=== PATIENT | female | born 1970 | race Caucasian/White ===

== ENCOUNTER → 2018-03-30 08:31 | Outpatient (CLI) | payer BC, SELFPAY ==
[2018-03-30 09:02] LABS: Alanine Aminotransferase 25 IU/L (9-52); Albumin 4.2 g/dL (3.5-5.0); Albumin Globulin Ratio 1.4 (1.0-2.8); Alkaline Phosphatase 61 U/L (38-126); Aspartate Aminotransferase 19 IU/L (14-36); BUN Creatinine Ratio 26.3 (6-22); Bilirubin Total 0.7 mg/dL (0.2-1.3); Blood Urea Nitrogen 21 mg/dL (7-17); Calcium 9.4 mg/dL (8.4-10.2); Carbon Dioxide 35 mmol/L (22-32); Chloride 101 mmol/L (98-107); Cholesterol 202 mg/dL (140-199); Estimated Glomerular Filt Rate > 60.0 mL/min (>60); Globulin 3.1 g/dL (1.7-4.1); Glucose 102 mg/dL (70-100); HDL Cholesterol 64 mg/dL (40-60); HEMOLYSIS < 15 (0-50); LDL Cholesterol Calculated 122 mg/dL (<100); Potassium 4.1 mmol/L (3.4-5.1); Sodium 143 mmol/L (137-145); Total Protein 7.3 g/dL (6.3-8.2); Triglycerides 79 mg/dL (35-150)
== END ==
PROVIDERS: Family Provider Naturopath; PCP Internal Medicine; Visit Provider Internal Medicine
DX: Z00.00 Encounter for general adult medical examination without abnormal findings (principal); E55.9 Vitamin D deficiency, unspecified
CPT/HCPCS: 36415; 80053; 80061; 82306

== ENCOUNTER 2018-09-07 19:25 | Emergency (ER) | payer BC, SELFPAY ==
[2018-09-07 19:30] VITALS: BP 145/101; PULSE 92; RESP 20; TEMP 36.6; O2SAT 100; BMI 28.3
--- NOTE | 2018-09-07 19:31 | ED.GENADULT ---
HPI - General Adult General Chief complaint: Arrhythmia/Palpitations Stated complaint: palpitations and sob, sent by walk in Time Seen by Provider: 09/07/18 19:30 Source: patient Mode of arrival: ambulatory Limitations: no limitations History of Present Illness HPI narrative: Patient is an otherwise healthy 48-year-old female here for evaluation of palpitations. She was sent over from the walk-in clinic. She states that over the weekend she started to notice palpitations. They are difficult for her to describe. She is unsure as to how long they last but it seems to be a fairly short period of time. She states she does get short of breath when it happens. No chest pain. Does not get dizzy or pass out. She has noticed that for the past couple days they have become more pronounced. Has not tried anything for them prior to arrival. Related Data Home Medications Medication Instructions Recorded Confirmed acyclovir [Zovirax] #0 10/19/17 07/13/18 Allergies Allergy/AdvReac Type Severity Reaction Status Date / Time cefaclor Allergy Unknown RASH Verified 04/12/18 12:21 Review of Systems Constitutional Denies fever(s) and Denies headache(s) ENT Ears, Nose, Mouth, and Throat: Denies headache(s) Cardiovascular Denies chest pain, Reports palpitations and Reports dyspnea Respiratory Reports dyspnea Gastrointestinal Gastrointestinal: Denies abdominal pain, Denies nausea and Denies vomiting Musculoskeletal Denies myalgias and Denies arthralgias Integumentary/Breasts Denies rash Neurologic Denies behavioral changes and Denies headache(s) Psychiatric Denies behavioral changes Endocrine Reports palpitations Hematologic/Lymphatic Comments: Not on anticoagulation PFSH Medical History Healthy adult (Acute) Surgical History History of sinus surgery (Resolved 1989) Social History Smoking Status: Never smoker Social History Smoking Status: Never smoker Exam Initial Vital Signs Initial Vital Signs: Vital Signs Temperature 97.9 F 09/07/18 19:30 Pulse Rate 92 H 09/07/18 19:30 Respiratory Rate 20 09/07/18 19:30 Blood Pressure 145/101 H 09/07/18 19:30 Pulse Oximetry 100 09/07/18 19:30 Const General: cooperative, healthy appearing, comfortable, well developed, well groomed and No acute distress Orientation: alert, awake and oriented x3 HENMT Head: normal to inspection and normocephalic Chest Chest: normal inspection of the chest Resp Effort & Inspection: normal respiratory effort Auscultation: clear to auscultation bilaterally Cardio Rate: regular rate Rhythm: regular rhythm Pulses: radial pulses present GI Inspection: non-distended Palpation: soft Skin Lesions: no lesions Rashes: no rashes Neuro General: alert, awake and oriented x3 Cognition: normal cognition Speech: speech normal Extrem General: normal to inspection and capillary refill normal Psych Appearance: grossly normal and well kempt Course Orders Ordered: ED Orders 09/07/18 19:36 EKG-12 Lead Stat 09/07/18 20:07 Basic Metabolic Panel Stat Complete Blood Count AUTO DIFF Stat Vital Signs - 8 hr 09/07/18 19:30 09/07/18 20:00 Temperature 97.9 F Pulse Rate 92 H 85 Respiratory Rate 20 16 Blood Pressure 145/101 H Blood Pressure [Left Arm] 132/94 H Pulse Oximetry 100 100 Medical Decision Making Lab Data Lab results reviewed: Yes I reviewed the patient's lab results. Result diagrams: 09/07/18 20:07 09/07/18 20:07 Lab Results 09/07/18 09/07/18 Range/Units 20:07 20:07 WBC 7.1 (4.5-11.0) X10^3/uL RBC 4.88 (4.0-5.2) X10^6/uL Hgb 13.8 (12.0-16.0) g/dL Hct 41.3 (36-46) % MCV 84.6 (80-100) fL MCH 28.4 (26-34) PG MCHC 33.5 (30-36) % RDW 13.7 (11.6-14.8) % Plt Count 264 (150-400) X10^3/uL Neut % (Auto) 64.3 (50-75) % Lymph % (Auto) 27.5 (25-40) % [place]acier % (Auto) 6.2 (3-14) % Eos % (Auto) 1.5 L (2-4) % Baso % (Auto) 0.5 (0-2) % Neut # (Auto) 4600 (9746-8818) /uL Lymph # (Auto) 2000 (1677-9005) /uL Glac[place] # (Auto) 400 (0-900) /uL Eos # (Auto) 100 (0-450) /uL Baso # (Auto) 0 (0-100) /uL Sodium 139 (137-145) mmol/L Potassium 3.4 (3.4-5.1) mmol/L Chloride 101 (98-107) mmol/L Carbon Dioxide 29 (22-32) mmol/L BUN 21 H (7-17) mg/dL Creatinine 0.70 (0.52-1.04) mg/dL Estimated GFR > 60.0 (>60) mL/min BUN/Creatinine Ratio 30.0 H (6-22) Glucose 141 H (70-100) mg/dL Calcium 9.2 (8.4-10.2) mg/dL ECG Data Attestation: I personally reviewed and interpreted this ECG as follows: Prior ECG tracings: not available for review Interpretation: sinus rhythm LVH Normal QRS normal QTC Nonspecific ST T wave changes ventricular rate 82 MDM Narrative Medical decision making narrative: patient's labs are unremarkable. EKG is unremarkable. Were unable to catch any abnormal rhythms while she was being monitored here in the ER. We did discuss return precautions. We did discuss that she needed to follow up with her primary doctor to discuss the indications for a Holter monitor. Will hold on further workup for now. Patient expressed understanding and agreement with plan. Discharge Plan Departure Patient Disposition: Home Clinical Impression: Palpitations Instructions: DI for Palpitations Activity Restrictions/Additional Instructions: recommend that you contact your primary care doctor tomorrow to schedule a follow-up appointment to discuss the indications for a Holter monitor. Return to the emergency department for any new or worsening symptoms Prescriptions: No Action acyclovir [Zovirax] 200 mg Capsule Qty: 0 RF: 0 Referrals: Roseanna Joshi MD [Primary Care Provider] -
[2018-09-07 20:00] VITALS: BP 132/94; PULSE 85; RESP 16; O2SAT 100
[2018-09-07 20:15] LABS: Add Manual Diff / Slide Review NO; Basophils Absolute Auto 0 /uL (0-100); Basophils Percent Auto 0.5 % (0-2); Eosinophils Absolute Auto 100 /uL (0-450); Eosinophils Percent Auto 1.5 % (2-4); Hematocrit 41.3 % (36-46); Hemoglobin 13.8 g/dL (12.0-16.0); Lymphocytes Absolute Auto 2000 /uL (1100-4500); Lymphocytes Percent Auto 27.5 % (25-40); Mean Corpuscular HGB Conc 33.5 % (30-36); Mean Corpuscular Hemoglobin 28.4 PG (26-34); Mean Corpuscular Volume 84.6 fL (80-100); Monocytes Absolute Auto 400 /uL (0-900); Monocytes Percent Auto 6.2 % (3-14); Neutrophils Absolute Auto 4600 /uL (1500-7000); Neutrophils Percent Auto 64.3 % (50-75); Platelet Count 264 X10^3/uL (150-400); Red Blood Cell Count 4.88 X10^6/uL (4.0-5.2); Red Cell Distribution Width 13.7 % (11.6-14.8); White Blood Cell Count 7.1 X10^3/uL (4.5-11.0)
[2018-09-07 20:28] LABS: Blood Urea Nitrogen 21 mg/dL (7-17); Calcium 9.2 mg/dL (8.4-10.2); Carbon Dioxide 29 mmol/L (22-32); Chloride 101 mmol/L (98-107); Estimated Glomerular Filt Rate > 60.0 mL/min (>60); Glucose 141 mg/dL (70-100); HEMOLYSIS < 15 (0-50); Potassium 3.4 mmol/L (3.4-5.1); Sodium 139 mmol/L (137-145)
[2018-09-07 21:00] VITALS: BP 137/82; PULSE 80; RESP 14; O2SAT 97
== END 2018-09-07 21:11 | disposition home or self-care (01) ==
PROVIDERS: Emergency Provider Emergency Medicine; Family Provider Naturopath; PCP Internal Medicine
DX: R00.2 Palpitations (principal)
CPT/HCPCS: 36415; 80048; 85025; 93005; 93010; 99282; 99284

== ENCOUNTER → 2018-09-09 13:23 | Outpatient (CLI) | payer BC, SELFPAY ==
[2018-09-09 14:00] LABS: B Type Natriuretic Peptide < 100 (<100)
[2018-09-09 14:28] LABS: Erythrocyte Sedimentation Rate 7 MM/HR (0-20)
[2018-09-09 15:56] LABS: C-Reactive Protein Quant 0.7 mg/dL (<1.0)
[2018-09-09 16:10] LABS: Free T4, Direct Thyroxine 0.97 ng/dL (0.78-2.19)
[2018-09-09 16:24] LABS: Thyroid Stimulating Hormone 1.34 uIU/mL (0.47-4.68)
== END ==
PROVIDERS: PCP Internal Medicine; Visit Provider Internal Medicine
DX: R00.2 Palpitations (principal); R06.00 Dyspnea, unspecified
CPT/HCPCS: 36415; 83880; 84439; 84443; 85651; 86140

== ENCOUNTER → 2018-09-20 11:07 | Outpatient (CLI) | payer BC, SELFPAY ==
[2018-09-20 12:19] LABS: C-Reactive Protein Quant 0.9 mg/dL (<1.0)
[2018-09-20 12:31] LABS: B Type Natriuretic Peptide < 100 (<100)
[2018-09-20 13:02] LABS: Free T4, Direct Thyroxine 0.99 ng/dL (0.78-2.19)
[2018-09-20 13:16] LABS: Thyroid Stimulating Hormone 1.23 uIU/mL (0.47-4.68)
[2018-09-20 13:24] LABS: Erythrocyte Sedimentation Rate 7 MM/HR (0-20)
== END ==
PROVIDERS: PCP Internal Medicine; Visit Provider Internal Medicine
DX: R00.2 Palpitations (principal); R06.00 Dyspnea, unspecified
CPT/HCPCS: 36415; 83880; 84439; 84443; 85651; 86140

== ENCOUNTER → 2018-09-26 09:35 | Outpatient (CLI) | payer BC, SELFPAY ==
[2018-09-26 11:00] LABS: Add Manual Diff / Slide Review NO; Basophils Absolute Auto 0 /uL (0-100); Basophils Percent Auto 0.2 % (0-2); Eosinophils Absolute Auto 100 /uL (0-450); Eosinophils Percent Auto 2.3 % (2-4); Hematocrit 41.4 % (36-46); Hemoglobin 13.6 g/dL (12.0-16.0); Lymphocytes Absolute Auto 1700 /uL (1100-4500); Lymphocytes Percent Auto 31.9 % (25-40); Mean Corpuscular HGB Conc 32.9 % (30-36); Mean Corpuscular Volume 85.3 fL (80-100); Monocytes Absolute Auto 400 /uL (0-900); Monocytes Percent Auto 6.8 % (3-14); Neutrophils Absolute Auto 3100 /uL (1500-7000); Neutrophils Percent Auto 58.8 % (50-75); Platelet Count 260 X10^3/uL (150-400); Red Blood Cell Count 4.85 X10^6/uL (4.0-5.2); Red Cell Distribution Width 13.8 % (11.6-14.8); White Blood Cell Count 5.3 X10^3/uL (4.5-11.0)
[2018-09-26 11:04] LABS: Hemoglobin A1C% w Est Avg Glu 5.6 % (4.0-6.0)
[2018-09-26 11:22] LABS: Alanine Aminotransferase 21 IU/L (9-52); Albumin 4.2 g/dL (3.5-5.0); Albumin Globulin Ratio 1.5 (1.0-2.8); Alkaline Phosphatase 67 U/L (38-126); Aspartate Aminotransferase 17 IU/L (14-36); BUN Creatinine Ratio 32.9 (6-22); Bilirubin Total 0.4 mg/dL (0.2-1.3); Blood Urea Nitrogen 23 mg/dL (7-17); Calcium 9.1 mg/dL (8.4-10.2); Carbon Dioxide 27 mmol/L (22-32); Chloride 103 mmol/L (98-107); Estimated Glomerular Filt Rate > 60.0 mL/min (>60); Globulin 2.8 g/dL (1.7-4.1); Glucose 94 mg/dL (70-100); HEMOLYSIS < 15 (0-50); Potassium 4.1 mmol/L (3.4-5.1); Sodium 139 mmol/L (137-145)
== END ==
PROVIDERS: PCP Internal Medicine; Visit Provider Internal Medicine
DX: R73.9 Hyperglycemia, unspecified (principal); R00.2 Palpitations
CPT/HCPCS: 36415; 80053; 83036; 85025

== ENCOUNTER → 2018-09-29 14:56 | Outpatient (CLI) | payer BC, SELFPAY ==
--- NOTE | 2018-09-29 | DI.ECHO.S_ITS ---
[place] +---------+ Hospital +---------+ : : [address] : : : : [id number] : : : : Phone: [phone]+ Echocardiogram Report + + :Name: CATHY NIX Study Date: 09/29/2018 Height: 66 in : :[facility] Weight: 160 lb : : Gender: Female BSA: 1.8 m2 : :: 1970 Age: 48 yrs BP: 138/86 mmHg: :Reason For Study: Dyspnea, Palpitations : :Ordering Physician: Isaac : :Adi Performed By: Coco Ledesma : :Referring: ISAAC GATES : + + Interpretation Summary Normal sinus rhythm. Normal LV size, wall thickness, wall motion and LV systolic function. EF is 60-65%. No diastolic dysfunction. Normal chamber sizes. No valvular abnormalities. A very small pericardial effusion. No prior study available for comparison. Procedure: A two-dimensional transthoracic echocardiogram with color flow and Doppler was performed. The study quality was technically adequate. There is no prior echocardiogram noted for this patient. The patient was in normal sinus rhythm during the exam. Left Ventricle: The left ventricle is normal in size, wall thickness, and systolic function without any focal wall motion abnormalities. There is no ventricular septal defect visualized. The ejection fraction is estimated to be 65-70%. Diastolic parameters suggest probable normal left ventricular diastolic function and normal filling pressures. Right Ventricle: The right ventricle is normal in size and function. Atria: Both atria are normal in size. There is no Doppler evidence for an interatrial shunt. Mitral Valve: The mitral valve is normal in structure and function. There is no mitral regurgitation noted. Aortic Valve: The aortic valve is normal in structure and function. No aortic regurgitation is present. Tricuspid Valve: The tricuspid valve is normal in structure and function. There is a trace or physiologic amount of tricuspid regurgitation. Pulmonary artery pressures cannot be estimated because of the lack of a measurable TR jet velocity. Pulmonic Valve: The pulmonic valve is not well seen, but is grossly normal. There is a trace or physiologic amount of pulmonic regurgitation. Great Vessels: The aortic root is normal size. The ascending aorta is normal in size. The aortic arch is normal in size. The IVC is of normal diameter and collapses greater than 50% with a sniff. This suggests a low right atrial pressure of 3 mm Hg. Pericardium/ Pleura There are no echocardiographic or Doppler indications for cardiac tamponade. A very small pericardial effusion, located in the mid- posterior section behind the RV. MMode/2D Measurements & Calculations LVIDd: 4.4 cm LVOT diam: 1.9 cm LVIDs: 2.3 cm Ao root diam: 2.7 cm FS: 47.5 % Aortic Jxn: 2.2 cm EPSS: 0.20 cm asc Aorta Diam: 2.8 cm IVSd: 0.52 cm Ao Arch Diam (Prox Trans): 2.5 cm LVPWd: 0.94 cm LV mary. diameter/BSA (cm/m^2): 2.4 LV sys. diameter/BSA (cm/m^2): 1.3 LA A2 area: 15.8 cm2 RA long axis: 4.4 cm LA A4 area: 16.4 cm2 RA area: 11.9 cm2 LA length (vol): 4.3 cm RA vol: 27.8 ml LA vol: 51.5 ml RA : 15.3 ml/m2 LA vol index: 28.3 ml/m2 IVC diam: 1.3 cm TAPSE: 2.7 cm Doppler Measurements & Calculations Ao V2 max: 135.8 cm/sec LVOT Max Gustavo: 109.3 cm/sec Ao V2 mean: 87.5 cm/sec LV V1 max P.8 mmHg Ao max P.4 mmHg LV V1 VTI: 21.4 cm Ao mean P.5 mmHg DORIAN(I,D): 2.3 cm2 Ao V2 VTI: 26.7 cm DORIAN(V,D): 2.3 cm2 sev ratio: 0.80 DORIAN indexed to BSA (cm^2/m^2): 1.3 MV E max gustavo: 66.6 cm/sec PA V2 max: 75.7 cm/sec MV A max gustavo: 55.0 cm/sec PA V2 mean: 57.0 cm/sec MV E/A: 1.2 PA mean P.4 mmHg Med Peak E' Gustavo: 8.4 cm/sec PA pr(Accel): 29.1 mmHg E/E' med: 7.9 Lat Peak E' Gustavo: 10.9 cm/sec E/E' lat: 6.1 E/e' average: 7.0 MV dec time: 0.18 sec MV P1/2t: 52.3 msec MV P1/2t max gustavo: 66.8 cm/sec SV(LVOT): 62.4 ml MALORIE(P1/2t): 4.2 cm2 Electronically signed by: Meera Cuba M.D. on Reading Physician:09/30/2018 02:57 AM
== END ==
PROVIDERS: Family Provider Internal Medicine; PCP Internal Medicine; Visit Provider Internal Medicine
DX: R06.00 Dyspnea, unspecified (principal); R00.2 Palpitations; I31.3 Pericardial effusion (noninflammatory)
CPT/HCPCS: 93306

== ENCOUNTER → 2018-09-30 08:06 | Outpatient (CLI) | payer BC, SELFPAY ==
--- NOTE | 2018-09-30 | DI.RAD.S_ITS ---
PROCEDURE: XR CHEST 2V INDICATIONS: CHEST PAIN TECHNIQUE: 2 views of the chest were acquired. COMPARISON: [facility], , CHEST 2 VIEW, 06/17/2016, 14:27. FINDINGS: Surgical changes and devices: None. Lungs and pleura: Lungs are clear. No pleural effusions or pneumothorax. Mediastinum: Mediastinal contours are normal. Heart size is normal. Bones and chest wall: No suspicious bony abnormalities. Soft tissues appear unremarkable. IMPRESSION: Normal for age, a source of current chest pain symptoms is not found. Dictated by: Grady Villa M.D. on 09/30/2018 at 10:05 Approved by: Grady Villa M.D. on 09/30/2018 at 10:05
--- NOTE | 2018-09-30 09:38 | PM.TREADMILL ---
Cardiac Stress Test Report Referral & Results Date Patient Seen: 09/30/18 Requesting provider: Azra Watts Indication: Chest pain Rest ECG: Unremarkable Procedure Note: Today following both written and verbal informed consent, the patient was exercised according to a standard [place] protocol. The patient exercised for a total of 10 minutes 5 seconds achieving a maximum heart rate of 145 approximately (lots of motion artifact obscures ability to see heart rate). Patient's maximum systolic blood pressure was 160 for. This was an estimated 10.[address]-T segment changes were identified upon immediate cessation of activity. There was a tremendous amount of motion artifact while patient was actually exercising that obscured ability to see ST segments. Normal heart rate and blood pressure response Functional aerobic impairment rates-20% on the active scale Impression: No evidence of ischemia. Artifact was present but there is absolutely no change upon immediate cessation of activity thus making it extremely unlikely any significant ischemia or dysrhythmia were present. Excellent exercise capacity Clinical correlation suggested Please note: Actual ECG tracings can be found in the PACS system.
== END ==
PROVIDERS: Family Provider Internal Medicine; PCP Internal Medicine; Visit Provider Internal Medicine
DX: R07.9 Chest pain, unspecified (principal); R06.09 Other forms of dyspnea
CPT/HCPCS: 71046; 93016; 93017; 93018

== ENCOUNTER → 2018-10-06 10:46 | Outpatient (CLI) | payer BC, SELFPAY ==
[2018-10-06 12:05] LABS: Erythrocyte Sedimentation Rate 8 MM/HR (0-20)
[2018-10-06 12:40] LABS: C-Reactive Protein Quant 0.9 mg/dL (<1.0); Creatine Kinase 35 U/L (30-135)
[2018-10-06 12:42] LABS: Rheumatoid Factor 13.2 IU/mL (<12.0)
[2018-10-06 12:45] LABS: Troponin I < 0.012 ng/mL (0.01-0.034)
[2018-10-08 11:31] LABS: CCP Antibody (IgG) < 16 Units (< 20)
[2018-10-08 15:04] LABS: ANA Screen, IFA Negative (Negative)
[2018-10-11 20:43] LABS: Acetylcholine receptor antibod 9
== END ==
PROVIDERS: Family Provider Internal Medicine; PCP Internal Medicine; Visit Provider Internal Medicine
DX: I31.3 Pericardial effusion (noninflammatory) (principal); R06.00 Dyspnea, unspecified; R49.0 Dysphonia; R53.1 Weakness
CPT/HCPCS: 36415; 82550; 83516; 83519; 84484; 85651; 86038; 86140; 86430

== ENCOUNTER → 2018-10-15 09:00 | Outpatient (CLI) | payer BC, SELFPAY ==
[2018-10-17 12:32] LABS: Angiotensin Converting Enzyme 44 U/L (9-67)
== END ==
PROVIDERS: PCP Internal Medicine; Visit Provider Internal Medicine
DX: R06.00 Dyspnea, unspecified (principal); R00.2 Palpitations; R76.8 Other specified abnormal immunological findings in serum
CPT/HCPCS: 36415; 82164

== ENCOUNTER → 2018-10-28 09:49 | Outpatient (CLI) | payer BC, SELFPAY ==
--- NOTE | 2018-10-28 09:52 | DI.CT.S_ITS ---
PROCEDURE: CT CHEST HIGH RESOLUTION INDICATIONS: Pericardial effusion (noninflammatory) TECHNIQUE: Noncontrast 1.0 and 5.0 mm thick contiguous axial sections from the pulmonary apex to the posterior costophrenic angles, with 7 mm thick coronal and sagittal MIP reformats. 1 mm thick dynamic expiratory images acquired through the upper, mid, and lower lungs. 1.0 mm thick axial sections acquired from the delfin to the posterior costophrenic angles in the prone end-inspiration position. For radiation dose reduction, the following was used: automated exposure control, adjustment of mA and/or kV according to patient size. COMPARISON: [facility], CR, XR CHEST 2V, 09/30/2018, 9:25. FINDINGS: Image quality: Excellent. Lungs: The lung parenchyma appears normal, there is no sign of alveolitis or pulmonary fibrosis. Pleura: No pleural effusions or pneumothorax. Mediastinum: Heart size is normal. No pericardial effusion. Thoracic aorta and central pulmonary arteries are normal in size. Esophagus is normal in caliber. Bones and chest wall: No suspicious bony lesions. No vertebral body compression fractures. Abdomen: Visualized upper abdominal solid organs and bowel loops appear normal. IMPRESSION: The clinical history indicates concern for presence of pericardial effusion. No pericardial effusion is found. Through the lung parenchyma there is no sign of pulmonary fibrosis or alveolitis. No bronchiectasis or bronchitis is found. Study appears normal for age. Dictated by: Grady Villa M.D. on 10/28/2018 at 11:36 Approved by: Grady Villa M.D. on 10/28/2018 at 11:38
== END ==
PROVIDERS: PCP Internal Medicine; Visit Provider Internal Medicine
DX: I31.3 Pericardial effusion (noninflammatory) (principal)
CPT/HCPCS: 71250

== ENCOUNTER → 2018-11-11 12:49 | Outpatient (CLI) | payer BC, SELFPAY ==
--- NOTE | 2018-11-22 15:27 | PM.PFT.1 ---
Pulmonary Function Test Referral & Results Date Patient Seen: 11/11/18 Requesting provider: Azra Watts Results: The spirometry demonstrates an FVC of 3.40 L which is 91% of predicted. The FEV1 was measured at 2.80 L which is 94% of predicted. The FEV1/FVC ratio was 82 which is 102% of predicted. Following the administration of bronchodilator there was no appreciable change to above normal numbers. Lung volumes show an SVC of 3.34 L which is 97% of predicted. The diffusing capacity was measured at 20.73 which is 78% of predicted. No hemoglobin value was provided, so no correction for potential anemia could be made, if appropriate. The maximum voluntary ventilation was normal Interpretation: This study demonstrates normal spirometry and minimal reduction in diffusing capacity suggesting perhaps some element of disease the capillary alveolar level, unless patient is anemic
== END ==
PROVIDERS: PCP Internal Medicine; Visit Provider Internal Medicine
DX: R06.00 Dyspnea, unspecified (principal)
CPT/HCPCS: 94060; 94726; 94729

== ENCOUNTER → 2019-01-03 11:43 | Outpatient (CLI) | payer BC, SELFPAY ==
--- NOTE | 2019-01-03 | DI.RAD.S_ITS ---
PROCEDURE: XR PELVIS 1-2V INDICATIONS: Pelvic pain TECHNIQUE: 1 view(s) of the pelvis acquired. COMPARISON: None. FINDINGS: Bones: No fractures or dislocations. No suspicious bony lesions. Mild sacroiliac joint degeneration bilaterally. Soft tissues: Visualized bowel gas pattern is normal. No suspicious soft tissue calcifications. IMPRESSION: Mild sacroiliac joint degeneration bilaterally. Dictated by: Jordan Helms M.D. on 01/03/2019 at 14:11 Approved by: Jordan Helms M.D. on 01/03/2019 at 14:12
== END ==
PROVIDERS: PCP Internal Medicine; Visit Provider Internal Medicine
DX: R10.2 Pelvic and perineal pain (principal); M47.818 Spondylosis without myelopathy or radiculopathy, sacral and sacrococcygeal region
CPT/HCPCS: 72170

== ENCOUNTER → 2019-05-29 15:39 | Outpatient (RCR) | payer BC, SELFPAY ==
--- NOTE | 2017-11-09 13:37 | PT.OTN ---
Current Diagnoses Unspecified temporomandibular joint disorder, unspecified side (11/26/17) Cervicalgia (11/26/17) Abnormal posture (11/26/17) Headache (11/26/17) Weakness (11/26/17) Transition note: On November 09, 2017 our therapy services consisting of Speech, Occupational, and Physical Therapy transitioned from the [employer] electronic documentation system to a new [employer] electronic documentation system.?? All documentation prior to November 09 can be found under [employer] saved data. From November 09 forward all medical record documentation will be in [employer] 6[employer]1.
--- NOTE | 2017-11-26 14:54 | PT.OTN ---
Current Diagnoses Unspecified temporomandibular joint disorder, unspecified side (11/26/17) Cervicalgia (11/26/17) Abnormal posture (11/26/17) Headache (11/26/17) Weakness (11/26/17) Physical Therapy Treatment Note PT-OP-A Visit Information Start: 11/11/17 12:01 Freq: Status: Active Protocol: Document 11/26/17 13:00 [facility] (Rec: 11/26/17 14:54 [facility] [id number]) Out-Patient Physical Therapy Visit Information Visit Information Visit Type Progress Note Visit Start Time 13:00 Visit Stop Time 14:00 Total Visit Minutes 60 Number of ELECTROTHERAPIST Visits 0 PT-OP-C Subjective Start: 11/11/17 12:01 Freq: Status: Active Protocol: Document 11/26/17 13:00 [facility] (Rec: 11/26/17 14:54 [facility] [id number]) OP-PT Subjective Patient Comments Patient Comments Pt reports dog ate new glasses last and Wednesday she had a bad OLIVERA. Reports R sided neck & jaw tension. Neck is making clicking/rubbing noises . Has been doing jaw exercises daily, sometimes 2x/day. Maybe more as she does them intermittenly during day. PT-OP-J Posture/Palpation/Skin Start: 11/11/17 12:01 Freq: Status: Active Protocol: Document 11/26/17 13:00 [facility] (Rec: 11/26/17 14:54 [facility] [id number]) Posture Evaluation Comments Posture Comments sitting and standing posture- mild fwd shoulders & mod fwd head Palpation Assessment Location One Palpation Location jaw Palpation Findings Soft Tissue Tightness Tenderness Trigger Point Palpation Details R>L masseter, temporalis, digastric, pterygoid PT-OP-K Range of Motion Start: 11/11/17 12:01 Freq: Status: Active Protocol: Document 11/26/17 13:00 [facility] (Rec: 11/26/17 14:54 [facility] [id number]) Cervical Spine Range of Motion Cervical Spine Active Degrees Testing Position Sitting Flexion 60 Extension 65 Rotation Left 80 Rotation Right 73 Lateral Flexion Left 45 Lateral Flexion Right 45 Comments dizziness with looking up TMJ Range of Motion Jaw Openning Jaw Openning (mm) 3.1 cm Jaw Deviation Deviation Left (mm) 1 cm Deviation Right (mm) 1 cm PT-OP-M Strength Start: 11/11/17 12:01 Freq: Status: Active Protocol: Document 11/26/17 13:00 [facility] (Rec: 11/26/17 14:54 [facility] [id number]) Shoulder Strength Shoulder Manual Muscle Testing Right Reason Not Measured WFL Comments tested Left Reason Not Measured WFL Comments tested PT-OP-Q Treatments Start: 11/11/17 12:01 Freq: Status: Active Protocol: Document 11/26/17 13:00 [facility] (Rec: 11/26/17 14:54 [facility] [id number]) Manual Therapy Treatment Soft Tissue Mobilization 2 Body Location joint capsule/ptyergoid Mobilization Type Sustained Pressure Intensity/Depth Moderate Body Position Supine 1 Body Location Temporalis, masseter, digastric Mobilization Type Rolling Sustained Pressure Intensity/Depth Moderate Body Position Supine Joint Mobilizations 1 Joint TMJ Direction AP Grade II Body Position Supine PT-OP-R Modalities Start: 11/11/17 12:01 Freq: Status: Active Protocol: Document 11/26/17 13:00 [facility] (Rec: 11/26/17 14:54 [facility] [id number]) Hot Pack/Cold Pack Treatment Hot Pack Location Cervical & jaw Patient Position Hooklying Treatment Duration (minutes) 15 PT-OP-T Assessment and Plan Start: 11/11/17 12:01 Freq: Status: Active Protocol: Document 11/26/17 13:00 [facility] (Rec: 11/26/17 14:54 [facility] [id number]) Physical Therapy Assessment Impairments Impairments Pain Posture ROM Soft Tissue Mobility Strength Goals Five Impairment C-spine ROM Mcc Goal (LTG) WNL cervical ROM wihotu radicular pain into jaw region LTG Duration 12/05/17-achieved Four Impairment anterior posture iwth fwd head & shoulders Short Term Goal (STG) Good posture without cueing STG Duration by 12/27/1749-jjoiluhbjbo-kbfu to require cueing Three Impairment TMJ ROM Mcc Goal (LTG) open to 45 mm to allow pt to eat all food LTG Duration by 01/26/18 Two Impairment Am pain, worse in evening, cannot each cruchy food, pops w/yawn Mcc Goal (LTG) Able to eat all textures without pain LTG Duration by 01/26/18 One Impairment pain Mcc Goal (LTG) dec pain in TMJ to 1/10 at end of day. LTG Duration by 01/26/18 Assessment Summary Assessment Pt had improved cervical ROM with no radicular pain into jaw but did have dizziness with cervical ext. Pt has improved jaw deviation to normal but cont lasting deviation to L with jaw opening with occasional popping. Physical Therapy Plan Frequency and Duration Frequency of Treatment 1x/Week Duration of Treatment 2 months Plan of Care Start Date 11/26/17 Plan of Care End Date 01/26/18 Therapeutic Interventions Therapeutic Interventions Home Exercise Program Joint Mobilizations Manual Therapy Patient/Caregiver Education Self-Care/Home Management Soft Tissue Mobilization Taping Therapeutic Exercises Modalities Cold Pack/Ice Massage Electric Stimulation Hot Packs Traction- Mechanical Next Visit Focus/Plan Next Visit Plan Cont to work on jaw mobility
--- NOTE | 2017-11-26 14:55 | PT.OPPOC ---
Current Diagnoses Unspecified temporomandibular joint disorder, unspecified side (11/26/17) Cervicalgia (11/26/17) Abnormal posture (11/26/17) Headache (11/26/17) Weakness (11/26/17) Provider Visit Care Team Role Provider Type Roseanna Joshi MD Primary Care Provider Physician Specialty: Internal Medicine Address: [address] [place] [address], [id number] Email: Lisandra Madrigal ND Family Provider Non-Staff Specialty: Naturopathy Address: [address] [place] [address], [id number] Email: Eliceo Mcmullen DO Attending Provider Non-Staff Specialty: Neurology Address: [address] [place] [address], [address] Email: Plan Of Care PT-OP-T Assessment and Plan Start: 11/11/17 12:01 Freq: Status: Active Protocol: Document 11/26/17 13:00 [facility] (Rec: 11/26/17 14:54 [facility] [id number]) Physical Therapy Assessment Impairments Impairments Pain Posture ROM Soft Tissue Mobility Strength Goals Five Impairment C-spine ROM Predatory Game Hunter Goal (LTG) WNL cervical ROM wihotu radicular pain into jaw region LTG Duration 12/05/17-achieved Four Impairment anterior posture iwth fwd head & shoulders Short Term Goal (STG) Good posture without cueing STG Duration by 12/27/1776-[id number]-[id number] to require cueing Three Impairment TMJ ROM Senior Care Goal (LTG) open to 45 mm to allow pt to eat all food LTG Duration by 01/26/18 Two Impairment Am pain, worse in evening, cannot each cruchy food, pops w/yawn Senior Care Goal (LTG) Able to eat all textures without pain LTG Duration by 01/26/18 One Impairment pain Senior Care Goal (LTG) dec pain in TMJ to 1/10 at end of day. LTG Duration by 01/26/18 Assessment Summary Assessment Pt had improved cervical ROM with no radicular pain into jaw but did have dizziness with cervical ext. Pt has improved jaw deviation to normal but cont lasting deviation to L with jaw opening with occasional popping. Physical Therapy Plan Frequency and Duration Frequency of Treatment 1x/Week Duration of Treatment 2 months Plan of Care Start Date 11/26/17 Plan of Care End Date 01/26/18 Therapeutic Interventions Therapeutic Interventions Home Exercise Program Joint Mobilizations Manual Therapy Patient/Caregiver Education Self-Care/Home Management Soft Tissue Mobilization Taping Therapeutic Exercises Modalities Cold Pack/Ice Massage Electric Stimulation Hot Packs Traction- Mechanical Next Visit Focus/Plan Next Visit Plan Cont to work on jaw mobility Plan of Care Dates Plan of Care Start Date 11/26/17 Plan of Care End Date 01/26/18 Please Sign and Return: I have reviewed this Plan of Care and certify that the skilled therapy services above are required to meet the patient???s needs. Physician Signature Date Printed Name and Credentials
--- NOTE | 2017-12-03 15:16 | PT.OTN ---
Current Diagnoses Unspecified temporomandibular joint disorder, unspecified side (12/03/17) Cervicalgia (12/03/17) Abnormal posture (12/03/17) Headache (12/03/17) Weakness (12/03/17) Physical Therapy Treatment Note PT-OP-A Visit Information Start: 11/11/17 12:01 Freq: Status: Active Protocol: Document 12/03/17 15:08 [facility] (Rec: 12/03/17 15:16 [facility] [id number]) Out-Patient Physical Therapy Visit Information Visit Information Visit Type Treatment Note Visit Start Time 12:15 Visit Stop Time 13:00 Total Visit Minutes 45 Number of SUMMER ASSOCIATE Visits 0 PT-OP-C Subjective Start: 11/11/17 12:01 Freq: Status: Active Protocol: Document 12/03/17 15:08 [facility] (Rec: 12/03/17 15:16 [facility] [id number]) OP-PT Subjective Patient Comments Patient Comments Pt reports she has had some tension in her neck on R side and feels tight in her R jaw. PT-OP-J Posture/Palpation/Skin Start: 11/11/17 12:01 Freq: Status: Active Protocol: Document 11/26/17 13:00 [facility] (Rec: 11/26/17 14:54 [facility] [id number]) Posture Evaluation Comments Posture Comments sitting and standing posture- mild fwd shoulders & mod fwd head Palpation Assessment Location One Palpation Location jaw Palpation Findings Soft Tissue Tightness Tenderness Trigger Point Palpation Details R>L masseter, temporalis, digastric, pterygoid PT-OP-K Range of Motion Start: 11/11/17 12:01 Freq: Status: Active Protocol: Document 11/26/17 13:00 [facility] (Rec: 11/26/17 14:54 [facility] [id number]) Cervical Spine Range of Motion Cervical Spine Active Degrees Testing Position Sitting Flexion 60 Extension 65 Rotation Left 80 Rotation Right 73 Lateral Flexion Left 45 Lateral Flexion Right 45 Comments dizziness with looking up TMJ Range of Motion Jaw Openning Jaw Openning (mm) 3.1 cm Jaw Deviation Deviation Left (mm) 1 cm Deviation Right (mm) 1 cm PT-OP-M Strength Start: 11/11/17 12:01 Freq: Status: Active Protocol: Document 11/26/17 13:00 [facility] (Rec: 11/26/17 14:54 [facility] [id number]) Shoulder Strength Shoulder Manual Muscle Testing Right Reason Not Measured WFL Comments tested Left Reason Not Measured WFL Comments tested PT-OP-Q Treatments Start: 11/11/17 12:01 Freq: Status: Active Protocol: Document 12/03/17 15:08 [facility] (Rec: 12/03/17 15:16 [facility] [id number]) Therapeutic Exercises Sitting Exercises 2 Sitting Exercise Name jaw deviation 1 Sitting Exercise Name iso jaw opening partially openned Manual Therapy Treatment Soft Tissue Mobilization 3 Body Location Along jaw post & upper cervical region Mobilization Type Rolling Intensity/Depth Moderate Body Position Supine 2 Body Location joint capsule/ptyergoid Mobilization Type Sustained Pressure Intensity/Depth Moderate Body Position Supine 1 Body Location Temporalis, masseter, digastric Mobilization Type Rolling Sustained Pressure Intensity/Depth Moderate Body Position Supine Joint Mobilizations 2 Joint C1 Direction R UPA Grade II PT-OP-R Modalities Start: 11/11/17 12:01 Freq: Status: Active Protocol: Document 11/26/17 13:00 [facility] (Rec: 11/26/17 14:54 [facility] [id number]) Hot Pack/Cold Pack Treatment Hot Pack Location Cervical & jaw Patient Position Hooklying Treatment Duration (minutes) 15 PT-OP-T Assessment and Plan Start: 11/11/17 12:01 Freq: Status: Active Protocol: Document 12/03/17 15:08 [facility] (Rec: 12/03/17 15:16 [facility] [id number]) Physical Therapy Assessment Assessment Summary Assessment Pt had improved tracking of jaw with AP mobs & neuro re- edu, but is still limited with ROM for jaw opening. Tightness present greater on R side. Physical Therapy Plan Frequency and Duration Frequency of Treatment 1x/Week Duration of Treatment 2 months Plan of Care Start Date 11/26/17 Plan of Care End Date 01/26/18 Next Visit Focus/Plan Next Note Type Treatment Note Next Visit Plan Cont to work on jaw mobility Please Sign and Return: I have reviewed this Plan of Care and certify that the skilled therapy services above are required to meet the patient???s needs. Physician Signature Date Printed Name and Credentials Clinical Instructor Signature Printed Name and Credentials
--- NOTE | 2017-12-22 16:02 | PT.OTN ---
Current Diagnoses Unspecified temporomandibular joint disorder, unspecified side (12/22/17) Cervicalgia (12/22/17) Abnormal posture (12/22/17) Headache (12/22/17) Weakness (12/22/17) Physical Therapy Treatment Note PT-OP-A Visit Information Start: 11/11/17 12:01 Freq: Status: Active Protocol: Document 12/22/17 15:47 [facility] (Rec: 12/22/17 16:02 [facility] [id number]) Out-Patient Physical Therapy Visit Information Visit Information Visit Type Treatment Note Visit Start Time 12:15 Visit Stop Time 13:00 Total Visit Minutes 45 Number of AUTOMOBILE CLUB TRAVEL COUNSELOR Visits 0 PT-OP-C Subjective Start: 11/11/17 12:01 Freq: Status: Active Protocol: Document 12/22/17 15:47 [facility] (Rec: 12/22/17 16:02 [facility] [id number]) OP-PT Subjective Patient Comments Patient Comments Reports pain on/off. Has been working out more. PT-OP-J Posture/Palpation/Skin Start: 11/11/17 12:01 Freq: Status: Active Protocol: Document 11/26/17 13:00 [facility] (Rec: 11/26/17 14:54 [facility] [id number]) Posture Evaluation Comments Posture Comments sitting and standing posture- mild fwd shoulders & mod fwd head Palpation Assessment Location One Palpation Location jaw Palpation Findings Soft Tissue Tightness Tenderness Trigger Point Palpation Details R>L masseter, temporalis, digastric, pterygoid PT-OP-K Range of Motion Start: 11/11/17 12:01 Freq: Status: Active Protocol: Document 11/26/17 13:00 [facility] (Rec: 11/26/17 14:54 [facility] [id number]) Cervical Spine Range of Motion Cervical Spine Active Degrees Testing Position Sitting Flexion 60 Extension 65 Rotation Left 80 Rotation Right 73 Lateral Flexion Left 45 Lateral Flexion Right 45 Comments dizziness with looking up TMJ Range of Motion Jaw Openning Jaw Openning (mm) 3.1 cm Jaw Deviation Deviation Left (mm) 1 cm Deviation Right (mm) 1 cm PT-OP-M Strength Start: 11/11/17 12:01 Freq: Status: Active Protocol: Document 11/26/17 13:00 [facility] (Rec: 11/26/17 14:54 [facility] [id number]) Shoulder Strength Shoulder Manual Muscle Testing Right Reason Not Measured WFL Comments tested Left Reason Not Measured WFL Comments tested PT-OP-Q Treatments Start: 11/11/17 12:01 Freq: Status: Active Protocol: Document 12/22/17 15:47 [facility] (Rec: 12/22/17 16:02 [facility] [email or web address]) Therapeutic Exercises Supine Exercises 1 Supine Exercise Name stretch jaw opening Manual Therapy Treatment Soft Tissue Mobilization 3 Body Location Along jaw post & upper cervical region Mobilization Type Rolling Intensity/Depth Moderate Body Position Supine 2 Body Location joint capsule/ptyergoid Mobilization Type Sustained Pressure Intensity/Depth Moderate Body Position Supine 1 Body Location Temporalis, masseter, digastric Mobilization Type Rolling Sustained Pressure Intensity/Depth Moderate Body Position Supine Joint Mobilizations 2 Joint C1 Direction R UPA Grade II 1 Joint TMJ Direction AP & distraction Grade II Body Position Supine PT-OP-R Modalities Start: 11/11/17 12:01 Freq: Status: Active Protocol: Document 12/22/17 15:47 [facility] (Rec: 12/22/17 16:02 [facility] [id number]) Hot Pack/Cold Pack Treatment Hot Pack Location Cervical & jaw Patient Position Hooklying Treatment Duration (minutes) 15 PT-OP-T Assessment and Plan Start: 11/11/17 12:01 Freq: Status: Active Protocol: Document 12/22/17 15:47 [facility] (Rec: 12/22/17 16:02 [facility] [id number]) Physical Therapy Assessment Goals Five Impairment C-spine ROM Road Roller Engineer Goal (LTG) WNL cervical ROM wihotu radicular pain into jaw region LTG Duration 12/05/17-achieved Four Impairment anterior posture iwth fwd head & shoulders Short Term Goal (STG) Good posture without cueing STG Duration by 12/27/1784-[id number] to require cueing Three Impairment TMJ ROM Halfway Goal (LTG) open to 45 mm to allow pt to eat all food LTG Duration by 01/26/18 Two Impairment Am pain, worse in evening, cannot each cruchy food, pops w/yawn Road Roller Engineer Goal (LTG) Able to eat all textures without pain LTG Duration by 01/26/18 One Impairment pain Halfway Goal (LTG) dec pain in TMJ to 1/10 at end of day. LTG Duration by 01/26/18 Assessment Summary Assessment Pt is plateauing with jaw opening/closing and is following up with MD tomorrow. She is doing well with inc activity & dec OLIVERA and neck pain. Physical Therapy Plan Frequency and Duration Frequency of Treatment 1x/Week Duration of Treatment 2 months Plan of Care Start Date 11/26/17 Plan of Care End Date 01/26/18 Next Visit Focus/Plan Next Note Type Treatment Note Next Visit Plan Cont to work on jaw mobility & determine plan based on MD recommendations Please Sign and Return: I have reviewed this Plan of Care and certify that the skilled therapy services above are required to meet the patient?s needs. Physician Signature Date Printed Name and Credentials Clinical Instructor Signature Printed Name and Credentials
--- NOTE | 2018-01-05 14:27 | PT.OTN ---
Current Diagnoses Unspecified temporomandibular joint disorder, unspecified side (01/05/18) Cervicalgia (01/05/18) Abnormal posture (01/05/18) Headache (01/05/18) Weakness (01/05/18) Physical Therapy Treatment Note PT-OP-A Visit Information Start: 11/11/17 12:01 Freq: Status: Active Protocol: Document 01/05/18 12:59 [facility] (Rec: 01/05/18 14:27 [facility] [id number]) Out-Patient Physical Therapy Visit Information Visit Information Visit Type Treatment Note Visit Start Time 12:15 Visit Stop Time 13:10 Total Visit Minutes 55 Number of BEER COIL CLEANER Visits 0 PT-OP-C Subjective Start: 11/11/17 12:01 Freq: Status: Active Protocol: Document 01/05/18 12:59 [facility] (Rec: 01/05/18 14:27 [facility] [id number]) OP-PT Subjective Patient Comments Patient Comments No change. PT-OP-J Posture/Palpation/Skin Start: 11/11/17 12:01 Freq: Status: Active Protocol: Document 11/26/17 13:00 [facility] (Rec: 11/26/17 14:54 [facility] [id number]) Posture Evaluation Comments Posture Comments sitting and standing posture- mild fwd shoulders & mod fwd head Palpation Assessment Location One Palpation Location jaw Palpation Findings Soft Tissue Tightness Tenderness Trigger Point Palpation Details R>L masseter, temporalis, digastric, pterygoid PT-OP-K Range of Motion Start: 11/11/17 12:01 Freq: Status: Active Protocol: Document 11/26/17 13:00 [facility] (Rec: 11/26/17 14:54 [facility] [id number]) Cervical Spine Range of Motion Cervical Spine Active Degrees Testing Position Sitting Flexion 60 Extension 65 Rotation Left 80 Rotation Right 73 Lateral Flexion Left 45 Lateral Flexion Right 45 Comments dizziness with looking up TMJ Range of Motion Jaw Openning Jaw Openning (mm) 3.1 cm Jaw Deviation Deviation Left (mm) 1 cm Deviation Right (mm) 1 cm PT-OP-M Strength Start: 11/11/17 12:01 Freq: Status: Active Protocol: Document 11/26/17 13:00 [facility] (Rec: 11/26/17 14:54 [facility] [id number]) Shoulder Strength Shoulder Manual Muscle Testing Right Reason Not Measured WFL Comments tested Left Reason Not Measured WFL Comments tested PT-OP-Q Treatments Start: 11/11/17 12:01 Freq: Status: Active Protocol: Document 01/05/18 12:59 [facility] (Rec: 01/05/18 14:27 [facility] [id number]) Manual Therapy Treatment Soft Tissue Mobilization 3 Body Location Along jaw post & upper cervical region Mobilization Type Rolling Intensity/Depth Moderate Body Position Supine 2 Body Location joint capsule/ptyergoid Mobilization Type Sustained Pressure Intensity/Depth Moderate Body Position Supine 1 Body Location Temporalis, masseter, digastric Mobilization Type Rolling Sustained Pressure Intensity/Depth Moderate Body Position Supine Joint Mobilizations 1 Joint TMJ Direction AP & distraction Grade II Body Position Supine Self-Care/Home Management Treatment Education Other Education Discussed importance of following up with MD re: trigger point injections. Discussed possibility for counseling to help with dec clenching response. Discuss with MD & foxpro developer re: sleeping. PT-OP-R Modalities Start: 11/11/17 12:01 Freq: Status: Active Protocol: Document 01/05/18 12:59 [facility] (Rec: 01/05/18 14:27 [facility] [id number]) Hot Pack/Cold Pack Treatment Hot Pack Location Cervical & jaw Patient Position Hooklying Treatment Duration (minutes) 15 PT-OP-T Assessment and Plan Start: 11/11/17 12:01 Freq: Status: Active Protocol: Document 01/05/18 12:59 [facility] (Rec: 01/05/18 14:27 [facility] [id number]) Physical Therapy Assessment Assessment Summary Assessment Pt had improvement in soft tissue mobility & jaw opening with rx. She cont to require edu re: resting position and how to maintain neutral position of jaw during other activities. Physical Therapy Plan Frequency and Duration Frequency of Treatment 1x/Week Duration of Treatment 2 months Plan of Care Start Date 11/26/17 Plan of Care End Date 01/26/18 Therapeutic Interventions Therapeutic Interventions Home Exercise Program Joint Mobilizations Manual Therapy Patient/Caregiver Education Self-Care/Home Management Soft Tissue Mobilization Taping Therapeutic Exercises Modalities Cold Pack/Ice Massage Electric Stimulation Hot Packs Traction- Mechanical Next Visit Focus/Plan Next Note Type Treatment Note Next Visit Plan Cont to work on jaw mobility
--- NOTE | 2018-01-21 13:14 | PT.OTN ---
Current Diagnoses Unspecified temporomandibular joint disorder, unspecified side (01/21/18) Cervicalgia (01/21/18) Abnormal posture (01/21/18) Headache (01/21/18) Weakness (01/21/18) Physical Therapy Treatment Note PT-OP-A Visit Information Start: 11/11/17 12:01 Freq: Status: Active Protocol: Document 01/21/18 12:16 [facility] (Rec: 01/21/18 13:13 [facility] [id number]) Out-Patient Physical Therapy Visit Information Visit Information Visit Type Treatment Note Visit Start Time 12:25 Visit Stop Time 13:15 Total Visit Minutes 50 Number of LIVESTOCK FARMWORKER Visits 0 PT-OP-C Subjective Start: 11/11/17 12:01 Freq: Status: Active Protocol: Document 01/21/18 12:16 [facility] (Rec: 01/21/18 13:13 [facility] [id number]) OP-PT Subjective Patient Comments Patient Comments Sees Dr Mcmullen on Wed and Dr Bai Feb 18. Unsure about injection d/t unable to get ahold of office PT-OP-J Posture/Palpation/Skin Start: 11/11/17 12:01 Freq: Status: Active Protocol: Document 11/26/17 13:00 [facility] (Rec: 11/26/17 14:54 [facility] [id number]) Posture Evaluation Comments Posture Comments sitting and standing posture- mild fwd shoulders & mod fwd head Palpation Assessment Location One Palpation Location jaw Palpation Findings Soft Tissue Tightness Tenderness Trigger Point Palpation Details R>L masseter, temporalis, digastric, pterygoid PT-OP-K Range of Motion Start: 11/11/17 12:01 Freq: Status: Active Protocol: Document 01/21/18 12:16 [facility] (Rec: 01/21/18 13:13 [facility] [id number]) TMJ Range of Motion Jaw Openning Jaw Openning (mm) 2.5 cm Jaw Deviation Deviation Left (mm) 1 cm Deviation Right (mm) 1 cm PT-OP-M Strength Start: 11/11/17 12:01 Freq: Status: Active Protocol: Document 11/26/17 13:00 [facility] (Rec: 11/26/17 14:54 [facility] [id number]) Shoulder Strength Shoulder Manual Muscle Testing Right Reason Not Measured WFL Comments tested Left Reason Not Measured WFL Comments tested PT-OP-Q Treatments Start: 11/11/17 12:01 Freq: Status: Active Protocol: Document 01/21/18 12:16 [facility] (Rec: 01/21/18 13:13 [facility] [id number]) Manual Therapy Treatment Soft Tissue Mobilization 4 Body Location cranial fascae Mobilization Type Myofascial Release Comments FM w/jaw open/close 3 Body Location Along jaw post & upper cervical region Mobilization Type Rolling Intensity/Depth Moderate Body Position Supine 2 Body Location joint capsule/ptyergoid Mobilization Type Sustained Pressure Intensity/Depth Moderate Body Position Supine 1 Body Location Temporalis, masseter, digastric Mobilization Type Rolling Sustained Pressure Intensity/Depth Moderate Body Position Supine Joint Mobilizations 1 Joint TMJ Direction AP & distraction Grade II Body Position Supine PT-OP-R Modalities Start: 11/11/17 12:01 Freq: Status: Active Protocol: Document 01/21/18 12:16 [facility] (Rec: 01/21/18 13:13 [facility] [id number]) Hot Pack/Cold Pack Treatment Hot Pack Location Cervical & jaw Patient Position Hooklying Treatment Duration (minutes) 15 PT-OP-T Assessment and Plan Start: 11/11/17 12:01 Freq: Status: Active Protocol: Document 01/21/18 12:16 [facility] (Rec: 01/21/18 13:13 [facility] [id number]) Physical Therapy Assessment Impairments Impairments Pain Posture ROM Soft Tissue Mobility Strength Goals Four Impairment anterior posture iwth fwd head & shoulders Short Term Goal (STG) Good posture without cueing STG Duration by 02/20/18 Three Impairment TMJ ROM Senior Living Goal (LTG) open to 45 mm to allow pt to eat all food LTG Duration 03/23/18 Two Impairment Am pain, worse in evening, cannot each cruchy food, pops w/yawn Livestock Farmworker Goal (LTG) Able to eat all textures without pain LTG Duration 03/23/18 One Impairment pain Livestock Farmworker Goal (LTG) dec pain in TMJ to 1/10 at end of day. LTG Duration 03/23/18 Assessment Summary Assessment Improvement of jaw opening to 32 mm after manual rx. Pt encouraged to cont HEP. She cont to have R massetter significant tightness. She would likely benefit from trigger point injection recommended by d/t difficulty with releasing this mm with STM. Physical Therapy Plan Frequency and Duration Frequency of Treatment 1x/Week Duration of Treatment 2 months Plan of Care Start Date 01/21/18 Plan of Care End Date 03/24/18 Therapeutic Interventions Therapeutic Interventions Home Exercise Program Joint Mobilizations Manual Therapy Patient/Caregiver Education Self-Care/Home Management Soft Tissue Mobilization Taping Therapeutic Exercises Modalities Cold Pack/Ice Massage Electric Stimulation Hot Packs Traction- Mechanical Next Visit Focus/Plan Next Note Type Treatment Note Next Visit Plan Cont to work on jaw mobility
--- NOTE | 2018-01-21 13:14 | PT.OPPOC ---
Current Diagnoses Unspecified temporomandibular joint disorder, unspecified side (01/21/18) Cervicalgia (01/21/18) Abnormal posture (01/21/18) Headache (01/21/18) Weakness (01/21/18) Provider Visit Care Team Role Provider Type Roseanna Joshi MD Primary Care Provider Physician Specialty: Internal Medicine Address: [address] [place] [address], [phone] Email: Lisandra Madrigal ND Family Provider Non-Staff Specialty: Naturopathy Address: [address] [place] [address], [phone] Email: Eliceo Mcmullen DO Attending Provider Non-Staff Specialty: Neurology Address: [address] [place] [address], [phone] Email: Plan Of Care PT-OP-T Assessment and Plan Start: 11/11/17 12:01 Freq: Status: Active Protocol: Document 01/21/18 12:16 [facility] (Rec: 01/21/18 13:13 [facility] [id number]) Physical Therapy Assessment Impairments Impairments Pain Posture ROM Soft Tissue Mobility Strength Goals Four Impairment anterior posture iwth fwd head & shoulders Short Term Goal (STG) Good posture without cueing STG Duration by 02/20/18 Three Impairment TMJ ROM Direct Entry Midwife Goal (LTG) open to 45 mm to allow pt to eat all food LTG Duration 03/23/18 Two Impairment Am pain, worse in evening, cannot each cruchy food, pops w/yawn Direct Entry Midwife Goal (LTG) Able to eat all textures without pain LTG Duration 03/23/18 One Impairment pain Direct Entry Midwife Goal (LTG) dec pain in TMJ to 1/10 at end of day. LTG Duration 03/23/18 Assessment Summary Assessment Improvement of jaw opening to 32 mm after manual rx. Pt encouraged to cont HEP. She cont to have R massetter significant tightness. She would likely benefit from trigger point injection recommended by d/t difficulty with releasing this mm with STM. Physical Therapy Plan Frequency and Duration Frequency of Treatment 1x/Week Duration of Treatment 2 months Plan of Care Start Date 01/21/18 Plan of Care End Date 03/24/18 Therapeutic Interventions Therapeutic Interventions Home Exercise Program Joint Mobilizations Manual Therapy Patient/Caregiver Education Self-Care/Home Management Soft Tissue Mobilization Taping Therapeutic Exercises Modalities Cold Pack/Ice Massage Electric Stimulation Hot Packs Traction- Mechanical Next Visit Focus/Plan Next Note Type Treatment Note Next Visit Plan Cont to work on jaw mobility Plan of Care Dates Plan of Care Start Date 01/21/18 Plan of Care End Date 03/24/18 Please Sign and Return: I have reviewed this Plan of Care and certify that the skilled therapy services above are required to meet the patient?s needs. Physician Signature Date Printed Name and Credentials Clinical Instructor Signature Printed Name and Credentials
--- NOTE | 2018-01-28 16:27 | PT.OTN ---
Current Diagnoses Unspecified temporomandibular joint disorder, unspecified side (01/28/18) Cervicalgia (01/28/18) Abnormal posture (01/28/18) Headache (01/28/18) Weakness (01/28/18) Physical Therapy Treatment Note PT-OP-A Visit Information Start: 11/11/17 12:01 Freq: Status: Active Protocol: Document 01/28/18 16:17 [facility] (Rec: 01/28/18 16:27 [facility] [id number]) Out-Patient Physical Therapy Visit Information Visit Information Visit Type Treatment Note Visit Start Time 12:15 Visit Stop Time 13:10 Total Visit Minutes 55 Number of ADJUNCT PROFESSOR OF VOICE Visits 0 PT-OP-C Subjective Start: 11/11/17 12:01 Freq: Status: Active Protocol: Document 01/28/18 16:17 [facility] (Rec: 01/28/18 16:27 [facility] [id number]) OP-PT Subjective Patient Comments Patient Comments Reports Dr Mcmullen recommended she sees an oral surgeon. Reports he was not concerned about cervical region. PT-OP-J Posture/Palpation/Skin Start: 11/11/17 12:01 Freq: Status: Active Protocol: Document 11/26/17 13:00 [facility] (Rec: 11/26/17 14:54 [facility] [id number]) Posture Evaluation Comments Posture Comments sitting and standing posture- mild fwd shoulders & mod fwd head Palpation Assessment Location One Palpation Location jaw Palpation Findings Soft Tissue Tightness Tenderness Trigger Point Palpation Details R>L masseter, temporalis, digastric, pterygoid PT-OP-K Range of Motion Start: 11/11/17 12:01 Freq: Status: Active Protocol: Document 01/21/18 12:16 [facility] (Rec: 01/21/18 13:13 [facility] [id number]) TMJ Range of Motion Jaw Openning Jaw Openning (mm) 2.5 cm Jaw Deviation Deviation Left (mm) 1 cm Deviation Right (mm) 1 cm PT-OP-M Strength Start: 11/11/17 12:01 Freq: Status: Active Protocol: Document 11/26/17 13:00 [facility] (Rec: 11/26/17 14:54 [facility] [id number]) Shoulder Strength Shoulder Manual Muscle Testing Right Reason Not Measured WFL Comments tested Left Reason Not Measured WFL Comments tested PT-OP-Q Treatments Start: 11/11/17 12:01 Freq: Status: Active Protocol: Document 01/28/18 16:17 [facility] (Rec: 01/28/18 16:27 [facility] [id number]) Manual Therapy Treatment Soft Tissue Mobilization 5 Body Location ant cervical fascae & scar tissue Mobilization Type Myofascial Release Intensity/Depth Superficial Comments FM w/jaw open/close 3 Body Location Along jaw post & upper cervical region Mobilization Type Rolling Intensity/Depth Moderate Body Position Supine 2 Body Location joint capsule/ptyergoid Mobilization Type Sustained Pressure Intensity/Depth Moderate Body Position Supine 1 Body Location Temporalis, masseter, digastric Mobilization Type Rolling Sustained Pressure Intensity/Depth Moderate Body Position Supine Joint Mobilizations 1 Joint TMJ Direction AP & distraction Grade II Body Position Supine PT-OP-R Modalities Start: 11/11/17 12:01 Freq: Status: Active Protocol: Document 01/28/18 16:16 [facility] (Rec: 01/28/18 16:27 [facility] [id number]) Hot Pack/Cold Pack Treatment Cold Pack Location cervical into jaw Patient Position Hooklying Treatment Duration (minutes) 10 PT-OP-T Assessment and Plan Start: 11/11/17 12:01 Freq: Status: Active Protocol: Document 01/28/18 16:17 [facility] (Rec: 01/28/18 16:27 [facility] [id number]) Physical Therapy Assessment Goals Four Impairment anterior posture iwth fwd head & shoulders Short Term Goal (STG) Good posture without cueing STG Duration by 02/20/18 Three Impairment TMJ ROM Ent Physician Goal (LTG) open to 45 mm to allow pt to eat all food LTG Duration 03/23/18 Two Impairment Am pain, worse in evening, cannot each cruchy food, pops w/yawn Penitentiary Goal (LTG) Able to eat all textures without pain LTG Duration 03/23/18 One Impairment pain Penitentiary Goal (LTG) dec pain in TMJ to 1/10 at end of day. LTG Duration 03/23/18 Assessment Summary Assessment Improved jaw opening from 2.5 finger to about 3 fingers with treatment. Pt cont to have fascial tension from cervical scar tissue. Physical Therapy Plan Frequency and Duration Frequency of Treatment 1x/Week Duration of Treatment 2 months Plan of Care Start Date 01/21/18 Plan of Care End Date 03/24/18 Next Visit Focus/Plan Next Note Type Treatment Note Next Visit Plan Cont to work on jaw mobility & fascial mobility around jaw
--- NOTE | 2018-02-08 14:27 | PT.OTN ---
Current Diagnoses Unspecified temporomandibular joint disorder, unspecified side (02/08/18) Cervicalgia (02/08/18) Abnormal posture (02/08/18) Headache (02/08/18) Weakness (02/08/18) Physical Therapy Treatment Note PT-OP-A Visit Information Start: 11/11/17 12:01 Freq: Status: Active Protocol: Document 02/08/18 13:01 [facility] (Rec: 02/08/18 14:27 [facility] [id number]) Out-Patient Physical Therapy Visit Information Visit Information Visit Type Discharge Summary Visit Start Time 13:00 Visit Stop Time 13:55 Total Visit Minutes 55 Number of GRAIN UNLOADER Visits 0 PT-OP-C Subjective Start: 11/11/17 12:01 Freq: Status: Active Protocol: Document 02/08/18 13:01 [facility] (Rec: 02/08/18 14:27 [facility] [id number]) OP-PT Subjective Patient Comments Patient Comments Reports she had some relief after last session. Patient Questionnaires Neck Disability Index NDI Score 1/50 PT-OP-J Posture/Palpation/Skin Start: 11/11/17 12:01 Freq: Status: Active Protocol: Document 11/26/17 13:00 [facility] (Rec: 11/26/17 14:54 [facility] [id number]) Posture Evaluation Comments Posture Comments sitting and standing posture- mild fwd shoulders & mod fwd head Palpation Assessment Location One Palpation Location jaw Palpation Findings Soft Tissue Tightness Tenderness Trigger Point Palpation Details R>L masseter, temporalis, digastric, pterygoid PT-OP-K Range of Motion Start: 11/11/17 12:01 Freq: Status: Active Protocol: Document 02/08/18 13:01 [facility] (Rec: 02/08/18 14:27 [facility] [id number]) TMJ Range of Motion Jaw Openning Jaw Openning (mm) 3.3 cm PT-OP-M Strength Start: 11/11/17 12:01 Freq: Status: Active Protocol: Document 11/26/17 13:00 [facility] (Rec: 11/26/17 14:54 [facility] [id number]) Shoulder Strength Shoulder Manual Muscle Testing Right Reason Not Measured WFL Comments tested Left Reason Not Measured WFL Comments tested PT-OP-Q Treatments Start: 11/11/17 12:01 Freq: Status: Active Protocol: Document 02/08/18 13:01 [facility] (Rec: 02/08/18 14:27 [facility] [id number]) Manual Therapy Treatment Soft Tissue Mobilization 5 Body Location ant cervical fascae & scar tissue Mobilization Type Myofascial Release Intensity/Depth Superficial Comments FM w/jaw open/close 4 Body Location cranial fascae Mobilization Type Myofascial Release Comments FM w/jaw open/close 3 Body Location Along jaw post & upper cervical region Mobilization Type Rolling Intensity/Depth Moderate Body Position Supine 2 Body Location joint capsule/ptyergoid Mobilization Type Sustained Pressure Intensity/Depth Moderate Body Position Supine 1 Body Location Temporalis, masseter, digastric Mobilization Type Rolling Sustained Pressure Intensity/Depth Moderate Body Position Supine Joint Mobilizations 1 Joint TMJ Direction AP & distraction Grade II Body Position Supine PT-OP-R Modalities Start: 11/11/17 12:01 Freq: Status: Active Protocol: Document 02/08/18 13:01 [facility] (Rec: 02/08/18 14:27 [facility] [id number]) Hot Pack/Cold Pack Treatment Hot Pack Location Cervical & jaw Patient Position Hooklying Treatment Duration (minutes) 15 PT-OP-T Assessment and Plan Start: 11/11/17 12:01 Freq: Status: Active Protocol: Document 02/08/18 13:01 [facility] (Rec: 02/08/18 14:27 [facility] [id number]) Physical Therapy Assessment Goals Four Impairment anterior posture iwth fwd head & shoulders Short Term Goal (STG) Good posture without cueing STG Duration by 02/20/18-improved Three Impairment TMJ ROM Kiln Tester Goal (LTG) open to 45 mm to allow pt to eat all food LTG Duration 03/23/18-slight improvement Two Impairment Am pain, worse in evening, cannot each cruchy food, pops w/yawn Alf Goal (LTG) Able to eat all textures without pain LTG Duration 03/23/18 One Impairment pain Alf Goal (LTG) dec pain in TMJ to 1/10 at end of day. LTG Duration 03/23/18 Assessment Summary Assessment Improved jaw opening today to 3.3 cm. Pt cont to have significant tightness of jaw mm. Physical Therapy Plan Discharge Physical Therapy Discharge Reasons Plateau in Progress Discharge Comments Pt to cont HEP until trigger point injection.
--- NOTE | 2018-02-08 14:27 | PT.OPDS ---
Current Diagnoses Unspecified temporomandibular joint disorder, unspecified side (02/08/18) Cervicalgia (02/08/18) Abnormal posture (02/08/18) Headache (02/08/18) Weakness (02/08/18) Provider Visit Care Team Role Provider Type Roseanna Joshi MD Primary Care Provider Physician Specialty: Internal Medicine Address: [address] [place] [address], [phone] Email: Lisandra Madrigal ND Family Provider Non-Staff Specialty: Naturopathy Address: [address] [place] [address], [phone] Email: Eliceo Mcmullen DO Attending Provider Non-Staff Specialty: Neurology Address: [address] [place] [address], [phone] Email: Discharge Summary PT-OP-C Subjective Start: 11/11/17 12:01 Freq: Status: Active Protocol: Document 02/08/18 13:01 [facility] (Rec: 02/08/18 14:27 [facility] [id number]) OP-PT Subjective Patient Comments Patient Comments Reports she had some relief after last session. Patient Questionnaires Neck Disability Index NDI Score 1/50 PT-OP-J Posture/Palpation/Skin Start: 11/11/17 12:01 Freq: Status: Active Protocol: Document 11/26/17 13:00 [facility] (Rec: 11/26/17 14:54 [facility] [id number]) Posture Evaluation Comments Posture Comments sitting and standing posture- mild fwd shoulders & mod fwd head Palpation Assessment Location One Palpation Location jaw Palpation Findings Soft Tissue Tightness Tenderness Trigger Point Palpation Details R>L masseter, temporalis, digastric, pterygoid PT-OP-K Range of Motion Start: 11/11/17 12:01 Freq: Status: Active Protocol: Document 02/08/18 13:01 [facility] (Rec: 02/08/18 14:27 [facility] [id number]) TMJ Range of Motion Jaw Openning Jaw Openning (mm) 3.3 cm PT-OP-M Strength Start: 11/11/17 12:01 Freq: Status: Active Protocol: Document 11/26/17 13:00 [facility] (Rec: 11/26/17 14:54 [facility] [id number]) Shoulder Strength Shoulder Manual Muscle Testing Right Reason Not Measured WFL Comments tested Left Reason Not Measured WFL Comments tested PT-OP-T Assessment and Plan Start: 11/11/17 12:01 Freq: Status: Active Protocol: Document 02/08/18 13:01 [facility] (Rec: 02/08/18 14:27 [facility] [id number]) Physical Therapy Assessment Goals Four Impairment anterior posture iwth fwd head & shoulders Short Term Goal (STG) Good posture without cueing STG Duration by 02/20/18-improved Three Impairment TMJ ROM Concrete Mixer Truck Driver Goal (LTG) open to 45 mm to allow pt to eat all food LTG Duration 03/23/18-slight improvement Two Impairment Am pain, worse in evening, cannot each cruchy food, pops w/yawn Usp Goal (LTG) Able to eat all textures without pain LTG Duration 03/23/18 One Impairment pain Concrete Mixer Truck Driver Goal (LTG) dec pain in TMJ to 1/10 at end of day. LTG Duration 03/23/18 Assessment Summary Assessment Improved jaw opening today to 3.3 cm. Pt cont to have significant tightness of jaw mm. Physical Therapy Plan Discharge Physical Therapy Discharge Reasons Plateau in Progress Discharge Comments Pt to cont HEP until trigger point injection.
== END ==
LOC: PHYS 11-26 12:56
PROVIDERS: Family Provider Naturopath; PCP Internal Medicine; Visit Provider Neurological Surgery
DX: M26.609 Unspecified temporomandibular joint disorder, unspecified side (principal); R53.1 Weakness; M54.2 Cervicalgia; R51 Headache; R29.3 Abnormal posture
CPT/HCPCS: 97010; 97110; 97140; 97535

== ENCOUNTER → 2019-05-29 15:39 | Outpatient (RCR) | payer BC, SELFPAY ==
--- NOTE | 2017-12-01 16:20 | PT.OTN ---
Physical Therapy Treatment Note PT-OP-A Visit Information Start: 12/01/17 12:59 Freq: Status: Active Protocol: Document 12/01/17 13:11 AMB (Rec: 12/01/17 13:15 AMB [id number]) Out-Patient Physical Therapy Visit Information Visit Information Visit Type Treatment Note Visit Start Time 13:15 Visit Stop Time 13:45 Total Visit Minutes 30 Visit Number 8 Evaluation Information Evaluation Date 06/16/18 PT-OP-C Subjective Start: 12/01/17 12:59 Freq: Status: Active Protocol: Document 12/01/17 13:15 AMB (Rec: 12/01/17 13:28 AMB [id number]) OP-PT Subjective Patient Comments Patient Comments Pt feels that symptoms are worse around her period. Seeing Dr. Mcarthur sometime in December. PT-OP-Q Treatments Start: 12/01/17 12:59 Freq: Status: Active Protocol: Document 12/01/17 13:00 AMB (Rec: 12/01/17 16:20 AMB [id number]) Neuro Re-Education Treatment Other Activities pelvic floor strengthening Details with sEMG Comments quick flicks and long holds PT-OP-T Assessment and Plan Start: 12/01/17 12:59 Freq: Status: Active Protocol: Document 12/01/17 13:00 AMB (Rec: 12/01/17 16:20 AMB [id number]) Physical Therapy Assessment Assessment Summary Assessment Reframed when and how pt is doing HEP. Better strength today. Stress incontinence sx are improving, but frequency and urgency are worsening. Physical Therapy Plan Next Visit Focus/Plan Next Visit Plan Try standing pelvic floor strengthening. Please Sign and Return: I have reviewed this Plan of Care and certify that the skilled therapy services above are required to meet the patient???s needs. Physician Signature Date Printed Name and Credentials Clinical Instructor Signature Printed Name and Credentials
--- NOTE | 2017-12-27 15:24 | PT.OTN ---
Current Diagnoses Stress incontinence (female) (male) (12/27/17) Physical Therapy Treatment Note PT-OP-A Visit Information Start: 12/01/17 12:59 Freq: Status: Active Protocol: Document 12/27/17 13:00 AMB (Rec: 12/27/17 15:24 AMB [email or web address]) Out-Patient Physical Therapy Visit Information Visit Information Visit Type Discharge Summary Visit Start Time 13:00 Visit Stop Time 13:45 Total Visit Minutes 45 Visit Number 9 Evaluation Information Evaluation Date 06/16/18 PT-OP-C Subjective Start: 12/01/17 12:59 Freq: Status: Active Protocol: Document 12/27/17 13:00 AMB (Rec: 12/27/17 15:24 AMB [email or web address]) OP-PT Subjective Patient Comments Patient Comments Pt saw Dr. Mcarthur who is going to order urodynamics testing. PT-OP-I Pelvic Floor Start: 12/01/17 12:59 Freq: Status: Active Protocol: Document 12/27/17 13:00 AMB (Rec: 12/27/17 15:24 AMB [id number]) Pelvic Floor Assessment Urine Urinary Symptoms Urge Sensation Leakage Size Small Leakage Cause Cough Exercise Lifting Sneeze Urge Voiding Frequency 1-2 hours Urine Pad Type Panty Liner Pelvic Clock Pelvic Clock Other Pt with difficulty engaging pelvic floor when she is tired . Prolapse Prolapse Comments None baseline, but with bearing down anterior wall bulges mildly SEMG (uV) Baseline 3.5 Quick Contraction 8 Contraction Ability Voluntary Contraction Weak PT-OP-Q Treatments Start: 12/01/17 12:59 Freq: Status: Active Protocol: Document 12/27/17 13:00 AMB (Rec: 12/27/17 15:24 AMB [id number]) Neuro Re-Education Treatment Other Activities pelvic floor strengthening Details with sEMG Comments quick flicks and long holds Self-Care/Home Management Treatment Education Other Education Diet, urge reduction techniques PT-OP-T Assessment and Plan Start: 12/01/17 12:59 Freq: Status: Active Protocol: Document 12/27/17 13:00 AMB (Rec: 12/27/17 15:24 AMB [id number]) Physical Therapy Assessment Goals Two Impairment Stress incontinence Short Term Goal (STG) The patient will be able to cough without leaking. PARTIALLY MET-small coughs successful, large coughing fits difficult One Impairment Incontinence Short Term Goal (STG) The patient will feel complete emptying using self care techniques. NOT MET STG Duration 4 weeks Tuber Operator Goal (LTG) The patient will sleep through th enight without having to void urine. NOT MET LTG Duration 8 weeks Assessment Summary Assessment Pt's stress incontinence symptoms have improved, but she continues to have frequency and urgency that really have not improved with PT. Follow up with MD and then she can return if needed. Physical Therapy Plan Discharge Physical Therapy Discharge Reasons Plateau in Progress Discharge Comments Pt is going to follow up with Dr. Mcarthur and urodynamics study to see if she needs further PT at that point.
== END ==
LOC: PHYS 12-01 13:06
PROVIDERS: Family Provider Naturopath; PCP Internal Medicine; Visit Provider Internal Medicine
DX: N39.3 Stress incontinence (female) (male) (principal)
CPT/HCPCS: 97112; 97535

== ENCOUNTER 2019-05-30 15:00 | Outpatient (RCR) | payer BC, SELFPAY ==
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
--- NOTE | 2019-07-25 12:46 | PT-OP ANOTE ---
Per telconversation the pt reports just getting back from a 3 week trip and she feels she is doing well. She understands that if she needs more therapy for her pelvic pain then she will request a referral from her MD. Pt is being discharged from physical therapy.
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
== END 2019-08-03 12:58 ==
LOC: PHYS 15:00
PROVIDERS: PCP Internal Medicine; Visit Provider Internal Medicine
DX: R10.2 Pelvic and perineal pain (principal); M25.552 Pain in left hip
CPT/HCPCS: 97010; 97110; 97140; 97162; 97535

== ENCOUNTER → 2019-09-01 09:09 | Outpatient (CLI) | payer BC, SELFPAY ==
[2019-09-01 11:01] LABS: BUN Creatinine Ratio 34.3 (6-22); Blood Urea Nitrogen 24 mg/dL (7-17); Calcium 9.5 mg/dL (8.4-10.2); Carbon Dioxide 31 mmol/L (22-32); Chloride 105 mmol/L (98-107); Cholesterol 183 mg/dL (140-199); Estimated Glomerular Filt Rate > 60.0 mL/min (>60); Glucose 97 mg/dL (70-100); HDL Cholesterol 51 mg/dL (40-60); HEMOLYSIS < 15 (0-50); LDL Cholesterol Calculated 113 mg/dL (<100); Potassium 4.4 mmol/L (3.4-5.1); Sodium 141 mmol/L (137-145); Triglycerides 95 mg/dL (35-150)
== END ==
PROVIDERS: PCP Internal Medicine; Referring Provider Internal Medicine; Visit Provider Internal Medicine
DX: Z00.00 Encounter for general adult medical examination without abnormal findings (principal)
CPT/HCPCS: 36415; 80048; 80061

== ENCOUNTER → 2019-11-03 12:09 | Outpatient (CLI) | payer BC, SELFPAY ==
[2019-11-03 15:49] LABS: Influenza A - CEPHEID Flu A NEGATIVE (NEGATIVE); Influenza B - CEPHEID Flu B NEGATIVE (NEGATIVE)
[2019-11-06 13:10] LABS: COVID19 Sendout Not Detected (Not Detected)
== END ==
PROVIDERS: PCP Internal Medicine; Visit Provider Family Medicine
DX: R05 Cough (principal); R06.02 Shortness of breath; R50.9 Fever, unspecified
CPT/HCPCS: 87502; 87635

== ENCOUNTER → 2019-11-07 14:25 | Outpatient (CLI) | payer BC, SELFPAY ==
--- NOTE | 2019-11-07 | DI.RAD.S_ITS ---
PROCEDURE: XR CHEST 2V INDICATIONS: COUGH TECHNIQUE: 2 views of the chest were acquired. COMPARISON: [facility], CR, XR CHEST 2V, 09/30/2018, 9:25. FINDINGS: Surgical changes and devices: Cervical fixation plates are noted. Lungs and pleura: Lungs are clear. No pleural effusions or pneumothorax. Mediastinum: Mediastinal contours are normal. Heart size is normal. Bones and chest wall: No suspicious bony abnormalities. Soft tissues appear unremarkable. IMPRESSION: No acute pulmonary process. Dictated by: Latasha Leonard M.D. on 11/07/2019 at 15:02 Approved by: Latasha Leonard M.D. on 11/07/2019 at 15:02
== END ==
PROVIDERS: PCP Internal Medicine; Referring Provider Internal Medicine; Visit Provider Internal Medicine
DX: R05 Cough (principal)
CPT/HCPCS: 71046

== ENCOUNTER → 2019-12-13 14:43 | Outpatient (CLI) | payer BC, SELFPAY ==
[2019-12-14 16:14] LABS: SARS CoV19 IgG Negative (Negative)
== END ==
PROVIDERS: PCP Internal Medicine; Referring Provider Internal Medicine; Visit Provider Internal Medicine
DX: R05 Cough (principal)
CPT/HCPCS: 36415; 86769

== ENCOUNTER → 2019-12-25 10:23 | Outpatient (CLI) | payer BC, SELFPAY ==
--- NOTE | 2019-12-25 10:31 | DI.RAD.S_ITS ---
PROCEDURE: XR CERVICAL SPINE 2V OR 3V INDICATIONS: POST SURGERY TECHNIQUE: 3 view(s) of the cervical spine were acquired. COMPARISON: None. FINDINGS: Bones: No fractures or dislocations to the C7 level. The lateral masses of C1 appear intact on the odontoid view. No suspicious bony lesions. Straightening of the normal lordotic curvature. Status post placement of prosthetic discs at C5-C6 and C6-7. There is expected alignment. Multilevel degenerative endplate sclerosis and spurring. Diffuse facet arthropathy. No evidence of abnormal motion with dynamic flexion and extension lateral views. Soft tissues: No prevertebral soft tissue swelling. IMPRESSION: Expected postoperative alignment. No evidence of abnormal motion with dynamic flexion and extension lateral views. Dictated by: Nathan Harris M.D. on 12/25/2019 at 13:28 Approved by: Nathan Harris M.D. on 12/25/2019 at 14:09
[2019-12-25 12:01] LABS: Add Manual Diff / Slide Review NO; Basophils Absolute Auto 0 /uL (0-100); Basophils Percent Auto 0.3 % (0-2); Eosinophils Absolute Auto 200 /uL (0-450); Eosinophils Percent Auto 2.9 % (2-4); Hematocrit 40.1 % (36-46); Hemoglobin 13.7 g/dL (12.0-16.0); Lymphocytes Absolute Auto 1800 /uL (1100-4500); Lymphocytes Percent Auto 30.4 % (25-40); Mean Corpuscular HGB Conc 34.2 % (30-36); Mean Corpuscular Hemoglobin 30.2 PG (26-34); Mean Corpuscular Volume 88.1 fL (80-100); Monocytes Absolute Auto 500 /uL (0-900); Monocytes Percent Auto 7.6 % (3-14); Neutrophils Absolute Auto 3500 /uL (1500-7000); Neutrophils Percent Auto 58.8 % (50-75); Platelet Count 305 X10^3/uL (150-400); Red Blood Cell Count 4.56 X10^6/uL (4.0-5.2); Red Cell Distribution Width 13.7 % (11.6-14.8)
[2019-12-28 03:08] LABS: Immunoglobulin E 58 IU/mL (6-495)
== END ==
PROVIDERS: PCP Internal Medicine; Referring Provider Neurological Surgery; Visit Provider Allergy & Immunology
DX: J45.50 Severe persistent asthma, uncomplicated (principal); M47.12 Other spondylosis with myelopathy, cervical region
CPT/HCPCS: 36415; 72040; 82785; 85025

== ENCOUNTER → 2020-01-01 11:37 | Outpatient (CLI) | payer BC, SELFPAY ==
--- NOTE | 2020-01-01 | DI.CT.S_ITS ---
PROCEDURE: CT CHEST WO CON INDICATIONS: Cough TECHNIQUE: Noncontrast 5 mm thick sections acquired from the pulmonary apices to the posterior costophrenic angles. 1 mm lung window, 5 mm thick coronal and sagittal and 7 mm axial MIP reformats were then acquired. For radiation dose reduction, the following was used: automated exposure control, adjustment of mA and/or kV according to patient size. COMPARISON: [facility], CT, CT CHEST HIGH RESOLUTION, 10/28/2018, 9:52. FINDINGS: Image quality: Excellent. Lungs and pleura: No acute consolidation. 5 mm nodule seen within the right middle lobe image 171/30, which is grossly unchanged since 10/28/18 No pleural effusions or pneumothorax. Central and peripheral airways are patent and normal in caliber. Mediastinum: Heart size is normal. No pericardial effusion. No mediastinal adenopathy by size criteria. Thoracic aorta and central pulmonary arteries are normal in size. Esophagus is normal in caliber. No hiatal hernia. Bones and chest wall: No suspicious bony lesions. No vertebral body compression fractures. No axillary or supraclavicular adenopathy by size criteria. Thyroid gland negative. Abdomen: Visualized upper abdominal solid organs and bowel loops appear normal in the absence of contrast. IMPRESSION: No acute process identified Dictated by: Nathan Harris M.D. on 01/01/2020 at 13:51 Approved by: Nathan Harris M.D. on 01/01/2020 at 13:55
== END ==
PROVIDERS: PCP Internal Medicine; Referring Provider Internal Medicine; Visit Provider Internal Medicine
DX: R05 Cough (principal)
CPT/HCPCS: 71250

== ENCOUNTER → 2020-01-29 15:40 | Outpatient (CLI) | payer BC, SELFPAY ==
--- NOTE | 2020-01-29 16:04 | DI.ECHO.S_ITS ---
Echocardiogram Report + + :Name: CATHY NIX Study Date: 01/29/2020 Height: 66 in : :[facility] Weight: 178 lb : : Gender: Female BSA: 1.9 m2 : :: 1970 Age: 49 yrs BP: 118/68 mmHg: :Reason For Study: SHORNTESS OF BREATH : :Ordering Physician: KODY, : :ISAAC LEBLANC Performed By: Arabella Diaz : :Referring: ISAAC GATES MD : + + Interpretation Summary 1) Normal left ventricular thickness, size, wall motion, and systolic function (EF 65-70%). 2) Normal right ventricular size and function. 3) No significant valvular abnormalities. 4) Compared to the Echo done 09/29/2018, smalll pericardial effusion has resolved on this study. Procedure: A two-dimensional transthoracic echocardiogram with color flow and Doppler was performed. The study quality was technically adequate. Comparison is made with the echocardiogram of 09/29/2018. The patient was in sinus rhythm with heart rates between 85-90 bpm during the exam. Left Ventricle: The left ventricle is normal in size and wall thickness. The ejection fraction is estimated to be 65-70%. Left ventricular systolic function is normal without focal wall motion abnormalities. Diastolic parameters suggest probable normal left ventricular diastolic function and normal filling pressures. Right Ventricle: The right ventricle is normal in size and function. Atria: Both atria are normal in size. There is no Doppler evidence for an interatrial shunt. Mitral Valve: The mitral valve is normal in structure and function. There is no mitral regurgitation noted. Aortic Valve: The aortic valve is trileaflet. The aortic valve opens well. There is no aortic valve stenosis. No aortic regurgitation is present. Tricuspid Valve: The tricuspid valve is normal in structure and function. Pulmonary artery pressures cannot be estimated because of the lack of a measurable TR jet velocity but the IVC suggests a CVP of around 3 mmHg. There is a trace or physiologic amount of tricuspid regurgitation. Pulmonic Valve: The pulmonic valve is not well seen, but is grossly normal. There is no pulmonic valvular regurgitation. Great Vessels: The aortic root is normal size. The ascending aorta is normal in size. The IVC is of normal diameter and collapses greater than 50% with a sniff. This suggests a low right atrial pressure of 3 mm Hg. Pericardium/ Pleura There is no pericardial effusion. There is no pleural effusion. MMode/2D Measurements & Calculations LVIDd: 4.4 cm LVOT diam: 2.0 cm LVIDs: 2.4 cm Ao root diam: 3.1 cm FS: 44.6 % asc Aorta Diam: 2.8 cm EPSS: 0.82 cm Ao Arch Diam (Prox Trans): 2.4 cm IVSd: 0.73 cm LVPWd: 0.87 cm LV mary. diameter/BSA (cm/m^2): 2.3 LV sys. diameter/BSA (cm/m^2): 1.3 LA A2 area: 17.3 cm2 RA long axis: 4.7 cm LA A4 area: 14.2 cm2 RA area: 13.0 cm2 LA length (vol): 4.6 cm RA vol: 30.7 ml LA vol: 45.0 ml RA : 16.1 ml/m2 LA vol index: 23.7 ml/m2 IVC diam: 1.7 cm RVD1 (basal): 2.6 cm TAPSE: 2.3 cm Doppler Measurements & Calculations Ao V2 max: 152.9 cm/sec LVOT Max Gustavo: 111.5 cm/sec Ao V2 mean: 101.0 cm/sec LV V1 max P.0 mmHg Ao max P.3 mmHg LV V1 VTI: 19.0 cm Ao mean P.7 mmHg DORIAN(I,D): 2.1 cm2 Ao V2 VTI: 28.5 cm DORIAN(V,D): 2.3 cm2 sev ratio: 0.67 DORIAN indexed to BSA (cm^2/m^2): 1.1 MV E max gustavo: 75.5 cm/sec PA V2 max: 84.4 cm/sec MV A max gustavo: 62.3 cm/sec PA V2 mean: 58.4 cm/sec MV E/A: 1.2 PA mean P.5 mmHg Med Peak E' Gustavo: 9.6 cm/sec PA pr(Accel): 13.9 mmHg E/E' med: 7.8 Lat Peak E' Gustavo: 9.4 cm/sec E/E' lat: 8.0 E/e' average: 7.9 MV dec time: 0.22 sec SV(LVOT): 61.1 ml Reading Physician:06:11 PM
[2020-01-29 17:57] LABS: Rheumatoid Factor 15.8 IU/mL (<12.0)
== END ==
PROVIDERS: PCP Internal Medicine; Referring Provider Internal Medicine; Visit Provider Internal Medicine
DX: R06.02 Shortness of breath (principal); R49.0 Dysphonia; Z82.49 Family history of ischemic heart disease and other diseases of the circulatory system
CPT/HCPCS: 36415; 86430; 93306

== ENCOUNTER → 2020-02-15 11:29 | Outpatient (CLI) | payer BC, SELFPAY ==
[2020-02-15 13:49] LABS: BUN Creatinine Ratio 29.4 (6-22); Blood Urea Nitrogen 20 mg/dL (7-17); Calcium 9.6 mg/dL (8.4-10.2); Carbon Dioxide 31 mmol/L (22-32); Chloride 102 mmol/L (98-107); Estimated Glomerular Filt Rate > 60.0 mL/min (>60); Glucose 91 mg/dL (70-100); HEMOLYSIS < 15 (0-50); Potassium 4.4 mmol/L (3.4-5.1); Sodium 138 mmol/L (137-145)
== END ==
PROVIDERS: PCP Internal Medicine; Referring Provider Internal Medicine; Visit Provider Internal Medicine
DX: R73.9 Hyperglycemia, unspecified (principal)
CPT/HCPCS: 36415; 80048

== ENCOUNTER → 2020-06-19 12:46 | Outpatient (CLI) | payer BC, SELFPAY ==
--- NOTE | 2020-06-19 12:49 | DI.MRI.S_ITS ---
PROCEDURE: MR HAND RT WO/W CON INDICATIONS: Arthritis protocol TECHNIQUE: Coronal and axial T1 spin echo and T2 fast spin echo with fat saturation. Post-contrast coronal and axial T1 spin echo with fat saturation images through the right hand and wrist. COMPARISON: [facility], CR, XR HAND 3+ VIEWS BILATERAL, 05/23/2020, 14:13. FINDINGS: Image quality: Excellent. Bones and cartilage: 1 mm focus of possible enhancement seen at the base of the little finger middle phalanx on image 12/11 however this is not definitely confirmed on other pulse sequences and is nonspecific. Elsewhere, no specific marrow signal changes to suggest erosions identified. No osteitis. Synovium: No abnormal thickening or enhancing synovitis Soft tissues: No tenosynovitis is seen. IMPRESSION: Overall, no specific marrow signal changes to suggest erosions. No evidence of active synovitis Dictated by: Nathan Harris M.D. on 06/19/2020 at 14:46 Approved by: Nathan Harris M.D. on 06/19/2020 at 14:52
--- NOTE | 2020-06-19 12:49 | DI.MRI.S_ITS ---
PROCEDURE: MR HAND LT WO/W CON INDICATIONS: Arthritis protocol TECHNIQUE: Coronal and axial T1 spin echo and T2 fast spin echo with fat saturation. Post-contrast coronal and axial T1 spin echo with fat saturation images through the left hand and wrist. COMPARISON: [facility], CR, XR HAND 3+ VIEWS BILATERAL, 05/23/2020, 14:13. FINDINGS: Image quality: Excellent. Bones and cartilage: No specific marrow signal changes to suggest erosion identified. No osteitis is seen. Synovium: No definite active or enhancing synovitis is seen. Soft tissues: No tenosynovitis identified. IMPRESSION: No specific marrow signal changes to suggest erosions. No active synovitis identified. Dictated by: Nathan Harris M.D. on 06/19/2020 at 14:28 Approved by: Nathan Harris M.D. on 06/19/2020 at 14:35
== END ==
PROVIDERS: Family Provider Internal Medicine; PCP Internal Medicine; Referring Provider Internal Medicine Rheumatology; Visit Provider Internal Medicine Rheumatology
DX: M19.041 Primary osteoarthritis, right hand (principal); M19.042 Primary osteoarthritis, left hand
CPT/HCPCS: 73220; A9579

== ENCOUNTER 2020-07-09 14:30 | Outpatient (RCR) | payer BC, SELFPAY ==
--- NOTE | 2020-05-31 17:22 | ST.OPIE ---
Visit Care Team Role Provider Type Roseanna Joshi MD Attending Provider Physician Family Provider Primary Care Provider Referring Provider Specialty: Internal Medicine Address: [address] [place] [address], [address] Email: [email or web address] Speech-Language Pathology Initial Evaluation TEMPLATE REPRODUCTION TECHNICIAN Voice Resonance Evaluation Start: 05/29/20 16:48 Freq: Status: Active Protocol: Document 05/29/20 16:48 LNK (Rec: 05/29/20 17:11 LNK [id number]) Voice and Resonance Assessment Session Time Visit Start Time 14:30 Visit Stop Time 15:30 Total Visit Minutes 60 Visit Information Visit Number 1 Plan of Care Dates 05/29/20-09/26/20 Next Note Type Next Note Type Treatment Note Referral Referring Physician Dr. Roseanna Joshi, Dr. 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 Previous therapy was successful in Jamil's voice recovery. This past October 2019 , Jamil was diagnosed with a respiratory infection, which as improved mildy since that point. She continues to c/o hoarseness, vocal fatigue, dyspnea on exercise exersion with a consistent cough after talking for any length of time . Jamil is also being treated for this condition by a correctional officer chief and an corporate counselor . Videostroboscopy at the [facility] on 05/13/2020 indicated no vocal fold paresis/paralysis. There was noted significant vocal fold splinting and muscle tension obseerved when trying to hold a pitch. [facility] TEMPLATE REPRODUCTION TECHNICIAN, Holly Markham, reported that the strain was likely leading to her cough as most of jamil's symptoms occur after talking for extended time. Breath control and relaxed throat breathing therapeutic techniques were recommended along with a vocal therapy program. Occupational Status Occupation Status retired Previous Therapy Previous Speech-Language Therapy Yes: Right vocal fold paresis [id number] Oral Motor Assessment Source: [place] [employer] ([employer]). Oral-Motor Eval Completed No: Informal observation Oral-Motor Assessment WFL - Laryngeal Performance Muscle Tension Assessment Muscle Tension Assessment Jaw,Neck,Shoulders Tongue Base Tension Tongue Base Tension w/ Voicing Yes Breath Support Breath Support At Rest Thoracic,Clavicular,Anchored Breath Support Sustained Phonation Thoracic Breath Support Conversation Thoracic,Clavicular,Anchored Speaks on Room Air Yes Postural Alignment Stance Weight Forward Neck Static Shoulders Both High Voice Pitch Range Norms: Women (100-300 Hz) Men (70-250 Hz) Fundamental Frequency Norms: Women (Mean: 225 Hz; Range: 155-334 Hz) Men ( Mean: 128 Hz; Range: 85-196 Hz) Voice Pitch Excessive Variation,Pitch Breaks,Diplophonia Voice Loudness Moderately Soft/Quiet Voice Phonatory-based Quality Breathy,Harsh,Loss of Voice, Pitch Breaks,Diplophonia Resonance Oral Resonance Normal Other Observations Inadequate Breath Support, Throat Clearing Therapeutic Techniques Therapy Tactics Shifting Tone Focus,Easy Onset ,Breath Support,Postural Adjustment,Laryngeal Manipulation Findings Findings Moderate-Severe Impairment Voice/Resonance Assessment Assessment Jamil Sullivan returns for vocal therapy. She was last seen at this clinic with right vocal fold paresis, which improved significantly to successful pt discharge. According to the stroboscopy/ TEMPLATE REPRODUCTION TECHNICIAN records provided by [facility], Jamil's vocal folds appear bilaterally mobile with laryngeal splinting/fixation of the vocal folds in an abducted position (muscle tension pattern) resulting in breathy vocal quality/dysphonia. Prognosis Rehabilitation Potential Excellent - Recommendations Treatment Recommended Yes Treatment Frequency/Duration 1-2x/week Therapy Recommendations Vocal therapy targeting decreased strain and muscle tension/splinting/fixation with coordinated breath control and phonation and relaxation exercises. Relaxed throat breathing Anatomy and physiology education Relaxation/mindfulness therapeutic techniques Short Term Goals Pt will participate in education of basic anatomy and physiology of vocal fold vibration Pt will express management of vocal hygeine Pt will express comprehension of GERD management Pt will demonstrate relaxed throat breathing Pt will demonstrate forward focus and coordination of phonation and breathing Skilled Nursing Goals Pt will maintain the best vocal quality for functional communication and participation in daily activities. TEMPLATE REPRODUCTION TECHNICIAN Follow Up 1-2x/week Patient/Caregiver Education Patient/Family Education Described results of evaluation,Patient Understanding,Patient Needs More Info
--- NOTE | 2020-05-31 17:24 | ST.OPPOC ---
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 Previous therapy was successful in Ruthy's voice recovery . This past October 2019, Ruthy was diagnosed with a respiratory infection, which as improved mildly since that point. She continues to c/o hoarseness, vocal fatigue, dyspnea on exercise excursion with a consistent cough after talking for any length of time. Ruthy is also being treated for this condition by a merchandising intern and an phosphatic fertilizer supervisor. Videostroboscopy at the [facility] on 05/13/2020 indicated no vocal fold paresis/ paralysis. There was noted significant vocal fold splinting and muscle tension observed when trying to hold a pitch. [facility] EXPLOSIVE ORDNANCE MANAGER, Holly Markham, reported that the strain was likely leading to her cough as most of Ruthy's symptoms occur after talking for extended time. Breath control and relaxed throat breathing therapeutic techniques were recommended along with a vocal therapy program. Plan of Care Dates 05/29/20-09/26/20 Mcc Goals Pt will maintain the best vocal quality for functional communication and participation in daily activities. Electronically Signed by: Cynthia Jett, EZRA 05/31/20 1272 Please Sign and Return: I have reviewed this Plan of Care and certify that the skilled therapy services above are required to meet the patient?s needs. Physician Signature Date Printed Name and Credentials Clinical Instructor Signature Printed Name and Credentials
--- NOTE | 2020-06-13 15:25 | ST.OPTN ---
Visit Care Team Role Provider Type Roseanna Joshi MD Attending Provider Physician Family Provider Primary Care Provider Referring Provider Address: [address] [place] [address], [address] CORRECTIVE THERAPIST Treatment Note CORRECTIVE THERAPIST Treatment Note Start: 05/29/20 16:48 Freq: Status: Active Protocol: Document 06/13/20 14:26 LNK (Rec: 06/13/20 15:25 LNK [email or web address]) Speech Pathology Treatment Note Session Time Visit Start Time 14:30 Visit Stop Time 15:15 Total Visit Minutes 45 Visit Information Visit Number 2 Plan of Care Dates 05/29/20-09/26/20 Setting Treatment Setting Outpatient Care Visit Type Note Type Treatment Note Next Note Type Next Note Type Treatment Note General Information General Information Ruthy is a 50 year old female previously treated by this CORRECTIVE THERAPIST for 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 Previous therapy was successful in Ruthy's voice recovery. This past October 2019 , Ruthy was diagnosed with a respiratory infection, which as improved mildly since that point. She continues to c/o hoarseness, vocal fatigue, dyspnea on exercise exertion with a consistent cough after talking for any length of time . Ruthy is also being treated for this condition by a window installation subcontractor and an sweatband shaper . Videostroboscopy at the [facility] on 05/13/2020 indicated no vocal fold paresis/paralysis. There was noted significant vocal fold splinting and muscle tension observed when trying to hold a pitch. [facility] CORRECTIVE THERAPIST, Holly Markham, reported that the strain was likely leading to her cough as most of Ruthy's symptoms occur after talking for extended time. Breath control and relaxed throat breathing therapeutic techniques were recommended along with a vocal therapy program. [ E Subjective Identification Type Name,Picture Identification Reconciled With Intake Sheet Chief Complaint(s) Voice Additional Areas of Concern frequent dry cough Rehab Expectation/Goals: Patient Goals Ruthy will be able to maintain vocal quality WF Patient Knowledge/Awareness of CORRECTIVE THERAPIST Role Excellent in Treatment Objective Short Term Goals Pt will participate in education of basic anatomy and physiology of vocal fold vibration Pt will express management of vocal hygiene Pt will express comprehension of GERD management Pt will demonstrate relaxed throat breathing Pt will demonstrate forward focus and coordination of phonation and breathing Crisis Worker Goals Pt will maintain the best vocal quality for functional communication and participation in daily activities. Treatment Activities Reviewed anatomy/physiology of voicing with pictures of vocal system, neck muscles and larynx. Targeted open throat breathing/abdominal breathing with visualization of the air moving back and forth. Recommended that pt practice this as often as possible. Also targeted cough suppression, substituting a swallow or light throat clear when she has the urge to cough . Assessment Patient Response to Treatment Excellent Rehab Potential Good Impairments Identified Vocal Quality Reviewed with Patient Goals,Home Exercise Program Plan Amount of Therapy Recommended 2-3 Months Length of Session 45 Minutes Therapeutic Contents Voice Training Provided Patient/Caregiver Instruction Home Exercise Program, Questions/Concerns Therapy Recommendations Continue with Current Program
--- NOTE | 2020-06-20 16:32 | ST.OPTN ---
Visit Care Team Role Provider Type Roseanna Joshi MD Attending Provider Physician Family Provider Primary Care Provider Referring Provider Address: [address] [place] [address], [address] SPECIAL CRIMES INVESTIGATOR Treatment Note SPECIAL CRIMES INVESTIGATOR Treatment Note Start: 05/29/20 16:48 Freq: Status: Active Protocol: Document 06/20/20 16:14 LNK (Rec: 06/20/20 16:32 LNK [id number]) Speech Pathology Treatment Note Session Time Visit Start Time 14:30 Visit Stop Time 15:15 Total Visit Minutes 45 Visit Information Visit Number 3 Plan of Care Dates 05/29/20-09/26/20 Setting Treatment Setting Outpatient Care Visit Type Note Type Treatment Note Next Note Type Next Note Type Treatment Note General Information General Information Ruthy is a 50 year old female previously treated by this SPECIAL CRIMES INVESTIGATOR for 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 Previous therapy was successful in Ruthy's voice recovery. This past October 2019 , Ruthy was diagnosed with a respiratory infection, which as improved mildy since that point. She continues to c/o hoarseness, vocal fatigue, dyspnea on exercise exertion with a consistent cough after talking for any length of time . Ruthy is also being treated for this condition by a disabilities caregiver and an traveling engineer . Videostroboscopy at the [facility] on 05/13/2020 indicated no vocal fold paresis/paralysis. There was noted significant vocal fold splinting and muscle tension observed when trying to hold a pitch. [facility] SPECIAL CRIMES INVESTIGATOR, Holly Markham, reported that the strain was likely leading to her cough as most of Ruthy's symptoms occur after talking for extended time. Breath control and relaxed throat breathing therapeutic techniques were recommended along with a vocal therapy program. [ E Subjective Identification Type Name,Picture Identification Reconciled With Intake Sheet Chief Complaint(s) Voice Additional Areas of Concern frequent dry cough Rehab Expectation/Goals: Patient Goals Ruthy will be able to maintain vocal quality WF Patient Knowledge/Awareness of SPECIAL CRIMES INVESTIGATOR Role Excellent in Treatment Objective Short Term Goals Pt will participate in education of basic anatomy and physiology of vocal fold vibration Pt will express management of vocal hygiene Pt will express comprehension of GERD management Pt will demonstrate relaxed throat breathing Pt will demonstrate forward focus and coordination of phonation and breathing Premium Cancellation Clerk Goals Pt will maintain the best vocal quality for functional communication and participation in daily activities. Treatment Activities Reviewed open throat breathing /abdominal breathing with visualization of the air moving back and forth. Added forward focus/n the mask vibration using humming/or ohm to initiate voicing. Targeted feeling vibration in her face/nasal area to increase resonance and discourage excessive tension in the vocal folds. Recommended that pt practice this as often as possible. Also targeted cough suppression, substituting a swallow or light throat clear when she has the urge to cough . Assessment Patient Response to Treatment Excellent Rehab Potential Good Impairments Identified Vocal Quality Assessment of Improvement Ruthy reported that she is coughing as much as she was before trying to swallow instead of cough. She feels that this is not effective. Ruthy also reported that she had an MRI yesterday of her hands. her rheumatlogist is suspecting Rheumatoid Arthritis. Results will be available soon. Reviewed with Patient Goals,Home Exercise Program Plan Amount of Therapy Recommended 2-3 Months Length of Session 45 Minutes Therapeutic Contents Voice Training Provided Patient/Caregiver Instruction Home Exercise Program, Questions/Concerns Therapy Recommendations Continue with Current Program
--- NOTE | 2020-06-28 11:36 | ST.OPTN ---
Visit Care Team Role Provider Type Roseanna Joshi MD Attending Provider Physician Family Provider Primary Care Provider Referring Provider Address: [address] [place] [address], [address] CISCO CERTIFIED INTERNETWORK EXPERT Treatment Note CISCO CERTIFIED INTERNETWORK EXPERT Treatment Note Start: 05/29/20 16:48 Freq: Status: Active Protocol: Document 06/27/20 11:28 LNK (Rec: 06/28/20 11:36 LNK [email or web address]) Speech Pathology Treatment Note Session Time Visit Start Time 14:30 Visit Stop Time 15:30 Total Visit Minutes 60 Visit Information Visit Number 4 Plan of Care Dates 05/29/20-09/26/20 Setting Treatment Setting Outpatient Care Visit Type Note Type Treatment Note Next Note Type Next Note Type Treatment Note General Information General Information Ruthy is a 50 year old female previously treated by this CISCO CERTIFIED INTERNETWORK EXPERT for 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 Previous therapy was successful in Ruthy's voice recovery. This past October 2019 , Ruthy was diagnosed with a respiratory infection, which as improved mildly since that point. She continues to c/o hoarseness, vocal fatigue, dyspnea on exercise exersion with a consistent cough after talking for any length of time . Ruthy is also being treated for this condition by a brownfield redevelopment site manager and an magento web developer . Videostroboscopy at the [facility] on 05/13/2020 indicated no vocal fold paresis/paralysis. There was noted significant vocal fold splinting and muscle tension observed when trying to hold a pitch. [facility] CISCO CERTIFIED INTERNETWORK EXPERT, Holly Markham, reported that the strain was likely leading to her cough as most of Ruthy's symptoms occur after talking for extended time. Breath control and relaxed throat breathing therapeutic techniques were recommended along with a vocal therapy program. [ E Subjective Identification Type Name,Picture Identification Reconciled With Intake Sheet Chief Complaint(s) Voice Additional Areas of Concern frequent dry cough Rehab Expectation/Goals: Patient Goals Ruthy will be able to maintain vocal quality WF Patient Knowledge/Awareness of CISCO CERTIFIED INTERNETWORK EXPERT Role Excellent in Treatment Objective Short Term Goals *Pt will participate in education of basic anatomy and physiology of vocal fold vibration *Pt will express management of vocal hygeine *Pt will express comprehension of GERD management *Pt will demonstrate relaxed throat breathing *Pt will demonstrate forward focus and coordination of phonation and breathing Mcfp Goals Pt will maintain the best vocal quality for functional communication and participation in daily activities. Treatment Activities Reviewed open throat breathing /abdominal breathing with visualization activities. Targeted feeling vibration in her face/nasal area to increase resonance and discourage excessive tension in the vocal folds. pt was concerned as her rhumatologist had suggested she get tested for ALS. Discussed questions she needs to discuss with her MD. OME was negative for lingual muscle fasciculation. speech was negative for s/sx dysarthria Assessment Patient Response to Treatment Excellent Rehab Potential Good Impairments Identified Vocal Quality Assessment of Improvement Ruthy reported that she is coughing as much as she was before trying to swallow instead of cough. Reviewed with Patient Goals,Home Exercise Program Plan Amount of Therapy Recommended 2-3 Months Length of Session 45 Minutes Therapeutic Contents Voice Training Provided Patient/Caregiver Instruction Home Exercise Program, Questions/Concerns Therapy Recommendations Continue with Current Program
--- NOTE | 2020-07-09 15:28 | ST.OPTN ---
Visit Care Team Role Provider Type Roseanna Joshi MD Attending Provider Physician Family Provider Primary Care Provider Referring Provider Address: [address] [place] [address], [id number] SECURITY OPERATIONS MANAGER Treatment Note SECURITY OPERATIONS MANAGER Treatment Note Start: 05/29/20 16:48 Freq: Status: Active Protocol: Document 07/09/20 15:16 LNK (Rec: 07/09/20 15:28 LNK [id number]) Speech Pathology Treatment Note Session Time Visit Start Time 14:30 Visit Stop Time 15:30 Total Visit Minutes 60 Visit Information Visit Number 5 Plan of Care Dates 05/29/20-09/26/20 Setting Treatment Setting Outpatient Care Visit Type Note Type Treatment Note Next Note Type Next Note Type Treatment Note General Information General Information Ruthy is a 50 year old female previously treated by this SECURITY OPERATIONS MANAGER for 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 Previous therapy was successful in Ruthy's voice recovery. This past October 2019 , Ruthy was diagnosed with a respiratory infection, which as improved mildy since that point. She continues to c/o hoarseness, vocal fatigue, dyspnea on exercise exersion with a consistent cough after talking for any length of time . Ruthy is also being treated for this condition by a correctional facility nurse and an scientific manager . Videostroboscopy at the [facility] on 05/13/2020 indicated no vocal fold paresis/paralysis. There was noted significant vocal fold splinting and muscle tension obseerved when trying to hold a pitch. [facility] SECURITY OPERATIONS MANAGER, Holly Markham, reported that the strain was likely leading to her cough as most of ruthy's symptoms occur after talking for extended time. Breath control and relaxed throat breathing therapeutic techniques were recommended along with a vocal therapy program. [ E Subjective Identification Type Name,Picture Identification Reconciled With Intake Sheet Chief Complaint(s) Voice Additional Areas of Concern frequent dry cough Rehab Expectation/Goals: Patient Goals Ruthy will be able to maintain vocal quality WF Patient Knowledge/Awareness of SECURITY OPERATIONS MANAGER Role Excellent in Treatment Objective Short Term Goals *Pt will participate in education of basic anatomy and physiology of vocal fold vibration *Pt will express management of vocal hygeine *Pt will express comprehension of GERD management *Pt will demonstrate relaxed throat breathing *Pt will demonstrate forward focus and coordination of phonation and breathing Penitentiary Goals Pt will maintain the best vocal quality for functional communication and participation in daily activities. Treatment Activities Reviewed strategies for abdominal breathing,cough supression strategies, tone focus for resonance and reduction of external laryngeal muscle tension(supra - and infrahyoid muscles). Additionally, discussed her progress to date over the past 6 weeks. Ruthy feels that she hasn't made the progress she had hoped for and would like to consider vocal fold augmentation. We discussed the pros/cons of augmentation relative to vocal quality as well as potentially reducing the frequency of her coughing and choking. Ruthy expressed a desire to speak with Dr. Cast[facility] in [facility] regarding vocal fold augmentation. We decided to discharge from vocal therapy at this time. Assessment Patient Response to Treatment Excellent Rehab Potential Good Impairments Identified Vocal Quality Assessment of Improvement Ruthy reported that she is coughing as much as she was using cough suppression strategies. Additionally, she repors that she is ot making the progress in her vocal quality she had hoped for. She requested that she be referred to Dr. Suero in [place] to discuss vocal fold augmentation. Will discharge at this time per Ruthy's request. Reviewed with Patient Goals,Progress Being Made,Home Exercise Program Plan Amount of Therapy Recommended No Further Therapy Frequency of Treatment No Further Therapy Therapeutic Contents Voice Training Provided Patient/Caregiver Instruction Home Exercise Program, Questions/Concerns,Other Therapy Recommendations Continue with Current Program, Discharge from Speech Therapy Suggested Referral ENT
== END 2020-07-10 12:32 ==
LOC: SP 14:30
PROVIDERS: Family Provider Internal Medicine; PCP Internal Medicine; Referring Provider Internal Medicine; Visit Provider Internal Medicine
DX: J38.01 Paralysis of vocal cords and larynx, unilateral (principal)
CPT/HCPCS: 92507; 92524

== ENCOUNTER → 2020-07-19 19:31 | Outpatient (ROUT) | payer BC, SELFPAY ==
[2020-07-19 19:35] LABS: Bacteria Urine None Seen; WBC Urine None Seen (0-5/HPF)
[2020-07-19 19:55] LABS: Appearance Urine UA CLEAR; Bilirubin Urine UA NEGATIVE (NEGATIVE); Color Urine UA YELLOW; Glucose Urine UA NEGATIVE (Negative); Ketones Urine UA NEGATIVE (NEGATIVE); Leukocyte Esterase Urine UA NEGATIVE (NEGATIVE); Nitrite Urine UA NEGATIVE (Negative); Occult Blood Urine UA 1+ (Negative); Protein Urine UA NEGATIVE (Negative); Specific Gravity Urine UA >=1.030 (1.000-1.035); Urobilinogen Urine UA 0.2 E.U./dL (0.2)
[2020-07-19 19:59] LABS: pH Urine UA 5.5 (4.5-8.0)
[2020-07-19 20:01] LABS: RBC Urine 1-5/HPF (0-5/HPF)
[2020-07-19 20:02] LABS: Squamous Epithelial Cell Urine 5-10 /HPF (0-5/HPF)
== END ==
PROVIDERS: Family Provider Internal Medicine; PCP Internal Medicine; Visit Provider Internal Medicine
DX: N39.0 Urinary tract infection, site not specified (principal); R35.0 Frequency of micturition
CPT/HCPCS: 81001; 87077; 87086; 87186

== ENCOUNTER → 2020-09-16 11:06 | Outpatient (CLI) | payer BC, SELFPAY ==
--- NOTE | 2020-09-16 | DI.RAD.S_ITS ---
PROCEDURE: FL BARIUM SWALLOW W SPEECH INDICATIONS: Other diseases of vocal cords COMPARISON: None. TECHNIQUE: Examination was conducted in conjunction with speech pathology per standard protocol. In the lateral projection, filming was performed of the patient swallowing. AP projection filming may also be performed with patient swallowing. COMPARISON: FINDINGS: Function: The oral preparatory phase appears normal, with proper containment. The subsequent oral propulsive phase, pharyngeal phase, and esophageal phase of swallowing also appear normal with all proffered substances. No laryngotracheal penetration or aspiration. No pathologic vallecular pooling. Morphology: No cricopharyngeal bar is identified. No cervical esophageal webs. No Zenker's diverticulum. No strictures. IMPRESSION: Normal study. Please correlate with speech pathology nodes. Dictated by: Musa Allen M.D. on 09/16/2020 at 12:37 Approved by: Musa Allen M.D. on 09/16/2020 at 12:38
--- NOTE | 2020-09-16 16:19 | ST.SWALLOW ---
Visit Care Team Role Provider Type Roseanna Joshi MD Family Provider Physician Primary Care Provider Specialty: Internal Medicine Address: [address] [place] [address], [id number] Email: [email or web address] Attending Provider Non-Staff Referring Provider Specialty: Allergy & Immunology Address: [address] [place], [address] Email: Modified Barium Swallow Study LEVEL VIAL MARKER Modified Barium Swallow Study Start: 09/16/20 12:13 Freq: Status: Active Protocol: Document 09/16/20 12:20 LNK (Rec: 09/16/20 13:38 LNK [id number]) Modified Barium Swallow Study Total Time Visit Start Time 11:25 Visit Stop Time 11:55 Total Visit Minutes 30 Referral Referring Physician [facility] cc: Roseanna Joshi MD Reason for Referral dysphagia Setting Setting Outpatient Care Patient Information Identification Type Name,Date of Patient History Ruthy Curry presented today for a Modified Barium Swallow Study secondary to 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 She is here to determine if her cough is related to aspiration. Subjective Observations Pt was seated in the fluoroscopy chair. Instructions and procedures were presented to the pt, who indicated she understood and agreed to proceed. Patient Positioning Position View Lateral Imaging Lateral View Textures Administered Trials Presented Thin Liquid via Spoon,Thin Liquid via Cup,Pudding Thick Liquid via Spoon,Mechanical Soft Textures,Regular Textures ,Barium Tablet Oral Phase Source: MBSIMP (TM) (C) Bolus Specific Scoring Grid Lip Closure WFL Tongue Control During Bolus Hold WFL Bolus Prep/Mastication WFL Bolus Transport/Lingual Motion WFL A/P Lingual Propulsion Delay No Oral Residue WFL Residue Clearing WFL Nasal Regurgitation No Pharyngeal Phase Source: MBSIMP (TM) (C) Bolus Specific Scoring Grid Delayed Initiation of Pharyngeal Swallow No Soft Palate Elevation WFL Tongue Base Strength/Range of Motion WFL Residue Along the Tongue Base No Laryngeal Elevation WFL Anterior Hyoid Movement WFL Epiglottic Range of Motion WFL Vallecular Residue No Laryngeal Vestibular Closure WFL Pharyngeal Stripping Wave WFL Posterior Pharyngeal Wall Residue No Upper Esophageal Sphincter Opening WFL Residue in the Pyriform Sinuses No Esophageal Clearance Upright Position WFL Pharyngoesophageal Backflow Observed No A/P View Clinical Impressions Dysphagia Type No obvious s/sx of oral or pharyngeal dysphagia Findings Ruthy Curry presented with oral and pharyngeal structures WFL for swallowing. No pooling, laryngeal penetration or aspiration were observed. Pt's right vocal fold appears to be able to adduct adequately for swallowing. Patient Appropriate for Therapy No Recommendations
== END ==
PROVIDERS: Family Provider Internal Medicine; PCP Internal Medicine; Referring Provider Allergy & Immunology; Visit Provider Allergy & Immunology
DX: J38.3 Other diseases of vocal cords (principal)
CPT/HCPCS: 74230; 92611

== ENCOUNTER → 2020-12-11 09:53 | Outpatient (CLI) | payer BC, SELFPAY ==
[2020-12-11 11:10] LABS: Free T4, Direct Thyroxine 1.01 ng/dL (0.78-2.19)
[2020-12-11 11:23] LABS: Thyroid Stimulating Hormone 1.12 uIU/mL (0.47-4.68)
== END ==
PROVIDERS: Family Provider Internal Medicine; PCP Internal Medicine; Referring Provider Obstetrics & Gynecology; Visit Provider Obstetrics & Gynecology
DX: N95.1 Menopausal and female climacteric states (principal)
CPT/HCPCS: 36415; 83001; 84439; 84443

== ENCOUNTER → 2021-01-27 11:20 | Outpatient (CLI) | payer BC, SELFPAY ==
[2021-01-27 13:24] LABS: COVID19 - ADMIT (NP swab/PCR) Negative (Negative)
== END ==
PROVIDERS: Family Provider Internal Medicine; PCP Internal Medicine; Visit Provider Student in an Organized Health Care Education/Training Program
DX: Z20.822 Contact with and (suspected) exposure to COVID-19 (principal)
CPT/HCPCS: U0003

== ENCOUNTER → 2021-02-21 09:33 | Outpatient (CLI) | payer BC, SELFPAY ==
--- NOTE | 2021-02-21 | DI.CT.S_ITS ---
PROCEDURE: CT SINUS SCREEN WO CON INDICATIONS: Chronic sinusitis, unspecified TECHNIQUE: Noncontrast 3.0 mm axial images acquired from the frontal sinuses to the mid-sella, with coronal and sagittal reformats. For radiation dose reduction, the following was used: automated exposure control, adjustment of mA and/or kV according to patient size. COMPARISON: [facility], CT, SINUS SCREEN WO CONTRAST, 02/08/2015, 10:23. [facility], CT, SINUS SCREEN WO CONTRAST, 08/02/2017, 10:13. FINDINGS: Image quality: Excellent. Maxillary Sinuses: Mild mucosal thickening is seen within the inferior maxillary sinuses. The medial chavira of the maxillary sinuses have been removed. Ethmoid Air Cells: There is been removal of portions of the inferior ethmoid air cell septations, right more prominent than left. Sinuses are clear. Sphenoid Sinuses: No bony remodeling or destruction. Sinuses are clear. Frontal Sinuses: No bony remodeling or destruction. Sinuses are clear. Ostiomeatal Complexes: Removed. Miscellaneous: Visualized intra-orbital contents are normal. A portion of the right middle turbinates has been removed. No nasal septal deviation. IMPRESSION: Postoperative changes are seen, with bilateral antrectomy. Mild mucosal thickening is seen within the inferior maxillary sinuses, which is improved compared to 2018. Dictated by: Dayron Larios M.D. on 02/21/2021 at 10:37 Approved by: Dayron Larios M.D. on 02/21/2021 at 10:40
== END ==
PROVIDERS: Family Provider Internal Medicine; PCP Internal Medicine; Referring Provider Otolaryngology; Visit Provider Otolaryngology
DX: J34.89 Other specified disorders of nose and nasal sinuses; R51.9 Headache, unspecified; J32.4 Chronic pansinusitis
CPT/HCPCS: 70486

== ENCOUNTER 2021-04-01 10:30 | Outpatient (RCR) | payer BC, SELFPAY ==
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
== END 2021-04-02 16:24 | disposition home or self-care (01) ==
LOC: PHYS 10:30
PROVIDERS: Family Provider Internal Medicine; PCP Internal Medicine; Referring Provider Internal Medicine; Visit Provider Internal Medicine
DX: M62.89 Other specified disorders of muscle (principal); N39.46 Mixed incontinence
CPT/HCPCS: 97110; 97112; 97140; 97161; 97535

== ENCOUNTER → 2021-05-19 09:04 | Outpatient (CLI) | payer BC, SELFPAY ==
[2021-05-19 09:47] LABS: COVID19 -Nasal RAPID Negative (Negative)
== END ==
PROVIDERS: Family Provider Internal Medicine; PCP Internal Medicine; Referring Provider Obstetrics & Gynecology; Visit Provider Obstetrics & Gynecology
DX: Z20.822 Contact with and (suspected) exposure to COVID-19 (principal); Z01.812 Encounter for preprocedural laboratory examination
CPT/HCPCS: 87635

== ENCOUNTER 2021-05-22 08:19 | Day surgery (SDC) | payer BC, SELFPAY ==
[2021-05-19 08:21] VITALS: BMI 27.6
[2021-05-22] VITALS (17 sets, daily range): BP systolic 103–137; BP diastolic 59–88; PULSE 83–92; RESP 14–18; TEMP 36.4–37.3; O2SAT 95–100; BMI 27.6
--- NOTE | 2021-05-22 | PATH_ITS ---
[facility] Accession Number: [id number] . 01 Material submitted: . uterus - UTERUS, CERVIX, BILATERAL FALLOPIAN TUBES AND OVARIES . 02 Diagnosis: Uterus with Cervix, Bilateral Fallopian Tubes and Ovaries, Total Hysterectomy and Bilateral Salpingo-oophorectomy: Adenomyosis. Multiple benign leiomyomata, up to 1.5 cm in greatest dimension. Secretory endometrium with no diagnostic abnormality. Cervix with no diagnostic abnormality. Left ovary with benign hemorrhagic corpus luteum cyst. Right ovary with no diagnostic abnormality. Bilateral fimbriated fallopian tubes with no diagnostic abnormality. No evidence of malignancy. [facility] 05/27/2021 1549 Local . 02 Electronically signed: . Al Parrish MD, PhD, Pathologist NPI- [id number] . 01 Gross description: . The specimen is received in formalin, labeled uterus, cervix, bilateral fallopian tubes, and bilateral ovaries, and consists of a 101 g uterus, cervix, bilateral ovaries and fallopian tubes. The specimen measures 10.0 cm from superior fundus to cervix by 5.0 cm from cornu to cornu by 5.0 cm from anterior to posterior. The serosa is buck-pink, focally hemorrhagic and smooth. The buck, wrinkled ectocervix measures 3.0 x 3.0 cm, and there is a 0.4 x 0.2 cm os. The specimen is bivalved to reveal a buck-pink, herringbone, and cystic endocervical mucosa. The endometrial cavity measures 4.0 x 2.5 cm and displays a buck-pink, glistening endometrium measuring 0.2 cm in thickness. The myometrium is buck-pink and trabeculated, measuring 1.9 cm in thickness. There are multiple buck-white, whorled leiomyomata ranging from 0.1 cm to 1.5 cm with no areas of hemorrhage, necrosis, or cystic degeneration. The ovaries average 2.8 x 2.1 x 1.2 cm and display buck-pink to pink-purple, focally hemorrhagic and smooth to cerebriform external surfaces. Sectioning reveals buck to buck-pink cut surfaces. The right fallopian tube measures 6.5 cm in length by 0.9 cm in diameter, and the left fallopian tube measures 6.0 cm in length by 0.9 cm in diameter. The serosa is pink-purple and smooth with focal fibrinous adhesions. Sectioning reveals a buck-pink mucosa and a stellate lumen measuring 0.3 cm in diameter. Plant Quality Manager sections are submitted. . A1: Anterior cervix. A2: Posterior cervix. A3-A4: Anterior uterus. A5-A6: Posterior uterus. A7-A8: Plant Quality Manager leiomyomata. A9: Plant Quality Manager right ovary. A10: Right fallopian tube, sales representative uniforms cross-sections, and bisected fimbriae. A11: Plant Quality Manager left ovary. A12: Left fallopian tube, sales representative uniforms cross-sections, and bisected fimbriae. ([id number]) /[facility] 05/24/2021 [facility]9 Local . 02 Pathologist provided ICD-10: D25.9, N80.0 . 02 CPT . 457691 Performed at: 01 [facility] [address] [id number] MD Romulo Sevilla MD Phone: [phone] Performed at: [facility] [address] [place] [id number] MD Pat Sepulveda MD Phone: [phone]
[2021-05-22] MEDS: LACTATED RINGERS 1,000 ML 100 ML IV ×2 (09:23→15:04)
--- NOTE | 2021-05-22 09:32 | PM.PREOP ---
Pre-operative Note COVID-19 COVID-19 status: Negative Result date/Date tested (Pos, Neg/Pending): 05/19/21 Interval Note History & Physical reviewed/Exam performed by Physician: Yes Changes to H&P: No H&P completed within 30 days and has changed as indicated here:: 05/19/21
[2021-05-22] MEDS: CEFAZOLIN 1 GM VIAL 2 GM IV (10:20)
--- NOTE | 2021-05-22 10:45 | SUR.OPER ---
Lithotomy on padded OR bed. [place] Pad Positioner under torso. Head on pillow, arms padded and tucked at sides. Legs secured in padded yellow fins stirrups.
[2021-05-22] MEDS: BUPIVACAINE 0.5% (PF) VIAL 30 ML INJ (11:06)
--- NOTE | 2021-05-22 12:21 | PM.GYNOP.1 ---
Operative Date/Time/Diagnoses Date of procedure: 05/22/21 Time of procedure: 12:21 Post-op diagnosis: same Procedure & Clinicians Procedure: Procedures Operation Date: 05/22/21 09:45 Actual Procedure Side Surgeon p Laparoscopic Assisted Vag Hysterectomy w/bilateral salpingo - oophorectomies Samira Albert MD s Anterior Repair Samira Albert MD s TVT w. cystoscopy Samira Albert MD Indications: Symptomatic uterine prolapse Symptomatic cystocele Stress urinary incontinence Surgeon: Samira Albert Electromechanical Assembly Technician: Kayla Mullen Anesthesia Type: General and Local Operative Notes Findings: Eight week size multi fibroid uterus Normal ovaries and tubes Epiploic appendice attached to the left infundibulopelvic ligament Second-degree cystocele Uterine prolapse Increased urethrovesical angle with Valsalva Closure Type: primary Specimen(s): left tube & ovary, right tube & ovary and uterus Applied: catheter (To continuous drainage) Estimated blood loss (mL): 75 Blood products transfused: none Procedure in detail: The patient was taken to the operating room where she was placed in the dorsal supine position. After adequate general endotracheal anesthesia was achieved, she was placed in the dorsal lithotomy position, and prepped and draped in the usual sterile fashion. A bivalve speculum was placed into the vagina, and a single-tooth tenaculum was placed on the anterior lip of the cervix. The cervical os was sequentially dilated until the ZUMI uterine manipulator could pass easily into the endometrial cavity. The single-tooth tenaculum was removed from the anterior lip of the cervix, and the bivalve speculum was removed from the vagina. Attention was then turned to the abdomen where 6 mL of half percent Marcaine with epinephrine were injected in the umbilical fold. A 5 mm incision was made. The Verees needle was placed into the peritoneal cavity, and its placement confirmed by aspiration and drop test. The abdominal cavity was insufflated with 4 L of CO2. The Verees needle was removed, and a 5 mm trocar was placed without difficulty. Initial inspection of the pelvis revealed the findings noted above. 2 other incisions were made at the level of the umbilicus 4 cm lateral to the midline. These were 5 mm incisions. Two 5 mm trochars were placed under direct visualization. The right tube and ovary were grasped with an atraumatic grasper. The infundibulopelvic ligament on the right side was cauterized and cut with plasma kinetic. The round ligament and broad ligament were cauterized and cut. This was continued to the level of the uterine arteries. This was repeated on the patient's left side after the epiploic appendice was dissected off of the infundibulopelvic ligament. The instruments were removed from the abdomen. The CO2 was turned off. The trocars were covered with sterile towels. Attention was then turned to the vagina where the ZUMI uterine manipulator was removed from the uterus. The cervix was grasped with a 4 tooth tenaculum. 10 mL of quarter percent Marcaine with epinephrine were injected circumferentially around the cervix. The cervix was circumscribed. The bladder and rectum were dissected off the lower uterine segment and cervix with an open moistened Ray-Santo. The peritoneum was entered sharply with the Metzenbaum scissors anteriorly and a Cesar placed. The peritoneum was entered posteriorly with the Metzenbaum scissors and the long weighted speculum was placed into the posterior cul-de-sac. The uterosacral cardinal ligament complexes were clamped, transected, and suture ligated with 0 Vicryl. These were attached to hemostat. The uterine arteries were clamped, transected, and suture ligated with 0 Vicryl. The uterus was handed off for specimen with the tubes and ovaries. The peritoneum was closed with a pursestring suture with 2-0 Vicryl. The vaginal cuff was closed with 0 Vicryl with a simple interrupted sutures. Hemostasis was achieved. Once the uterus was removed of the cystocele was found to be very minimal. Decision was made to proceed with the TVT with cystoscopy. The patient was placed on the table with her thighs parallel to the floor. A catheter was placed into the bladder. 100 cc injectable saline was placed into the space of Retzius using a # 20 gauge spinal needle. The midline above the pubic symphysis was marked with a marker as well as to finger breasts to either side of the midline. A weighted speculum was placed into the vagina. Allis clamps were placed lateral to the urethra approximately 1.5 cm from the urethral meatus. 5 cc of 0.25% Marcaine with epinephrine were injected submucosally. A 1 cm incision was made 1.5 cm away from the urethral meatus. This was dissected out laterally with the Metzenbaum scissors. With the bladder neck retracted away from the patient's right side 10 cc of 0.25% Marcaine with epinephrine were injected in the proposed space of the TVT. This was repeated on the patient's left side with the bladder neck retracted away from the patient's left side. The proposed spaces for the TVT were dissected the Hegar dilators to the # 6. The TVT was loaded. With the bladder neck retracted away from the patient's right side the TVT was directed towards the patient's right shoulder, perforating the urogenital diaphragm, and then coming up behind the pubic symphysis approximately 2 finger breaths away from the midline. A small incision was made and the TVT was grasped with a Rudy. The TVT introducer was then removed and placed on the other TVT. This was repeated on the patient's left side with the bladder neck retracted away from the patient's left side. The TVT was grasped with a Rudy. The bladder was filled with 240 cc of sterile saline. A cystoscopy was performed there was a bubble at the bladder dome. The TVT was not visible on either side. The TVT was pulled up by the trocars with enough space to fit a pickup in between the urethra and TVT. The patient was made to cough and initially there was a large leak. The TVT was tightened until there was no leak with cough or only a drop. The TVT was cut below the skin level with care not to over tighten. The vaginal mucosa was closed with 3-0 Vicryl in a running interlocking suture. Hemostasis was achieved. A vaginal pack was placed into the vagina. Attention was turned back to the abdomen where the abdominal cavity was re-insufflated with carbon dioxide gas. The pelvis was examined and there was no bleeding noted. The instruments were removed from the abdomen. The CO2 was allowed to escape. The incisions were closed with 4-0 Monocryl in a subcuticular fashion. The suprapubic incisions were closed with Dermabond. The urine was clear. Sponge, lap, and instrument counts were correct x-2. The patient tolerated the procedure well, was taken to PACU in stable condition. Complications: none Post-operative Condition: stable Disposition: PACU Plan for aftercare: To Acute Care after Recovery
[2021-05-22] MEDS: ACETAMINOPHEN 325 MG TABLET 650 MG PO ×3 (12:40→23:26)
[2021-05-22] MEDS: OXYCODONE IR 5 MG TABLET PO ×3 (12:41→21:13)
[2021-05-22] MEDS: fentaNYL 100 MCG/2 ML INJ IV ×2 (12:57→13:07)
[2021-05-22] MEDS: KETOROLAC 30 MG/ML VIAL IV ×2 (14:59→20:09)
--- NOTE | 2021-05-22 15:52 | PC.NURSE ---
Admit note: Received patient from PACU, awake, alert, and pleasantly cooperative. IVF and initiated on arrival. VSS and afebrile. Received on RA. Ice pack to surgical incisions. Sibley Cath to gravity, clear yellow urine. Oriented to room, environment, and plan of care. Spouse (Milad) at bedside providing supportive care. Dr. Albert at bedside post op. Communication order for removal of Sibley Cath/Packing at 0600 11/12 by nursing. Calls appropriately for staff assist.
[2021-05-22 16:47] LABS: Add Manual Diff / Slide Review NO; Basophils Absolute Auto 0 /uL (0-100); Basophils Percent Auto 0.1 % (0-2); Eosinophils Absolute Auto 0 /uL (0-450); Hematocrit 39.4 % (36-46); Hemoglobin 12.9 g/dL (12.0-16.0); Lymphocytes Absolute Auto 500 /uL (1100-4500); Lymphocytes Percent Auto 4.8 % (25-40); Mean Corpuscular HGB Conc 32.8 % (30-36); Mean Corpuscular Volume 88.4 fL (80-100); Monocytes Absolute Auto 100 /uL (0-900); Monocytes Percent Auto 0.9 % (3-14); Neutrophils Absolute Auto 10400 /uL (1500-7000); Neutrophils Percent Auto 94.2 % (50-75); Platelet Count 255 X10^3/uL (150-400); Red Blood Cell Count 4.46 X10^6/uL (4.0-5.2); Red Cell Distribution Width 13.1 % (11.6-14.8)
[2021-05-22] MEDS: ESTRADIOL 0.05 MG PATCH TOP (16:50)
[2021-05-22] MEDS: ONDANSETRON 4 MG/2 ML INJ IV (20:10)
[2021-05-22] MEDS: DOCUSATE 100 MG CAPSULE 200 MG PO (21:12)
[2021-05-23] MEDS: LACTATED RINGERS 1,000 ML 100 ML IV (00:42)
[2021-05-23 00:44] VITALS: BP 108/62; PULSE 94; RESP 18; TEMP 36.3; O2SAT 96
[2021-05-23] MEDS: OXYCODONE IR 5 MG TABLET PO ×2 (01:22→06:35)
[2021-05-23] MEDS: KETOROLAC 30 MG/ML VIAL IV ×2 (02:13→10:07)
[2021-05-23 05:50] VITALS: BP 124/72; PULSE 78; RESP 18; TEMP 36.4; O2SAT 100
[2021-05-23] MEDS: ACETAMINOPHEN 325 MG TABLET 650 MG PO ×2 (06:33→12:06)
[2021-05-23 08:51] VITALS: PULSE 73; RESP 16; O2SAT 100
[2021-05-23] MEDS: DOCUSATE 100 MG CAPSULE 200 MG PO (10:07)
[2021-05-23 10:15] VITALS: BP 117/80; PULSE 78; RESP 16; TEMP 36.6; O2SAT 97
--- NOTE | 2021-05-23 11:23 | PC.NURSE ---
Assess- Patient is alert and oriented x3, given toradol and ice packs for pain, Patient has 3 incisions to her lower abdomen covered with allevyn foam dressings. Scant amount of bleeding to ulices pad. She will be discharged at 1130.
--- NOTE | 2021-05-23 15:44 | CM.DANOTE ---
DCP Assessment: Patient is a a51 yr old female who had a hysterectomy preformed by Dr Albert. Patient lives with her milad and lives in a single level home. Cm met with patient at the bedside and explained role. patient was alert and oriented x4 and is Independent at baseline with ADLS and drives . I: [place] and self pay Plan: DC home with and sister today. no DC planning needs at this time. Roseanna Medina RNprotection manager. Discharge Planning/Care Management Advanced directive, confirm from FAMILY Start: 05/22/21 14:40 Freq: Q24H Status: Discharge Protocol: Document 05/22/21 14:40 EM (Rec: 05/22/21 14:40 EM [id number]) Advance Directive, confirm on record Time 14:40 Person contacted self Copy received No CM Discharge Assessment Start: 05/23/21 15:26 Freq: Status: Active Protocol: Document 05/23/21 13:00 HS (Rec: 05/23/21 15:34 HS [id number]) Discharge Planning Assessment Assigned Carroting Machine Operator Roseanna Medina RNprotection manager DPOA/Assigned Designee Name Milad Curry () Contact Information [phone] Advance Directives? Yes Advance Directives on File No History Provided By Patient,Medical Record Prior Living Arrangements House Household Members spouse Type of transporation used prior to Drives own vehicle admit Independent with ADL's Yes Is patient alert and oriented? Yes Caregiver for Another No Barriers to Discharge No Discharge Plan Home Transportation Arrangement Patients will transport her home at DC Whiteboard Updated in Patient Room with Yes name and ext. 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 Saenz @ . He is requesting smallest tube with direct visualization for intubation Patient Information Reviewed Via Chart Review,Phone Assessment Comment COVID screen @ 05/21/21 Primary Care Provider Roseanna Joshi Seen Specialist in Last 12 Months Yes Specialist Seen ENT,Supervisor Train Operations Primary Language Azerbaijani Deblocker Required No Height 167.64 cm Weight 77.564 kg Body Mass Index (BMI) 27.6 Barriers to Learning None Anesthesia Review Requested Yes: PAC courtesy re: Vocal cord paralysis Boat Tester No alcohol intake frequency a few times a month Smoking Status Never smoker Substance Use Type does not use History of Falling (Recent or History of No ) Patient is completely paralyzed or No completely immobile Mental Status Oriented to own ability Hx Sleep Apnea No Currently Taking a Beta Bar No Anti-Coagulant Therapy No Has a Machine Shop Specialist No Cardiac Testing No Hx Pacemaker/ICD No Pacemaker Rep Required? No Cardiac Clearance Received Not Applicable Bladder Pattern Incontinent, Stress,Retention Urinary Catheter Present No Hx Urinary Self Catheterization No Diabetes No Patient No Lactating No Marital Status Lives With spouse Patient Discharge Plan Description Return Home Advance Directives? No
[2024-04-06 08:16] VITALS: BMI 26.3
== END 2021-05-23 13:31 | disposition home or self-care (01) ==
LOC: OR 08:21 → AC 08:24
PROVIDERS: Family Provider Internal Medicine; PCP Internal Medicine; Referring Provider Obstetrics & Gynecology; Visit Provider Obstetrics & Gynecology
PROC: 0UT9FZZ Resection of Uterus, Via Natural or Artificial Opening With Percutaneous Endoscopic Assistance (ICD-10-PCS; CPT 58552; principal; 2021-05-22 09:45)
PROC: 0TSD0ZZ Reposition Urethra, Open Approach (ICD-10-PCS; CPT 58552; 2021-05-22 09:45)
DX: N81.2 Incomplete uterovaginal prolapse (principal); N39.3 Stress incontinence (female) (male); F41.9 Anxiety disorder, unspecified; F32.9 Major depressive disorder, single episode, unspecified
CPT/HCPCS: 58552; 57288; 36415; 85025; C1771; J0360; J0690; J1100; J1885; J2405; J2704; J3010

== ENCOUNTER → 2021-06-18 08:39 | Outpatient (CLI) | payer BC, SELFPAY ==
[2021-05-22 14:01] VITALS: BMI 27.6
[2021-06-18 13:05] LABS: COVID19 -Nasal RAPID Negative (Negative)
== END ==
PROVIDERS: Family Provider Internal Medicine; PCP Internal Medicine; Visit Provider Physician Assistant
DX: Z20.822 Contact with and (suspected) exposure to COVID-19 (principal)
CPT/HCPCS: 87635

== ENCOUNTER 2021-06-19 09:59 | Day surgery (SDC) | payer BC, SELFPAY ==
[2021-05-22 14:01] VITALS: BMI 27.6
[2021-06-18 10:36] VITALS: BMI 27.6
[2021-06-19 10:23] VITALS: BP 135/95; PULSE 83; RESP 16; TEMP 36.8; O2SAT 100; BMI 28.2
[2021-06-19] MEDS: ACETAMINOPHEN 325 MG TABLET 975 MG PO (10:43)
[2021-06-19] MEDS: LACTATED RINGERS 1,000 ML 42 ML IV (10:44)
[2021-06-19] MEDS: SCOPOLAMINE 1 PATCH TOP (10:44)
[2021-06-19] MEDS: OXYMETAZOLINE NASAL SPRAY 15 ML 2 SPRAYS NASAL ×2 (10:45→12:57)
--- NOTE | 2021-06-19 11:55 | PM.PREOP ---
Pre-operative Note Interval Note History & Physical reviewed/Exam performed by Physician: Yes Changes to H&P: No
--- NOTE | 2021-06-19 11:56 | P.OP_ITS ---
Operative Date/Time/Diagnoses Date of procedure: 06/19/21 Time of procedure: 13:23 Pre-op diagnosis: Nasal airway obstruction, septal deviation, inferior turbinate hypertrophy, possible internal nasal valve restriction Post-op diagnosis: same Procedure & Clinicians Procedure: 1. Septoplasty 2. Inferior turbinate reduction bilateral, via intramural cautery Same procedure as scheduled: Yes Indications: 51-year-old female with the above diagnoses incompletely managed with medical therapy presents for the above procedures. Following discussion of the material risks benefits complications and alternatives, she elected to proceed. Surgeon: Bran Cohen Click Yes if Unassisted: Yes Anesthesia Type: General and Local Operative Notes Findings: 2+ left anterior septal deviation, right greater than left inferior turbinate hypertrophy. 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 SCD utilized on right leg due to persistent symptoms following radiofrequency ablation of left lower extremity varicose veins 02/2021. Closure Type: primary Estimated Blood Loss (mL): 20 Procedure in detail: Following identification and confirmation of consent as well as preoperative Afrin nasal spray, the patient was brought to the operating room suite and placed in the supine position. General endotracheal anesthesia was administered. I infiltrated the septum widely bilaterally with 1% lidocaine 1 100,000 epinephrine followed by temporary packing with cotton with Afrin and 4% lidocaine. Following sterile prep and drape, the packing was removed and I performed a right scott-transfixion incision despite prior scar from surgery, elevated the right mucoperichondrial flap, with absent cartilage and bone more posteriorly c/w prior surgery, no further posterior dissection was performed. The residual quadrilateral cartilage was further straightened by trimming it inferiorly. A 2 mm strip of cartilage paralleling the residual 2 cm dorsal and 1 cm caudal strut was resected to further straighten the quadrilateral cartilage. The hemitransfixion incision was closed with interrupted 5 0 chromic followed by a running 4 0 plain gut mattress suture to reapproximate the septal flaps. At case completion, 20/1000th of an inch silastic splints were placed b ilaterally, sutured anteriorly with a single 4 0 nylon. The head of each inferior turbinate had been previously infiltrated with additional local anesthetic and a 25 gauge spinal needle was used to impale the length of the turbinate, with cautery on a setting of 15 activated on slow withdrawal, 3 passes on the RIGHT, 2 passes on the LEFT. The turbinates were then outfractured. The procedure completed, sponge and needle counts were correct and the patient was extubated in the operating room and taken to recovery room in stable condition without known complication. Postoperative care: Nasal saline every hour while awake, Vaseline or Polysporin to the nostrils at all times, begin irrigations t.i.d. beginning pod 1. Humidifier at the bedside blowing on the face. Tylenol alternating with Advil for pain control, oxycodone if necessary for breakthrough pain. Complications: none Post-operative Condition: stable Disposition: same day surgery Plan for aftercare: Nasal saline every hour while awake, begin irrigations t.i.d. tomorrow if desired. Polysporin to the nostrils at all times, Tylenol alternating with Advil for pain control, oxycodone for breakthrough pain. Ice to the upper lip. Elevate head of bed, no nose blowing, no straining for 2 weeks. Follow-up in 1 week for nasal splint removal.
[2021-06-19] MEDS: BACITRACIN 28 GM OINT 1 APPLIC TOP (12:23)
[2021-06-19] MEDS: LIDOCAINE 1% W/EPI 20 ML INJ (12:24)
[2021-06-19] MEDS: LIDOCAINE 4% SOLN 50 ML 20 ML TOP (12:24)
--- NOTE | 2021-06-19 12:44 | SUR.OPER ---
Supine on padded OR bed, head on pillow, arms padded and tucked at sides, legs uncrossed, safety belt at thigh, tape over blanket over lower legs .
[2021-06-19 13:30] VITALS: BP 143/96; PULSE 95; RESP 11; TEMP 36.3; O2SAT 99
[2021-06-19 13:34] VITALS: BP 153/81; PULSE 89; RESP 7; O2SAT 100
[2021-06-19 13:39] VITALS: BP 144/89; PULSE 87; RESP 8; O2SAT 100
[2021-06-19 13:54] VITALS: BP 169/103; PULSE 912; RESP 10; TEMP 36.5; O2SAT 99
[2021-06-19 14:17] VITALS: BP 131/90; PULSE 76; RESP 20; TEMP 36.7; O2SAT 98
--- NOTE | 2021-06-19 14:22 | SUR.PHASEII ---
pT ASSISTED TO br, VOIED LOTS PER PT, PT READY to RIDE CALLED, dressing remained c/d/i and pt left unit in stable condition.
== END 2021-06-19 14:30 | disposition home or self-care (01) ==
PROVIDERS: Family Provider Internal Medicine; PCP Internal Medicine; Referring Provider Otolaryngology; Visit Provider Otolaryngology
PROC: (CPT 30520; principal; 2021-06-19 11:00)
DX: J34.2 Deviated nasal septum (principal); J34.89 Other specified disorders of nose and nasal sinuses; J34.3 Hypertrophy of nasal turbinates
CPT/HCPCS: 30520; 30802; J0330; J1100; J2250; J2405; J2704; J3010

== ENCOUNTER → 2021-07-09 12:58 | Outpatient (CLI) | payer BC, SELFPAY ==
[2021-05-22 14:01] VITALS: BMI 27.6
--- NOTE | 2021-07-09 | DI.US.S_ITS ---
PROCEDURE: US PERIPH VENOUS LOW EXTREM LT INDICATIONS: R/O DVT TECHNIQUE: Real-time imaging, as well as color and pulse Doppler interrogation, were performed of the lower extremity deep veins from the inguinal ligament to the popliteal fossa. COMPARISON: None. FINDINGS: The common femoral, femoral and popliteal veins are normally compressible, and free of intraluminal thrombus. Color and pulse Doppler demonstrate normal phasic intraluminal flow. There is normal augmentation response to distal compression maneuver. IMPRESSION: No deep venous thrombosis. Dictated by: Latasha Leonard M.D. on 07/09/2021 at 16:30 Approved by: Latasha Leonard M.D. on 07/09/2021 at 16:32
== END ==
PROVIDERS: Family Provider Internal Medicine; PCP Internal Medicine; Referring Provider Internal Medicine; Visit Provider Internal Medicine
DX: M79.605 Pain in left leg (principal)
CPT/HCPCS: 93971

== ENCOUNTER → 2021-11-20 11:08 | Outpatient (CLI) | payer BC, SELFPAY ==
[2021-05-22 14:01] VITALS: BMI 27.6
[2021-11-20 12:24] LABS: Influenza A - CEPHEID Flu A NEGATIVE (NEGATIVE); Influenza B - CEPHEID Flu B NEGATIVE (NEGATIVE)
[2021-11-20 12:30] LABS: COVID-19 CEPHEID PCR (VTM/NP) Negative (Negative)
== END ==
PROVIDERS: Family Provider Internal Medicine; PCP Internal Medicine; Visit Provider Physician Assistant
DX: R05.9 Cough, unspecified (principal)
CPT/HCPCS: 0240U

== ENCOUNTER → 2021-12-22 11:26 | Outpatient (CLI) | payer BC, SELFPAY ==
[2021-05-22 14:01] VITALS: BMI 27.6
--- NOTE | 2021-12-22 11:28 | DI.RAD.S_ITS ---
PROCEDURE: XR FOOT LT MIN 3V INDICATIONS: Foot Injury TECHNIQUE: Three views of the foot were acquired. COMPARISON: None. FINDINGS: Bones: No acute fractures or dislocations. No suspicious bony lesions. Small posterior and plantar calcaneal enthesophytes. Soft tissues: Soft tissue edema is seen at the lateral hindfoot. IMPRESSION: No acute osseous abnormality. If clinical suspicion and/or symptoms persist, additional imaging with repeat plain films, or advanced imaging (e.g. CT, MRI) may be helpful for further assessment. Dictated by: Cristian Staton M.D. on 12/22/2021 at 12:00 Approved by: Cristian Staton M.D. on 12/22/2021 at 12:02
--- NOTE | 2021-12-22 11:28 | DI.RAD.S_ITS ---
PROCEDURE: XR ANKLE LT MIN 3V INDICATIONS: Ankle injury TECHNIQUE: 3 views of the ankle were acquired. COMPARISON: [facility], CR, XR FOOT 3+ VIEWS BILATERAL, 05/23/2020, 14:13. FINDINGS: Bones: No acute fractures or dislocations. Ankle mortise is normally aligned. No suspicious bony lesions. Small posterior and plantar calcaneal enthesophytes. Soft tissues: No suspicious soft tissue calcification. Prominent soft tissue edema is seen at the lateral aspect of the ankle. IMPRESSION: No acute osseous abnormality. If clinical suspicion and/or symptoms persist, additional imaging with repeat plain films, or advanced imaging (e.g. CT, MRI) may be helpful for further assessment. Dictated by: Cristian Staton M.D. on 12/22/2021 at 11:57 Approved by: Cristian Staton M.D. on 12/22/2021 at 12:00
== END ==
PROVIDERS: Family Provider Internal Medicine; PCP Internal Medicine; Referring Provider Nurse Practitioner Family; Visit Provider Nurse Practitioner Family
DX: S99.922A Unspecified injury of left foot, initial encounter (principal); M25.572 Pain in left ankle and joints of left foot; X58.XXXA Exposure to other specified factors, initial encounter
CPT/HCPCS: 73610; 73630

== ENCOUNTER → 2022-02-06 14:09 | Outpatient (CLI) | payer BC, SELFPAY ==
[2021-05-22 14:01] VITALS: BMI 27.6
[2022-02-06 16:51] LABS: HEMOLYSIS < 15 (0-50); Iron 95 ug/dL (37-170)
[2022-02-06 17:05] LABS: Percent Iron Saturation 33 % (15-50); Total Iron Binding Capacity 292 ug/dL (265-497); Transferrin 247 mg/dL (206-381)
[2022-02-06 17:18] LABS: Progesterone, Total 7.24 ng/mL
[2022-02-06 17:23] LABS: Thyroid Stimulating Hormone < 0.015 uIU/mL (0.47-4.68)
[2022-02-06 17:34] LABS: Estradiol, Total 1553.9 pg/mL
[2022-02-13 10:41] LABS: Percent Free Testosterone 2.09 % (0.50-2.80); Testosterone Free 0.08 ng/dL (0.10-0.85); Testosterone Total 3.8 ng/dL (.)
== END ==
PROVIDERS: Family Provider Internal Medicine; PCP Internal Medicine; Referring Provider Obstetrics & Gynecology; Visit Provider Obstetrics & Gynecology
DX: N95.1 Menopausal and female climacteric states (principal)
CPT/HCPCS: 36415; 82670; 83540; 83550; 84144; 84402; 84403; 84439; 84443

== ENCOUNTER → 2022-02-10 16:16 | Outpatient (CLI) | payer BC, SELFPAY ==
[2021-05-22 14:01] VITALS: BMI 27.6
--- NOTE | 2022-02-10 | DI.MG.S_ITS ---
BILATERAL DIGITAL SCREENING MAMMOGRAM 3D/2D WITH CAD: 02/10/2022 CLINICAL: Routine screening. Comparison is made to exams dated: 11/22/2015 mammogram and 10/16/2014 mammogram - [facility]. The tissue of both breasts is heterogeneously dense. This may lower the sensitivity of mammography. Current study was also evaluated with a Computer Aided Detection (CAD) system. No significant masses, calcifications, or other findings are seen in either breast. There has been no significant interval change. IMPRESSION: NEGATIVE There is no mammographic evidence of malignancy. A 1 year screening mammogram is recommended. Based on the Tyrer Cuzick model (a risk assessment model) the patient's lifetime risk is 12.3% and her 10 year risk is 3.2%. According to the ACR, ACS, and NCCN guidelines, an annual breast MRI exam along with mammogram is recommended if the patient's lifetime risk is 20% or greater. This exam was interpreted at Station ID: [id number]. NOTE: For mammograms, a report in lay terms will be sent to the patient. Approximately 15% of breast malignancies will not be visualized mammographically. In the management of a palpable breast mass, a negative mammogram must not discourage biopsy of a clinically suspicious lesion. Electronically Signed By: Cristian matthew/monica:02/11/2022 08:07:16 letter sent: Normal Exam ACR BI-RADS Category 1: Negative [id number]
== END ==
PROVIDERS: Family Provider Internal Medicine; PCP Internal Medicine; Referring Provider Internal Medicine; Visit Provider Internal Medicine
DX: Z12.31 Encounter for screening mammogram for malignant neoplasm of breast (principal)
CPT/HCPCS: 77063; 77067

== ENCOUNTER 2022-02-12 14:25 | Observation (INO) | payer BC, SELFPAY ==
[2021-05-22 14:01] VITALS: BMI 27.6
[2022-02-12] VITALS (8 sets, daily range): BP systolic 123–176; BP diastolic 83–105; PULSE 70–84; RESP 14–26; TEMP 36.3–36.5; O2SAT 96–100; BMI 26.6; BMI 27.2
--- NOTE | 2022-02-12 14:34 | DI.RAD.S_ITS ---
PROCEDURE: XR CHEST 1V INDICATIONS: Possible stroke TECHNIQUE: One view of the chest was acquired. COMPARISON: [facility], CR, XR CHEST 2V, 11/07/2019, 14:39. FINDINGS: Surgical changes and devices: None. Lungs and pleura: Lungs are clear. No pleural effusions or pneumothorax. Mediastinum: Mediastinal contours appear normal. Heart size is normal. Bones and chest wall: No suspicious bony lesions. Overlying soft tissues appear unremarkable. IMPRESSION: No acute cardiopulmonary pathology. Dictated by: Musa Allen M.D. on 02/12/2022 at 14:19 Approved by: Musa Allen M.D. on 02/12/2022 at 14:19
--- NOTE | 2022-02-12 14:34 | DI.CT.S_ITS ---
PROCEDURE: CT ANGIO HEAD AND NECK INDICATIONS: Possible stroke TECHNIQUE: After the administration of intravenous contrast, 1 mm thick sections acquired from the aortic arch through the [place] of [place]. Post-contrast 4.5 mm thick sections then re-acquired from the foramen magnum to the vertex. 3-dimensional vsnqceg-wbefcoubk-wdxrpcutll (MIP) and/or volume rendering reformats were acquired of the central intracranial vasculature and neck separately. For radiation dose reduction, the following was used: automated exposure control, adjustment of mA and/or kV according to patient size. COMPARISON: [facility], CT, CT STROKE, 02/12/2022, 14:48. FINDINGS: Image quality: Excellent. BRAIN: CSF spaces: Ventricles are normal in size and shape. Basal cisterns are patent. No extra-axial fluid collections. Brain: No midline shift. No intracranial bleeds or masses. Ribera-white matter interface appears intact. Skull and face: Calvarium and facial bones appear intact, without suspicious lesions. Orbits appear normal. Sinuses: Sinuses and mastoids are clear. HEAD CT ANGIOGRAPHY: Anterior circulation: Intracranial internal carotid arteries are normal in size and flow. The flow within the paired anterior cerebral arteries is normal and symmetric. The flow within the middle cerebral arteries is normal and symmetric. The anterior communicating artery is seen. No aneurysms are seen. Posterior circulation: Visualized portions of the vertebral arteries demonstrate normal caliber, and join to form a normal appearing basilar artery. Flow within the posterior cerebral arteries is normal and symmetric. No aneurysms are seen. NECK CT ANGIOGRAPHY: Carotid system: The great vessels demonstrate a conventional anatomy as they arise from the aortic arch. The origins of the common carotid arteries appear patent. The common carotid arteries demonstrate normal caliber and courses. The bifurcation regions are both widely patent. The internal carotid arteries demonstrate normal calibers and courses. Posterior circulation: The origins of the vertebral arteries both appear widely patent. The more superior extracranial portions of both vertebral arteries also demonstrate normal courses and calibers. They join to form a normal appearing basilar artery. Soft tissues: Visualized neck soft tissues demonstrate no suspicious abnormalities. Bones: No suspicious bony lesions. Visualized cervical spine appears normally aligned. IMPRESSION: No hemodynamically significant stenosis or occlusion of the major intracranial or extracranial arterial vasculature. Any quantitative measurements of stenosis were performed using NASCET criteria. Dictated by: Juvenal Diaz M.D. on 02/12/2022 at 15:14 Approved by: Juvenal Diaz M.D. on 02/12/2022 at 15:17
--- NOTE | 2022-02-12 14:34 | DI.CT.S_ITS ---
PROCEDURE: CT STROKE INDICATIONS: Positive BE-FAST, Stroke symptoms TECHNIQUE: Noncontrast 4.5 mm thick angled axial sections acquired from the foramen magnum to the vertex, with coronal reformats. For radiation dose reduction, the following was used: automated exposure control, adjustment of mA and/or kV according to patient size. COMPARISON: None. FINDINGS: Image quality: Excellent. CSF spaces: Basal cisterns are patent. No extra-axial fluid collections. Ventricles are normal in size and shape. Brain: No midline shift. No intracranial masses or hemorrhage. Ribera-white matter interface is normal. Skull and face: Calvarium and visualized facial bones are intact, without suspicious lesions. Sinuses: Visualized sinuses and mastoids are clear. IMPRESSION: No acute intracranial disease process. Findings telephoned to Dr. Stuart on February 12, 2022 at 3:00 p.m. This study fulfills neurological imaging criteria for inclusion or exclusion of acute stroke therapies based on available published neurological imaging guidelines. Dictated by: Porsha Vaz MD, PhD on 02/12/2022 at 15:00 Approved by: Porsha Vaz MD, PhD on 02/12/2022 at 15:05
[2022-02-12 15:01] LABS: Add Manual Diff / Slide Review NO; Basophils Absolute Auto 0 /uL (0-100); Basophils Percent Auto 0.3 % (0-2); Eosinophils Absolute Auto 100 /uL (0-450); Hematocrit 42.5 % (36-46); Hemoglobin 14.4 g/dL (12.0-16.0); Lymphocytes Absolute Auto 1600 /uL (1100-4500); Lymphocytes Percent Auto 22.8 % (25-40); Mean Corpuscular Hemoglobin 29.6 PG (26-34); Monocytes Absolute Auto 400 /uL (0-900); Monocytes Percent Auto 6.2 % (3-14); Neutrophils Absolute Auto 4900 /uL (1500-7000); Neutrophils Percent Auto 68.7 % (50-75); Platelet Count 302 X10^3/uL (150-400); Red Blood Cell Count 4.88 X10^6/uL (4.0-5.2); Red Cell Distribution Width 14.2 % (11.6-14.8); White Blood Cell Count 7.1 X10^3/uL (4.5-11.0)
[2022-02-12 15:12] LABS: Prothrombin Time 11.2 SECONDS (10.1-12.7)
[2022-02-12 15:15] LABS: PTT Partial Thromboplastin Tim 35 SECONDS (26.4-36.2)
[2022-02-12 15:17] LABS: Alanine Aminotransferase 18 IU/L (<35); Albumin 4.5 g/dL (3.5-5.0); Albumin Globulin Ratio 1.3 (1.0-2.8); Alkaline Phosphatase 83 U/L (38-126); Aspartate Aminotransferase 21 IU/L (14-36); Bilirubin Total 0.7 mg/dL (0.2-1.3); Blood Urea Nitrogen 20 mg/dL (7-17); Carbon Dioxide 34 mmol/L (22-32); Chloride 100 mmol/L (98-107); Creatine Kinase 40 U/L (30-135); Estimated Glomerular Filt Rate > 60 mL/min (>60); Globulin 3.4 g/dL (1.7-4.1); Glucose 98 mg/dL (70-100); HEMOLYSIS < 15 (0-50); Magnesium 2.2 mg/dL (1.6-2.3); Potassium 3.9 mmol/L (3.4-5.1); Sodium 137 mmol/L (137-145); Total Protein 7.9 g/dL (6.3-8.2)
--- NOTE | 2022-02-12 15:23 | PC.NURSE ---
Notified provider of patient's NIH, current symptoms and recent medical hx.
[2022-02-12 15:28] LABS: Troponin I < 0.012 ng/mL (0.01-0.034)
[2022-02-12 15:41] LABS: COVID19 -Nasal RAPID Negative (Negative)
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
[2022-02-12] MEDS: ASPIRIN 81 MG CHEW TAB 324 MG PO (16:43)
[2022-02-12 16:53] LABS: UR Morphine/Opiate cutoff 300 Negative (Negative); Ur Creatinine Normal (Normal); Ur Specific Gravity Normal (Normal); Urine Amphetamines Negative (Negative); Urine Barbiturates Negative (Negative); Urine Benzodiazepines Negative (Negative); Urine Cocaine Negative (Negative); Urine MDMA Negative (Negative); Urine Methadone Negative (Negative); Urine Methamphetamines Negative (Negative); Urine Oxycodone Negative (Negative); Urine Phencyclidine Negative (Negative); Urine Tetrahydrocannabinol Negative (Negative); Urine Tricyclic Antidepressant Negative (Negative); Urine pH Normal (Normal)
--- NOTE | 2022-02-12 17:28 | DI.MRI.S_ITS ---
PROCEDURE: MR HEAD/BRAIN WO CON INDICATIONS: stroke, expressive aphasia, left ataxia, sensation TECHNIQUE: Non-contrast axial T1 spin echo, axial T2 fast spin echo, sagittal and axial FLAIR, coronal T2 fast spin echo, axial gradient echo, axial diffusion and ADC through the brain. COMPARISON: [facility], CT, CT ANGIO HEAD AND NECK, 02/12/2022, 14:48. [facility], CT, CT STROKE, 02/12/2022, 14:48. [facility], MR, BRAIN WITHOUT CONTRAST, 08/24/2017, 16:44. FINDINGS: Image quality: This examination is limited by involuntary motion artifact. CSF spaces: Ventricles appear symmetric in size and shape. Basal cisterns are patent. No extra-axial fluid collections. Brain: No intracranial bleeds or mass effects. There is cerebral volume loss for age. There are periventricular and deep white matter chronic small vessel ischemic changes. Brainstem appears normal. Diffusion-weighted images show no acute ischemic insults. No chronic ischemic insults. Normal intravascular flow voids are present. Skull and face: Calvarial bone marrow is normal in signal. Orbits are normal. Sinuses: Sinuses and mastoids are clear. Prior antrectomy change is incidentally noted. IMPRESSION: No findings of acute or subacute infarction can be seen. Dictated by: Dayron Larios M.D. on 02/12/2022 at 18:01 Approved by: Dayron Larios M.D. on 02/12/2022 at 18:02
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
[2022-02-12] MEDS: ACETAMINOPHEN 325 MG TABLET 650 MG PO (21:22)
[2022-02-12] MEDS: diphenhydrAMINE 25 MG TABLET PO (21:23)
[2022-02-12] MEDS: SODIUM CHLORIDE 0.9% FLUSH 10 ML IV (21:43)
[2022-02-13 00:44] VITALS: BP 120/78; PULSE 70; RESP 18; TEMP 36.4; O2SAT 97
--- NOTE | 2022-02-13 01:15 | PC.NURSE ---
Pt. requested Tylenol & Benadryl to help her sleep, administered @ 2122. She's sound asleep now NIH scale not assess for now. Will monitor & will assess NIH stroke scale when she wakes up.
[2022-02-13 04:00] VITALS: BP 102/72; PULSE 74; RESP 18; TEMP 36.4; O2SAT 97
[2022-02-13] MEDS: ACETAMINOPHEN 325 MG TABLET 650 MG PO ×2 (04:40→10:15)
[2022-02-13 05:27] LABS: Add Manual Diff / Slide Review NO; Basophils Absolute Auto 0 /uL (0-100); Basophils Percent Auto 0.4 % (0-2); Eosinophils Absolute Auto 200 /uL (0-450); Eosinophils Percent Auto 3.2 % (2-4); Hematocrit 39.9 % (36-46); Hemoglobin 13.2 g/dL (12.0-16.0); Lymphocytes Absolute Auto 2200 /uL (1100-4500); Lymphocytes Percent Auto 38.8 % (25-40); Mean Corpuscular HGB Conc 33.1 % (30-36); Mean Corpuscular Volume 87.7 fL (80-100); Monocytes Absolute Auto 400 /uL (0-900); Monocytes Percent Auto 7.1 % (3-14); Neutrophils Absolute Auto 2900 /uL (1500-7000); Neutrophils Percent Auto 50.5 % (50-75); Platelet Count 266 X10^3/uL (150-400); Red Blood Cell Count 4.55 X10^6/uL (4.0-5.2); Red Cell Distribution Width 14.4 % (11.6-14.8); White Blood Cell Count 5.8 X10^3/uL (4.5-11.0)
[2022-02-13 05:45] LABS: BUN Creatinine Ratio 23.5 (6-22); Blood Urea Nitrogen 20 mg/dL (7-17); Calcium 8.4 mg/dL (8.4-10.2); Carbon Dioxide 32 mmol/L (22-32); Chloride 104 mmol/L (98-107); Estimated Glomerular Filt Rate > 60 mL/min (>60); Glucose 101 mg/dL (70-100); HEMOLYSIS < 15 (0-50); Potassium 4.1 mmol/L (3.4-5.1); Sodium 138 mmol/L (137-145)
[2022-02-13 06:10] LABS: Free T4, Direct Thyroxine 1.04 ng/dL (0.78-2.19)
[2022-02-13 06:23] LABS: Thyroid Stimulating Hormone 1.12 uIU/mL (0.47-4.68)
[2022-02-13 07:40] VITALS: BP 136/85; PULSE 73; RESP 16; TEMP 35.8; O2SAT 99
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
[2022-02-13] MEDS: FLUTICASONE 120 SPRAY/16 GM SPRAY.SUSP NASAL (10:15)
[2022-02-13] MEDS: SODIUM CHLORIDE 0.9% FLUSH 10 ML IV (10:18)
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
--- NOTE | 2022-02-13 12:48 | DI.ECHO.S_ITS ---
+ + :Name: CATHY NIX Study Date: 02/13/2022 Height: 66 in : :[facility] ReadingLocation: Weight: 165 lb : : Gender: Female BSA: 1.8 m2 : :: 1970 Age: 51 yrs BP: 102/72 mmHg: :Reason For Study: CVA : :Ordering Physician: ALETHEA, : :LYNNE Performed By: Willie Winkler : :Referring: LYNNE CLAIRE : + + Interpretation Summary The patient was in normal sinus rhythm during the exam. The left ventricle is normal in size and wall thickness. Left ventricular systolic function is normal. The ejection fraction is estimated to be 60-65%. Diastolic function could not be accurately assessed due to unobtainable data. Injection of contrast documented no interatrial shunt. Similar to 01/29/2020 Procedure: A two-dimensional transthoracic echocardiogram with color flow and Doppler was performed. The study quality was technically adequate. There is no prior echocardiogram noted for this patient. The patient was in normal sinus rhythm during the exam. Left Ventricle: The left ventricle is normal in size and wall thickness. Left ventricular systolic function is normal. The ejection fraction is estimated to be 60-65%. There are no focal wall motion abnormalities. Diastolic function could not be accurately assessed due to unobtainable data. Right Ventricle: The right ventricle is normal in size and function. Atria: Both atria are normal in size. The interatrial septum grossly appears intact with no obvious evidence for an atrial septal defect. Injection of contrast documented no interatrial shunt. Mitral Valve: The mitral valve is normal in structure and function. There is no mitral regurgitation noted. Aortic Valve: The aortic valve is normal in structure and function. No aortic regurgitation is present. Tricuspid Valve: The tricuspid valve is normal in structure and function. There is a trace or physiologic amount of tricuspid regurgitation. Pulmonary artery pressures cannot be estimated because of the lack of a measurable TR jet velocity. Pulmonic Valve: The pulmonic valve is normal in structure and function. There is no pulmonic valvular regurgitation. Great Vessels: The aortic root is normal size. The dimensions of the ascending aorta are normal. The IVC is of normal diameter and collapses greater than 50% with a sniff. This suggests a low right atrial pressure of 3 mm Hg. Pericardium/ Pleura There is no pericardial effusion. There is no pleural effusion. MMode/2D Measurements & Calculations LVIDd: 4.5 cm LVOT diam: 1.9 cm LVIDs: 2.8 cm Ao root diam: 2.6 cm FS: 37.8 % asc Aorta Diam: 2.9 cm IVSd: 0.78 cm LVPWd: 0.84 cm LV mary. diameter/BSA (cm/m^2): 2.5 LV sys. diameter/BSA (cm/m^2): 1.5 LA A2 area: 16.4 cm2 RA long axis: 4.8 cm LA A4 area: 14.3 cm2 RA area: 11.8 cm2 LA length (vol): 4.5 cm RA vol: 24.6 ml LA vol: 44.5 ml RA : 13.3 ml/m2 LA vol index: 24.2 ml/m2 TAPSE: 2.2 cm Doppler Measurements & Calculations Ao V2 max: 99.9 cm/sec LVOT Max Gustavo: 97.4 cm/sec Ao V2 mean: 70.9 cm/sec LV V1 max P.8 mmHg Ao max P.0 mmHg LV V1 VTI: 19.6 cm Ao mean P.2 mmHg DORIAN(I,D): 2.7 cm2 Ao V2 VTI: 20.9 cm DORIAN(V,D): 2.8 cm2 sev ratio: 0.94 DORIAN indexed to BSA (cm^2/m^2): 1.5 MV E max gustavo: 57.8 cm/sec SV(LVOT): 57.0 ml MV A max gustavo: 54.3 cm/sec MV E/A: 1.1 Med Peak E' Gustavo: 7.6 cm/sec E/E' med: 7.6 Lat Peak E' Gustavo: 8.2 cm/sec E/E' lat: 7.1 E/e' average: 7.3 MV dec time: 0.22 sec Reading Physician:MATTI
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
--- NOTE | 2022-02-13 14:08 | DI.US.S_ITS ---
PROCEDURE: US PERIP VENOUS LOW EXTREM BI INDICATIONS: LLE swelling and pain, please evaluate for thrombophlebitis TECHNIQUE: Real-time imaging, as well as color and pulse Doppler interrogation, were performed of the deep veins of both legs from the inguinal ligament to the popliteal fossa. COMPARISON: [facility], , [facility] VENOUS LOW EXTREM LT, 07/09/2021, 13:33. FINDINGS: Right: The common femoral, femoral and popliteal veins are normally compressible, and free of intraluminal thrombus. Color and pulse Doppler demonstrate normal phasic intravascular flow. There is normal augmentation response to distal compression maneuver. Left: The common femoral, femoral and popliteal veins are normally compressible, and free of intraluminal thrombus. Color and pulse Doppler demonstrate normal phasic intravascular flow. There is normal augmentation response to distal compression maneuver. IMPRESSION: Negative for deep venous thrombosis. Dictated by: Dayron Larios M.D. on 02/13/2022 at 15:42 Approved by: Dayorn Larios M.D. on 02/13/2022 at 15:43
[2022-02-13] MEDS: SUMAtriptan 25 MG TABLET 50 MG PO (14:45)
[2022-02-13] MEDS: VALPROIC ACID 1,000 MG in DEXTROSE 5 % IN WATER 50 ML 60 MG IV (16:37)
[2022-02-13 16:58] VITALS: BP 142/95; PULSE 74; RESP 16; TEMP 36.3; O2SAT 98
--- NOTE | 2022-02-13 18:43 | PC.NURSE ---
Discharge: Pt given trial of valporic acid IV. Medication was effective in relieving headache. Pt feels ready to d/c to home. D/c instructions reviewed. Questions answered. Spouse present at time of teaching. Pt desires to go home. Pt d/c to home via auto w/spouse.
--- NOTE | 2022-02-17 13:19 | PC.NURSE ---
Late entry: Valproic acid infusion initiated 02/13 at 1637, complete at 1738.
== END 2022-02-13 17:30 | disposition home or self-care (01) ==
LOC: ED 15:35 → AC 17:36
PROVIDERS: Family Medicine; Admitting Provider Student in an Organized Health Care Education/Training Program; Emergency Provider Emergency Medicine; Family Provider Internal Medicine; PCP Internal Medicine; Referring Provider Emergency Medicine; Visit Provider Student in an Organized Health Care Education/Training Program
DX: R29.818 Other symptoms and signs involving the nervous system (principal); R47.01 Aphasia; R47.89 Other speech disturbances; R29.706 NIHSS score 6; J38.01 Paralysis of vocal cords and larynx, unilateral; R53.1 Weakness; R03.0 Elevated blood-pressure reading, without diagnosis of hypertension; G43.409 Hemiplegic migraine, not intractable, without status migrainosus; F32.A Depression, unspecified; R94.6 Abnormal results of thyroid function studies; Z20.822 Contact with and (suspected) exposure to COVID-19
CPT/HCPCS: 36415; 70450; 70496; 70498; 70551; 71045; 80048; 80053; 80305; 81003; 82550; 82962; 83735; 84439; 84443; 84484; 85025; 85610; 85730; 87635; 92523; 93005; 93306; 93970; 96365; 97165; 99285; C9803; G0378; Q9967

== ENCOUNTER → 2022-04-09 14:49 | Outpatient (CLI) | payer BC, SELFPAY ==
[2022-02-12 18:19] VITALS: BMI 27.2
[2022-04-09 17:59] LABS: COVID19 -Nasal RAPID Negative (Negative)
== END ==
PROVIDERS: PCP Internal Medicine; Visit Provider Obstetrics & Gynecology
DX: Z20.822 Contact with and (suspected) exposure to COVID-19 (principal); Z01.812 Encounter for preprocedural laboratory examination
CPT/HCPCS: 87635

== ENCOUNTER 2022-04-10 11:18 | Day surgery (SDC) | payer BC, SELFPAY ==
[2022-02-12 18:19] VITALS: BMI 27.2
[2022-04-03 09:46] VITALS: BMI 26.6
[2022-04-10] MEDS: LACTATED RINGERS 1,000 ML 100 ML IV (11:30)
[2022-04-10 11:53] VITALS: BP 146/97; PULSE 88; RESP 18; TEMP 36.3; O2SAT 95; BMI 26.6
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
--- NOTE | 2022-04-10 13:21 | PM.PREOP ---
Pre-operative Note COVID-19 COVID-19 status: Negative Result date/Date tested (Pos, Neg/Pending): 04/09/22 Criteria for continued procedure: Non-surgical alternatives not available or appropriate per current SOC Interval Note History & Physical reviewed/Exam performed by Physician: Yes Changes to H&P: No H&P completed within 30 days and has changed as indicated here:: 04/10/22
[2022-04-10] MEDS: CEFAZOLIN 2 GM/100 ML PREMIX 100 ML IV (13:40)
[2022-04-10] MEDS: ACETAMINOPHEN IV 1,000 MG/100 ML VIAL 400 MG IV (13:50)
[2022-04-10] MEDS: BUPIVACAINE 0.25% (PF) 30 ML, EPINEPHrine 0.15 MG INJ (13:55)
--- NOTE | 2022-04-10 14:04 | PM.GYNOP.1 ---
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 After adequate LMA general anesthesia was achieved, she was placed in the dorsal lithotomy position, and prepped and draped in the usual sterile fashion. A Patel retractor was placed into the vagina. A red rubber catheter was placed into the bladder and kept in place throughout the procedure. Allis clamps were placed lateral to the midline at the level of the TVT. 6 cc of 0.25% Marcaine with epinephrine were injected submucosally. An elliptical incision was made around the exposed TVT. This was undermined. The TVT piece was excised. Fresh edges to the mucosa were created using Metzenbaum scissors. The mucosa was closed with 4 simple interrupted sutures with 3-0 chromic. Hemostasis was achieved. The urine was clear at the end of the procedure. The Patel retractor was removed from the vagina. The Allis clamps were removed from the mucosa. Sponge, lap, and instrument counts were correct x2. The patient tolerated the procedure well, and was taken to PACU in stable condition. Complications: none Post-operative Condition: stable Disposition: PACU Plan for aftercare: Home after recovery
[2022-04-10 14:08] VITALS: BP 138/80; PULSE 79; RESP 16; TEMP 36.1; O2SAT 99
[2022-04-10 14:13] VITALS: BP 147/98; PULSE 76; RESP 16; O2SAT 100
--- NOTE | 2022-04-10 14:14 | SUR.OPER ---
Lithotomy on padded OR bed, head on pillow, arms secured on padded arm boards at <90 degrees abduction. Legs secured in padded yellow fins stirrups.
[2022-04-10 14:19] VITALS: BP 147/78; PULSE 75; RESP 16; O2SAT 100
[2022-04-10 14:58] VITALS: BP 158/98; PULSE 78; RESP 16; O2SAT 99
== END 2022-04-10 15:07 | disposition home or self-care (01) ==
PROVIDERS: PCP Internal Medicine; Referring Provider Obstetrics & Gynecology; Visit Provider Obstetrics & Gynecology
PROC: 0TSD0ZZ Reposition Urethra, Open Approach (ICD-10-PCS; CPT 57287; principal; 2022-04-10 12:45)
DX: T83.711A Erosion of implanted vaginal mesh to surrounding organ or tissue, initial encounter (principal)
CPT/HCPCS: 57287; 00860; J0131; J0171; J0690; J1100; J1170; J2405; J2704

== ENCOUNTER → 2023-02-15 07:38 | Outpatient (CLI) | payer OTHER, SELFPAY ==
[2022-02-12 18:19] VITALS: BMI 27.2
--- NOTE | 2023-02-15 | DI.MG.S_ITS ---
BILATERAL DIGITAL SCREENING MAMMOGRAM 3D/2D WITH CAD: 02/15/2023 CLINICAL: Routine screening. Comparison is made to exams dated: 02/10/2022 mammogram, 11/22/2015 mammogram, and 10/16/2014 mammogram - [facility]. Both breasts are heterogeneously dense, which may obscure small masses (category c / 51-75% glandular tissue). Current study was also evaluated with a Computer Aided Detection (CAD) system. No significant masses, calcifications, or other findings are seen in either breast. There has been no significant interval change. IMPRESSION: NEGATIVE There is no mammographic evidence of malignancy. A 1 year screening mammogram is recommended. Based on the Tyrer Cuzick model (a risk assessment model) the patient's lifetime risk is 12.4% and her 10 year risk is 3.4%. According to the ACR, ACS, and NCCN guidelines, an annual breast MRI exam along with mammogram is recommended if the patient's lifetime risk is 20% or greater. This exam was interpreted at Station ID: [id number]. NOTE: For mammograms, a report in lay terms will be sent to the patient. Approximately 15% of breast malignancies will not be visualized mammographically. In the management of a palpable breast mass, a negative mammogram must not discourage biopsy of a clinically suspicious lesion. Electronically Signed By: Leigh Ann palacios/monica:02/15/2023 16:06:16 letter sent: Normal Exam ACR BI-RADS Category 1: Negative [id number]
== END ==
PROVIDERS: Family Provider Internal Medicine; PCP Internal Medicine; Referring Provider Internal Medicine; Visit Provider Internal Medicine
DX: Z12.31 Encounter for screening mammogram for malignant neoplasm of breast (principal)
CPT/HCPCS: 77063; 77067

== ENCOUNTER 2023-04-22 08:00 | Outpatient (RCR) | payer OTHER, SELFPAY ==
[2022-02-12 18:19] VITALS: BMI 27.2
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
--- NOTE | 2022-12-29 17:00 | PT.OPPOC ---
Physical, Occupational & Speech Therapy At [facility] Current Diagnoses Other specified disorders of muscle (12/29/22) Stress incontinence (female) (male) (12/29/22) Pelvic muscle wasting (12/29/22) Visit Care Team Role Provider Type Roseanna Joshi MD Family Provider Physician Primary Care Provider Specialty: Internal Medicine Address: [place], [address] Phone: Email: Samira Albert MD Attending Provider Physician Referring Provider Specialty: Gynecology PHARMACY RETAIL SUPPORT SPECIALIST Obstetrics Address: [address] [place] [address], [id number] Email: [email or web address] Plan Of Care PT-OP-T Assessment and Plan Start: 12/29/22 09:44 Freq: Status: Active Protocol: Document 12/29/22 09:45 [facility] (Rec: 12/29/22 14:59 [facility] [id number]) Physical Therapy Assessment Rehab Potential Rehabilitation Potential Excellent Evaluation Complexity Number of Personal Factors/Comorbidities 0 Number of Body Systems Impaired 1-2 Clinical Presentation at Evaluation Stable Goals 3 Impairment pt reports functional limitations of not being able to bike ride, swim or hike due to pelvic discomfort symptoms . Long-Term Goal (LTG) Ruthy is able to return to full activity without c/o pelvic discomfort LTG Duration 12 weeks 2 Impairment poor endurance of the pelvic floor with decreased ability to sustain a pelvic floor contraction more than a second or two Change Agent Goal (LTG) Ruthy is able to sustain a pelvic floor contraction x 10 seconds in supine LTG Duration 8 weeks 1 Impairment pt has difficulty with facilitation of the pelvic floor and today needed adductor and hip ER assist for any palpable pelvic floor contraction Short Term Goal (STG) with NMES and EMG biofeedback Ruthy is able to isolate her pelvic floor muscles STG Duration 3 weeks Long-Term Goal (LTG) Ruthy is able to increase strength of her pelvic floor by 1-2 muscle grades for improved support of the pelvis LTG Duration 12 weeks Assessment Summary Assessment Ruthy is a 52 year old female referred to PT for pelvic floor strengthening. She underwent a TVT revision . She has After the revision Ruthy notes she still had pain with biking and swimming activities. She was given estrogen cream to start using and this has helped with her pain levels. At this point she would like exercises to keep her pelvic floor strong and she would like to transition back to hiking, biking and swimming activities. With examination today Ruthy tests 1/5 MMT for all chavira of her pelvic floor. I used adductor and hip ER assist with her to facilitate a contraction. She was unable to sustain a contraction for any length of time. Ruthy is also weak in her lower abdominal wall. She is a good candidate for PT to work on improved strength and recruitment of the pelvic floor Physical Therapy Plan Frequency and Duration Frequency of Treatment 1x/Week Duration of treatment (weeks) 12 Plan of Care Start Date 12/29/22 Plan of Care End Date 03/23/23 Therapeutic Interventions Therapeutic Interventions Home Exercise Program, Neuromuscular Re-education, Patient/Caregiver Education, Self-Care/Home Management, Therapeutic Exercises Modalities Biofeedback Next Visit Focus/Plan Next Note Type Treatment Note Next Visit Plan EMG biofeedback next visit for pelvic floor strengthening along with a trial of NMES next visit to help with improved sensation of pelvic floor contractions Plan of Care Dates Plan of Care Start Date 12/29/22 Plan of Care End Date 03/23/23 Electronically Signed by: Jeannette Alvarez, PT 12/30/22 1006 If you are in agreement with this Plan of Care, please return a signed and dated copy. I have reviewed this Plan of Care and certify that the skilled therapy services above are required to meet the patient?s needs. Physician Signature Date Printed Name and Credentials Clinical Instructor Signature Printed Name and Credentials
--- NOTE | 2023-02-24 13:33 | PT.OTN ---
Current Diagnoses Other specified disorders of muscle (02/24/23) Stress incontinence (female) (male) (02/24/23) Pelvic muscle wasting (02/24/23) Physical Therapy Treatment Note PT-OP-A Visit Information Start: 12/29/22 09:44 Freq: Status: Active Protocol: Document 02/24/23 09:34 [facility] (Rec: 02/24/23 10:14 [facility] [id number]) Out-Patient Physical Therapy Visit Information Visit Information Visit Type Treatment Note Visit Start Time 09:34 Visit Stop Time 10:30 Total Visit Minutes 41 Visit Number 2 PT-OP-B Current Condition Start: 12/29/22 09:44 Freq: Status: Active Protocol: Document 12/29/22 09:45 [facility] (Rec: 12/29/22 09:59 [facility] [id number]) Current Condition History of Current Condition Onset Date 04/10/22 History of Current Condition Revision of TVT 04/10/22 due to failed sling, she did her follow up in [place] she is not able to bike or swim. She started on estrodial cream to start building the wall of her pelvic floor and per pt it feels like it is helping. Her chief complaints now include irritation if she drinks alcohol she will feel increased pressure and also leakage. Prior Treatments and Tests history of hysterectomy , history of tubal when she was younger and scar tissue was connected to her bowels. Treatment Goals Patient/Caregiver Goals pt wants to learn how to maintain things as she grows older and maybe not have to use the estrogen cream the rest of her life. PT-OP-C Subjective Start: 12/29/22 09:44 Freq: Status: Active Protocol: Document 02/24/23 09:34 [facility] (Rec: 02/24/23 10:14 [facility] [id number]) OP-PT Subjective Patient Comments Patient Comments pt notes she is not doing well she is having leakage and urgency, it doesn't seem to be any difference with what she eats, she just feels that the bladder urgency and leakage are back. PT-OP-I Pelvic Floor Start: 12/30/22 09:42 Freq: Status: Active Protocol: Document 12/29/22 09:45 [facility] (Rec: 12/30/22 09:52 [facility] [id number]) Pelvic Floor Assessment Urine Pelvic Floor Surgery Yes Urinary Symptoms Urge Sensation,Pain Other Urinary Symptoms alcohol increases strong urgency and bladder irritation Voiding Frequency 11-14 Nocturia 1 Pelvic Clock Pelvic Clock 12-3 Atrophy Pelvic Clock 3-6 Atrophy Pelvic Clock 6-9 Atrophy Pelvic Clock 9-12 Atrophy Contraction Ability Voluntary Contraction Weak Voluntary Relaxation Weak Manual Muscle Testing Left 1 Manual Muscle Testing Right 1 Manual Muscle Testing Anterior 1 Manual Muscle Testing Posterior 1 Muscle Endurance (Seconds) 2 Comments Pelvic Floor Comments Ruthy is weak in all chavira of the levator ani and has difficulty with pelvic floor facilitation without using her adductors or hip ER PT-OP-M Strength Start: 12/29/22 09:44 Freq: Status: Active Protocol: Document 12/29/22 09:45 [facility] (Rec: 12/30/22 09:54 [facility] [id number]) Trunk Strength Trunk Manual Muscle Testing Flexion 3 Fair Core Stabilization poor Transverse abdominal strength with difficulty with transverse abdominal recruitment PT-OP-Q Treatments Start: 12/29/22 09:44 Freq: Status: Active Protocol: Document 02/24/23 13:27 [facility] (Rec: 02/24/23 13:30 [facility] [id number]) Therapeutic Exercises Supine Exercises supine ball squeeze with pelvci floor contraction Reps/Minutes x 10 reps Comments hold x 10 seconds with pelvic floor recruitment Sidelying Exercises sidelying hip abduction Reps/Minutes x 10 reps Comments worked on correct form Other Exercises quadruped with opp leg lefts Other Exercise Name TA engagement with opp leg lifts Reps/Minutes x 10 res quadruped TA Reps/Minutes x 10 Manual Therapy Treatment Soft Tissue Mobilization MFR over the suprapubic fascia Mobilization Type Myofascial Release Intensity/Depth Moderate Body Position Supine Comments worked on releasing the fascial tissue surrounding the bladder Self-Care/Home Management Treatment Education Patient Education Home Exercise Program Other Education time was spent today on education regarding home core program. Ruthy is doing a online program and we went through some of her exercises making sure she is doing them correctly and education on avoid going to fast so that she is not pushing down on her bladder. PT-OP-T Assessment and Plan Start: 12/29/22 09:44 Freq: Status: Active Protocol: Document 02/24/23 13:30 [facility] (Rec: 02/24/23 13:33 [facility] [id number]) Physical Therapy Assessment Assessment Summary Assessment Ruthy returns to PT today for her second visit since her evaluation as she has been out of town. She feels her symptoms are not improving. She notes she has not had a lot of time to work on pelvic floor isolations but has been trying a core program online. Those exercise were reviewed today and pe wasd educated in recruiting her inner core first prior to her outer abdominal wall. I also worked on MFR over the bladdder as Ruthy tends to hold tension in this region. She responded well to this. We did not do EMG biofeedback today as pt did not have her sensor with her Physical Therapy Plan Frequency and Duration Frequency of Treatment 1x/Week Duration of treatment (weeks) 12 Plan of Care Start Date 12/29/22 Plan of Care End Date 03/23/23 Therapeutic Interventions Therapeutic Interventions Home Exercise Program, Neuromuscular Re-education, Patient/Caregiver Education, Self-Care/Home Management, Therapeutic Exercises Modalities Biofeedback Next Visit Focus/Plan Next Note Type Treatment Note Next Visit Plan EMG biofeedback next visit for pelvic floor strengthening along with a trial of NMES next visit to help with improved sensation of pelvic floor contractions
--- NOTE | 2023-03-02 10:19 | PT.OTN ---
Current Diagnoses Other specified disorders of muscle (03/02/23) Stress incontinence (female) (male) (03/02/23) Pelvic muscle wasting (03/02/23) Physical Therapy Treatment Note PT-OP-A Visit Information Start: 12/29/22 09:44 Freq: Status: Active Protocol: Document 03/02/23 09:30 [facility] (Rec: 03/02/23 10:18 [facility] [id number]) Out-Patient Physical Therapy Visit Information Visit Information Visit Type Treatment Note Visit Start Time 09:30 Visit Stop Time 10:15 Total Visit Minutes 45 Visit Number 3 PT-OP-B Current Condition Start: 12/29/22 09:44 Freq: Status: Active Protocol: Document 12/29/22 09:45 [facility] (Rec: 12/29/22 09:59 [facility] [id number]) Current Condition History of Current Condition Onset Date 04/10/22 History of Current Condition Revision of TVT 04/10/22 due to failed sling, she did her follow up in [place] she is not able to bike or swim. She started on estrodial cream to start building the wall of her pelvic floor and per pt it feels like it is helping. Her chief complaints now include irritation if she drinks alcohol she will feel increased pressure and also leakage. Prior Treatments and Tests history of hysterectomy , history of tubal when she was younger and scar tissue was connected to her bowels. Treatment Goals Patient/Caregiver Goals pt wants to learn how to maintain things as she grows older and maybe not have to use the estrogen cream the rest of her life. PT-OP-C Subjective Start: 12/29/22 09:44 Freq: Status: Active Protocol: Document 03/02/23 09:30 [facility] (Rec: 03/02/23 10:18 [facility] [id number]) OP-PT Subjective Patient Comments Patient Comments pt notes she forgot her pelvic floor electrode, she is working on trying to pull in her pelvic floor first prior to her outer core PT-OP-I Pelvic Floor Start: 12/30/22 09:42 Freq: Status: Active Protocol: Document 12/29/22 09:45 [facility] (Rec: 12/30/22 09:52 [facility] [id number]) Pelvic Floor Assessment Urine Pelvic Floor Surgery Yes Urinary Symptoms Urge Sensation,Pain Other Urinary Symptoms alcohol increases strong urgency and bladder irritation Voiding Frequency 11-14 Nocturia 1 Pelvic Clock Pelvic Clock 12-3 Atrophy Pelvic Clock 3-6 Atrophy Pelvic Clock 6-9 Atrophy Pelvic Clock 9-12 Atrophy Contraction Ability Voluntary Contraction Weak Voluntary Relaxation Weak Manual Muscle Testing Left 1 Manual Muscle Testing Right 1 Manual Muscle Testing Anterior 1 Manual Muscle Testing Posterior 1 Muscle Endurance (Seconds) 2 Comments Pelvic Floor Comments Ruthy is weak in all chavira of the levator ani and has difficulty with pelvic floor facilitation without using her adductors or hip ER PT-OP-M Strength Start: 12/29/22 09:44 Freq: Status: Active Protocol: Document 12/29/22 09:45 [facility] (Rec: 12/30/22 09:54 [facility] [id number]) Trunk Strength Trunk Manual Muscle Testing Flexion 3 Fair Core Stabilization poor Transverse abdominal strength with difficulty with transverse abdominal recruitment PT-OP-Q Treatments Start: 12/29/22 09:44 Freq: Status: Active Protocol: Document 03/02/23 09:30 [facility] (Rec: 03/02/23 10:18 [facility] [id number]) Therapeutic Exercises Supine Exercises TA with SLR Reps/Minutes x 10 reps TA with march Reps/Minutes x 10 reps Other Exercises cat cow and sidebends Reps/Minutes x 10 each quadruped TA Reps/Minutes x 10 Manual Therapy Treatment Soft Tissue Mobilization MFR over the suprapubic fascia Mobilization Type Myofascial Release Intensity/Depth Moderate Body Position Supine Comments worked on releasing the fascial tissue surrounding the bladder PT-OP-T Assessment and Plan Start: 12/29/22 09:44 Freq: Status: Active Protocol: Document 03/02/23 09:30 [facility] (Rec: 03/02/23 10:18 [facility] [id number]) Physical Therapy Assessment Assessment Summary Assessment pt did not have her electrode with her today so we worked on core work without EMG biofeedback. She is still feeling like she is getting gluteal involvement and she fatigues quickly. She would benefit from NMES next visit Physical Therapy Plan Frequency and Duration Frequency of Treatment 1x/Week Duration of treatment (weeks) 12 Plan of Care Start Date 12/29/22 Plan of Care End Date 03/23/23 Next Visit Focus/Plan Next Note Type Treatment Note Next Visit Plan EMG biofeedback next visit for pelvic floor strengthening along with a trial of NMES next visit to help with improved sensation of pelvic floor contractions
--- NOTE | 2023-03-09 16:00 | PT.OTN ---
Current Diagnoses Other specified disorders of muscle (03/09/23) Stress incontinence (female) (male) (03/09/23) Pelvic muscle wasting (03/09/23) Physical Therapy Treatment Note PT-OP-A Visit Information Start: 12/29/22 09:44 Freq: Status: Active Protocol: Document 03/09/23 15:00 [facility] (Rec: 03/09/23 15:57 [facility] [id number]) Out-Patient Physical Therapy Visit Information Visit Information Visit Type Treatment Note Visit Start Time 15:00 Visit Stop Time 15:45 Total Visit Minutes 45 Visit Number 4 PT-OP-B Current Condition Start: 12/29/22 09:44 Freq: Status: Active Protocol: Document 12/29/22 09:45 [facility] (Rec: 12/29/22 09:59 [facility] [id number]) Current Condition History of Current Condition Onset Date 04/10/22 History of Current Condition Revision of TVT 04/10/22 due to failed sling, she did her follow up in [place] she is not able to bike or swim. She started on estrodial cream to start building the wall of her pelvic floor and per pt it feels like it is helping. Her chief complaints now include irritation if she drinks alcohol she will feel increased pressure and also leakage. Prior Treatments and Tests history of hysterectomy , history of tubal when she was younger and scar tissue was connected to her bowels. Treatment Goals Patient/Caregiver Goals pt wants to learn how to maintain things as she grows older and maybe not have to use the estrogen cream the rest of her life. PT-OP-C Subjective Start: 12/29/22 09:44 Freq: Status: Active Protocol: Document 03/09/23 15:00 [facility] (Rec: 03/09/23 15:09 [facility] [id number]) OP-PT Subjective Patient Comments Patient Comments pt notes she is not doing great and she feels swollen. She sees Dr. Mullen on wednesday PT-OP-I Pelvic Floor Start: 12/30/22 09:42 Freq: Status: Active Protocol: Document 12/29/22 09:45 [facility] (Rec: 12/30/22 09:52 [facility] [id number]) Pelvic Floor Assessment Urine Pelvic Floor Surgery Yes Urinary Symptoms Urge Sensation,Pain Other Urinary Symptoms alcohol increases strong urgency and bladder irritation Voiding Frequency 11-14 Nocturia 1 Pelvic Clock Pelvic Clock 12-3 Atrophy Pelvic Clock 3-6 Atrophy Pelvic Clock 6-9 Atrophy Pelvic Clock 9-12 Atrophy Contraction Ability Voluntary Contraction Weak Voluntary Relaxation Weak Manual Muscle Testing Left 1 Manual Muscle Testing Right 1 Manual Muscle Testing Anterior 1 Manual Muscle Testing Posterior 1 Muscle Endurance (Seconds) 2 Comments Pelvic Floor Comments Ruthy is weak in all chavira of the levator ani and has difficulty with pelvic floor facilitation without using her adductors or hip ER PT-OP-M Strength Start: 12/29/22 09:44 Freq: Status: Active Protocol: Document 12/29/22 09:45 [facility] (Rec: 12/30/22 09:54 [facility] [id number]) Trunk Strength Trunk Manual Muscle Testing Flexion 3 Fair Core Stabilization poor Transverse abdominal strength with difficulty with transverse abdominal recruitment PT-OP-Q Treatments Start: 12/29/22 09:44 Freq: Status: Active Protocol: Document 03/09/23 15:00 [facility] (Rec: 03/09/23 15:57 [facility] [id number]) Therapeutic Exercises Supine Exercises piriformis stretch Reps/Minutes hold 1-2 min happy baby Reps/Minutes hold 1-2 minutes pelvic floor modified squat stretch Reps/Minutes hold 1-2 minutes pelvic floor quick contractions Reps/Minutes x 10 reps pelvic floor long holds Reps/Minutes 4.5 and 10.7 max worked on 10 sec hold and 10 sec relax Comments gave pt 5 sec hold for HEP as she tends to use her gluteals when fatigued Other Exercises rachelle pose Reps/Minutes hold 1-2 min cat cow and sidebends Reps/Minutes x 5 cat cow Self-Care/Home Management Treatment Education Patient Education Home Exercise Program Other Education time was spent on education to fully work on relaxing the pelvic floor in between contractions. Ruthy does have a elevated resting tone on EMG biofeedback and it is difficult to fully relax. I also added in pelvic floor stretches today to help with relaxed awareness of the pelvic floor PT-OP-T Assessment and Plan Start: 12/29/22 09:44 Freq: Status: Active Protocol: Document 03/09/23 15:00 [facility] (Rec: 03/09/23 15:57 [facility] [id number]) Physical Therapy Assessment Goals 3 Impairment pt reports functional limitations of not being able to bike ride, swim or hike due to pelvic discomfort symptoms . Longterm Goal (LTG) Ruthy is able to return to full activity without c/o pelvic discomfort LTG Duration 12 weeks 2 Impairment poor endurance of the pelvic floor with decreased ability to sustain a pelvic floor contraction more than a second or two Longterm Goal (LTG) Ruthy is able to sustain a pelvic floor contraction x 10 seconds in supine LTG Duration 8 weeks 1 Impairment pt has difficulty with facilitation of the pelvic floor and today needed adductor and hip ER assist for any palpable pelvic floor contraction Short Term Goal (STG) with NMES and EMG biofeedback Ruthy is able to isolate her pelvic floor muscles STG Duration 3 weeks Longterm Goal (LTG) Ruthy is able to increase strength of her pelvic floor by 1-2 muscle grades for improved support of the pelvis LTG Duration 12 weeks Assessment Summary Assessment time was spent on education to fully work on relaxing the pelvic floor in between contractions. Ruthy does have a elevated resting tone on EMG biofeedback and it is difficult to fully relax. I also added in pelvic floor stretches today to help with relaxed awareness of the pelvic floor. She did get the sharp right sided pain at the end of treatment today and to me this seems like a muscle spasm. She was told to listen to her body and not to push past the pain and also to add in the stretches to her HEP. She has a follow up with Dr. Mullen on Wednesday Physical Therapy Plan Frequency and Duration Frequency of Treatment 1x/Week Duration of treatment (weeks) 12 Plan of Care Start Date 12/29/22 Plan of Care End Date 03/23/23 Therapeutic Interventions Therapeutic Interventions Home Exercise Program, Neuromuscular Re-education, Patient/Caregiver Education, Self-Care/Home Management, Therapeutic Exercises Modalities Biofeedback Next Visit Focus/Plan Next Note Type Treatment Note Next Visit Plan EMG biofeedback next visit for pelvic floor strengthening along with a trial of NMES next visit to help with improved sensation of pelvic floor contractions
--- NOTE | 2023-03-24 11:47 | PT.OTN ---
Current Diagnoses Other specified disorders of muscle (03/24/23) Stress incontinence (female) (male) (03/24/23) Pelvic muscle wasting (03/24/23) Physical Therapy Treatment Note PT-OP-A Visit Information Start: 12/29/22 09:44 Freq: Status: Active Protocol: Document 03/24/23 09:35 [facility] (Rec: 03/24/23 10:14 [facility] [id number]) Out-Patient Physical Therapy Visit Information Visit Information Visit Type Progress Note Visit Start Time 09:35 Visit Stop Time 10:30 Total Visit Minutes 40 Visit Number 5 PT-OP-B Current Condition Start: 12/29/22 09:44 Freq: Status: Active Protocol: Document 12/29/22 09:45 [facility] (Rec: 12/29/22 09:59 [facility] [id number]) Current Condition History of Current Condition Onset Date 04/10/22 History of Current Condition Revision of TVT 04/10/22 due to failed sling, she did her follow up in [place] she is not able to bike or swim. She started on estrodial cream to start building the wall of her pelvic floor and per pt it feels like it is helping. Her chief complaints now include irritation if she drinks alcohol she will feel increased pressure and also leakage. Prior Treatments and Tests history of hysterectomy , history of tubal when she was younger and scar tissue was connected to her bowels. Treatment Goals Patient/Caregiver Goals pt wants to learn how to maintain things as she grows older and maybe not have to use the estrogen cream the rest of her life. PT-OP-C Subjective Start: 12/29/22 09:44 Freq: Status: Active Protocol: Document 03/24/23 09:35 [facility] (Rec: 03/24/23 10:14 [facility] [id number]) OP-PT Subjective Patient Comments Patient Comments pt saw Dr Albert and everything with her surgery looks good. She will continue on the estrogen cream and a medication for urgency oxybutrin 1 time per day. Ruthy notes she is under increaed stress this week as her mother in law is on hospice. SHe hasn't been eating as good Patient Reported Progress Same PT-OP-I Pelvic Floor Start: 12/30/22 09:42 Freq: Status: Active Protocol: Document 12/29/22 09:45 [facility] (Rec: 12/30/22 09:52 [facility] [id number]) Pelvic Floor Assessment Urine Pelvic Floor Surgery Yes Urinary Symptoms Urge Sensation,Pain Other Urinary Symptoms alcohol increases strong urgency and bladder irritation Voiding Frequency 11-14 Nocturia 1 Pelvic Clock Pelvic Clock 12-3 Atrophy Pelvic Clock 3-6 Atrophy Pelvic Clock 6-9 Atrophy Pelvic Clock 9-12 Atrophy Contraction Ability Voluntary Contraction Weak Voluntary Relaxation Weak Manual Muscle Testing Left 1 Manual Muscle Testing Right 1 Manual Muscle Testing Anterior 1 Manual Muscle Testing Posterior 1 Muscle Endurance (Seconds) 2 Comments Pelvic Floor Comments Ruthy is weak in all chavira of the levator ani and has difficulty with pelvic floor facilitation without using her adductors or hip ER PT-OP-M Strength Start: 12/29/22 09:44 Freq: Status: Active Protocol: Document 12/29/22 09:45 [facility] (Rec: 12/30/22 09:54 [facility] [id number]) Trunk Strength Trunk Manual Muscle Testing Flexion 3 Fair Core Stabilization poor Transverse abdominal strength with difficulty with transverse abdominal recruitment PT-OP-Q Treatments Start: 12/29/22 09:44 Freq: Status: Active Protocol: Document 03/24/23 09:35 [facility] (Rec: 03/24/23 10:14 [facility] [id number]) Therapeutic Exercises Supine Exercises diaphragmatic breathing Reps/Minutes inhale x 4 exhale x 6 x 10 reps pelvic floor quick contractions Reps/Minutes x 10 reps pelvic floor long holds Reps/Minutes average of 9.7 and max of 22 Comments resting tone 5.6 Manual Therapy Treatment Soft Tissue Mobilization MFR over the suprapubic fascia Mobilization Type Myofascial Release Intensity/Depth Moderate Body Position Supine Comments worked on releasing the fascial tissue surrounding the bladder, right sided fascial tightness noted Self-Care/Home Management Treatment Education Patient Education Home Exercise Program Other Education time was spend today reviewing full pelvic floor relaxtion when voiding. Pt was shown how to use double void by raising hands about head then bending forward a few times to fully empty the bladder. SHe has a squatty potty and was encouraged to use it. PT-OP-T Assessment and Plan Start: 12/29/22 09:44 Freq: Status: Active Protocol: Document 03/24/23 09:35 [facility] (Rec: 03/24/23 11:46 [facility] [id number]) Physical Therapy Assessment Goals 3 Impairment pt reports functional limitations of not being able to bike ride, swim or hike due to pelvic discomfort symptoms . Detention Goal (LTG) Ruthy is able to return to full activity without c/o pelvic discomfort Ruthy has been able to hike and walk some, she has not returned to biking or swimming LTG Duration 12 weeks 2 Impairment poor endurance of the pelvic floor with decreased ability to sustain a pelvic floor contraction more than a second or two Detention Goal (LTG) Ruthy is able to sustain a pelvic floor contraction x 10 seconds in supine This is improving and Ruthy is showing progress with endurance holds LTG Duration 8 weeks 1 Impairment pt has difficulty with facilitation of the pelvic floor and today needed adductor and hip ER assist for any palpable pelvic floor contraction Short Term Goal (STG) with NMES and EMG biofeedback Ruthy is able to isolate her pelvic floor muscles Excellent progress STG Duration 3 weeks Detention Goal (LTG) Ruthy is able to increase strength of her pelvic floor by 1-2 muscle grades for improved support of the pelvis Some progress LTG Duration 12 weeks Assessment Summary Assessment Time was spent on MFR techniques and scar tissue release in the suprapubic fascia. Ruthy presents with tightness greater on the right side. We reviewed diaphragmatic breathing and relaxed awareness of the pevic floor. Ruthy still has a elevated tone on EMG biofeedback so I encouraged her to continue with hip openers and stretches for the pelvic floor as well as use her squatty potty to improve full voiding. Physical Therapy Plan Frequency and Duration Frequency of Treatment 1x/Week Duration of treatment (weeks) 12 Plan of Care Start Date 03/24/23 Plan of Care End Date 06/16/23 Therapeutic Interventions Therapeutic Interventions Home Exercise Program, Neuromuscular Re-education, Patient/Caregiver Education, Self-Care/Home Management, Therapeutic Exercises Modalities Biofeedback
--- NOTE | 2023-03-24 11:48 | PT.OPPOC ---
Physical, Occupational & Speech Therapy At [facility] Current Diagnoses Other specified disorders of muscle (03/24/23) Stress incontinence (female) (male) (03/24/23) Pelvic muscle wasting (03/24/23) Visit Care Team Role Provider Type Roseanna Joshi MD Family Provider Physician Primary Care Provider Specialty: Internal Medicine Address: [place], [address] Phone: Email: Samira Albert MD Attending Provider Physician Referring Provider Specialty: Gynecology OFFICE SERVICE COORDINATOR Obstetrics Address: [address] [place] [address], [id number] Email: [email or web address] Plan Of Care PT-OP-T Assessment and Plan Start: 12/29/22 09:44 Freq: Status: Active Protocol: Document 03/24/23 09:35 [facility] (Rec: 03/24/23 11:46 [facility] [id number]) Physical Therapy Assessment Goals 3 Impairment pt reports functional limitations of not being able to bike ride, swim or hike due to pelvic discomfort symptoms . [employer] Goal (LTG) Ruthy is able to return to full activity without c/o pelvic discomfort Ruthy has been able to hike and walk some, she has not returned to biking or swimming LTG Duration 12 weeks 2 Impairment poor endurance of the pelvic floor with decreased ability to sustain a pelvic floor contraction more than a second or two Detention Goal (LTG) Ruthy is able to sustain a pelvic floor contraction x 10 seconds in supine This is improving and Ruthy is showing progress with endurance holds LTG Duration 8 weeks 1 Impairment pt has difficulty with facilitation of the pelvic floor and today needed adductor and hip ER assist for any palpable pelvic floor contraction Short Term Goal (STG) with NMES and EMG biofeedback Ruthy is able to isolate her pelvic floor muscles Excellent progress STG Duration 3 weeks [employer] Goal (LTG) Ruthy is able to increase strength of her pelvic floor by 1-2 muscle grades for improved support of the pelvis Some progress LTG Duration 12 weeks Assessment Summary Assessment Time was spent on MFR techniques and scar tissue release in the suprapubic fascia. Ruthy presents with tightness greater on the right side. We reviewed diaphragmatic breathing and relaxed awareness of the pelvic floor. Ruthy still has a elevated tone on EMG biofeedback so I encouraged her to continue with hip openers and stretches for the pelvic floor as well as use her squatty potty to improve full voiding. Physical Therapy Plan Frequency and Duration Frequency of Treatment 1x/Week Duration of treatment (weeks) 12 Plan of Care Start Date 03/24/23 Plan of Care End Date 06/16/23 Therapeutic Interventions Therapeutic Interventions Home Exercise Program, Neuromuscular Re-education, Patient/Caregiver Education, Self-Care/Home Management, Therapeutic Exercises Modalities Biofeedback Plan of Care Dates Plan of Care Start Date 03/24/23 Plan of Care End Date 06/16/23 Electronically Signed by: Jeannette Alvarez, PT 03/24/23 3217 If you are in agreement with this Plan of Care, please return a signed and dated copy. I have reviewed this Plan of Care and certify that the skilled therapy services above are required to meet the patient?s needs. Physician Signature Date Printed Name and Credentials Clinical Instructor Signature Printed Name and Credentials
--- NOTE | 2023-03-31 13:16 | PT.OTN ---
Current Diagnoses Other specified disorders of muscle (03/31/23) Stress incontinence (female) (male) (03/31/23) Pelvic muscle wasting (03/31/23) Physical Therapy Treatment Note PT-OP-A Visit Information Start: 12/29/22 09:44 Freq: Status: Active Protocol: Document 03/31/23 09:35 [facility] (Rec: 03/31/23 10:17 [facility] [id number]) Out-Patient Physical Therapy Visit Information Visit Information Visit Type Treatment Note Visit Start Time 09:35 Visit Stop Time 10:15 Total Visit Minutes 40 Visit Number 6 PT-OP-B Current Condition Start: 12/29/22 09:44 Freq: Status: Active Protocol: Document 12/29/22 09:45 [facility] (Rec: 12/29/22 09:59 [facility] [id number]) Current Condition History of Current Condition Onset Date 04/10/22 History of Current Condition Revision of TVT 04/10/22 due to failed sling, she did her follow up in [place] she is not able to bike or swim. She started on estrodial cream to start building the wall of her pelvic floor and per pt it feels like it is helping. Her chief complaints now include irritation if she drinks alcohol she will feel increased pressure and also leakage. Prior Treatments and Tests history of hysterectomy , history of tubal when she was younger and scar tissue was connected to her bowels. Treatment Goals Patient/Caregiver Goals pt wants to learn how to maintain things as she grows older and maybe not have to use the estrogen cream the rest of her life. PT-OP-C Subjective Start: 12/29/22 09:44 Freq: Status: Active Protocol: Document 03/31/23 09:35 [facility] (Rec: 03/31/23 10:17 [facility] [id number]) OP-PT Subjective Patient Comments Patient Comments pt notes she has a referal from her primary doctor to go to urogynacology for a follow up visit as she still feels she is not emptying her bladder all the way and still feels swollen in her abdomen Patient Reported Progress Same PT-OP-I Pelvic Floor Start: 12/30/22 09:42 Freq: Status: Active Protocol: Document 12/29/22 09:45 [facility] (Rec: 12/30/22 09:52 [facility] [id number]) Pelvic Floor Assessment Urine Pelvic Floor Surgery Yes Urinary Symptoms Urge Sensation,Pain Other Urinary Symptoms alcohol increases strong urgency and bladder irritation Voiding Frequency 11-14 Nocturia 1 Pelvic Clock Pelvic Clock 12-3 Atrophy Pelvic Clock 3-6 Atrophy Pelvic Clock 6-9 Atrophy Pelvic Clock 9-12 Atrophy Contraction Ability Voluntary Contraction Weak Voluntary Relaxation Weak Manual Muscle Testing Left 1 Manual Muscle Testing Right 1 Manual Muscle Testing Anterior 1 Manual Muscle Testing Posterior 1 Muscle Endurance (Seconds) 2 Comments Pelvic Floor Comments Ruthy is weak in all chavira of the levator ani and has difficulty with pelvic floor facilitation without using her adductors or hip ER PT-OP-M Strength Start: 12/29/22 09:44 Freq: Status: Active Protocol: Document 12/29/22 09:45 [facility] (Rec: 12/30/22 09:54 [facility] [id number]) Trunk Strength Trunk Manual Muscle Testing Flexion 3 Fair Core Stabilization poor Transverse abdominal strength with difficulty with transverse abdominal recruitment PT-OP-Q Treatments Start: 12/29/22 09:44 Freq: Status: Active Protocol: Document 03/31/23 09:35 [facility] (Rec: 03/31/23 10:17 [facility] [id number]) Therapeutic Exercises Supine Exercises pelvic floor quick contractions Reps/Minutes x 10 reps pelvic floor long holds Comments average 6.5 and max of 10.4 uv Manual Therapy Treatment Soft Tissue Mobilization MFR over the suprapubic fascia Mobilization Type Myofascial Release Intensity/Depth Moderate Body Position Supine Comments worked on releasing the fascial tissue surrounding the bladder, right sided fascial tightness noted PT-OP-T Assessment and Plan Start: 12/29/22 09:44 Freq: Status: Active Protocol: Document 03/31/23 09:35 [facility] (Rec: 03/31/23 13:16 [facility] [id number]) Physical Therapy Assessment Assessment Summary Assessment Ruthy noted that she felt a pain at her urethra after she got up from treatment today. She was more elevated with her resting tone today on EMG biofeedback so we talked about working back into her stretches. She has been under a lot of stress with her mother in law on hospice. We talked about this pain most likely being due to muscle spasm in her pelvic floor. Physical Therapy Plan Frequency and Duration Frequency of Treatment 1x/Week Duration of treatment (weeks) 12 Plan of Care Start Date 03/24/23 Plan of Care End Date 06/16/23 Therapeutic Interventions Therapeutic Interventions Home Exercise Program, Neuromuscular Re-education, Patient/Caregiver Education, Self-Care/Home Management, Therapeutic Exercises Modalities Biofeedback Next Visit Focus/Plan Next Note Type Treatment Note Next Visit Plan review all pelvic floor stretches next visit and work on relaxed awareness of the pelvic floor
--- NOTE | 2023-04-22 16:20 | PT.OTN ---
Current Diagnoses Other specified disorders of muscle (04/22/23) Stress incontinence (female) (male) (04/22/23) Pelvic muscle wasting (04/22/23) Physical Therapy Treatment Note PT-OP-A Visit Information Start: 12/29/22 09:44 Freq: Status: Active Protocol: Document 04/22/23 07:59 [facility] (Rec: 04/22/23 08:45 [facility] [id number]) Out-Patient Physical Therapy Visit Information Visit Information Visit Type Treatment Note Visit Start Time 08:00 Visit Stop Time 08:45 Total Visit Minutes 45 Visit Number 7 PT-OP-B Current Condition Start: 12/29/22 09:44 Freq: Status: Active Protocol: Document 12/29/22 09:45 [facility] (Rec: 12/29/22 09:59 [facility] [id number]) Current Condition History of Current Condition Onset Date 04/10/22 History of Current Condition Revision of TVT 04/10/22 due to failed sling, she did her follow up in [place] she is not able to bike or swim. She started on estrodial cream to start building the wall of her pelvic floor and per pt it feels like it is helping. Her chief complaints now include irritation if she drinks alcohol she will feel increased pressure and also leakage. Prior Treatments and Tests history of hysterectomy , history of tubal when she was younger and scar tissue was connected to her bowels. Treatment Goals Patient/Caregiver Goals pt wants to learn how to maintain things as she grows older and maybe not have to use the estrogen cream the rest of her life. PT-OP-C Subjective Start: 12/29/22 09:44 Freq: Status: Active Protocol: Document 04/22/23 07:59 [facility] (Rec: 04/22/23 08:45 [facility] [id number]) OP-PT Subjective Patient Comments Patient Comments pt notes she had to cx last visit as she had the covid vaccine and flu shot together and woke up not feeling good. She has a appt with a urogynacologist in June for a second opinion. Ruthy could feel urethral pain after last visit that lasted 1/2 the day. PT-OP-I Pelvic Floor Start: 12/30/22 09:42 Freq: Status: Active Protocol: Document 12/29/22 09:45 [facility] (Rec: 12/30/22 09:52 [facility] [id number]) Pelvic Floor Assessment Urine Pelvic Floor Surgery Yes Urinary Symptoms Urge Sensation,Pain Other Urinary Symptoms alcohol increases strong urgency and bladder irritation Voiding Frequency 11-14 Nocturia 1 Pelvic Clock Pelvic Clock 12-3 Atrophy Pelvic Clock 3-6 Atrophy Pelvic Clock 6-9 Atrophy Pelvic Clock 9-12 Atrophy Contraction Ability Voluntary Contraction Weak Voluntary Relaxation Weak Manual Muscle Testing Left 1 Manual Muscle Testing Right 1 Manual Muscle Testing Anterior 1 Manual Muscle Testing Posterior 1 Muscle Endurance (Seconds) 2 Comments Pelvic Floor Comments Ruthy is weak in all chavira of the levator ani and has difficulty with pelvic floor facilitation without using her adductors or hip ER PT-OP-M Strength Start: 12/29/22 09:44 Freq: Status: Active Protocol: Document 12/29/22 09:45 [facility] (Rec: 12/30/22 09:54 [facility] [id number]) Trunk Strength Trunk Manual Muscle Testing Flexion 3 Fair Core Stabilization poor Transverse abdominal strength with difficulty with transverse abdominal recruitment PT-OP-Q Treatments Start: 12/29/22 09:44 Freq: Status: Active Protocol: Document 04/22/23 07:59 [facility] (Rec: 04/22/23 08:45 [facility] [id number]) Therapeutic Exercises Supine Exercises pelvic floor modified squat stretch Reps/Minutes hold 1-2 minutes pelvic floor quick contractions Reps/Minutes x 10 reps pelvic floor long holds Reps/Minutes 10 reps Comments average 7.8 max 12.7 supine ball squeeze with pelvci floor contraction Reps/Minutes x 10 reps Comments hold x 10 seconds with pelvic floor recruitment Manual Therapy Treatment Soft Tissue Mobilization MFR over the suprapubic fascia Mobilization Type Myofascial Release Intensity/Depth Moderate Body Position Supine Comments worked on releasing the fascial tissue surrounding the bladder, right sided fascial tightness noted PT-OP-T Assessment and Plan Start: 12/29/22 09:44 Freq: Status: Active Protocol: Document 04/22/23 07:59 [facility] (Rec: 04/22/23 08:45 [facility] [id number]) Physical Therapy Assessment Goals 3 Impairment pt reports functional limitations of not being able to bike ride, swim or hike due to pelvic discomfort symptoms . Catshovel Driver Goal (LTG) Ruthy is able to return to full activity without c/o pelvic discomfort Ruthy has been able to hike and walk some, she has not returned to biking or swimming LTG Duration 12 weeks 2 Impairment poor endurance of the pelvic floor with decreased ability to sustain a pelvic floor contraction more than a second or two Longterm Goal (LTG) Ruthy is able to sustain a pelvic floor contraction x 10 seconds in supine This is improving and Ruthy is showing progress with endurance holds LTG Duration 8 weeks 1 Impairment pt has difficulty with facilitation of the pelvic floor and today needed adductor and hip ER assist for any palpable pelvic floor contraction Short Term Goal (STG) with NMES and EMG biofeedback Ruthy is able to isolate her pelvic floor muscles Excellent progress STG Duration 3 weeks Longterm Goal (LTG) Ruthy is able to increase strength of her pelvic floor by 1-2 muscle grades for improved support of the pelvis Some progress LTG Duration 12 weeks Assessment Summary Assessment ruthy does not have any additional scheduled PT visits prior to her leaving for [place]. If she can get in off our cancel list I will see her again prior to 05/03/23/ She does plan on seeing a pelvic floor PT in [place] where she will be for the winter Physical Therapy Plan Frequency and Duration Frequency of Treatment 1x/Week Duration of treatment (weeks) 12 Plan of Care Start Date 03/24/23 Plan of Care End Date 06/16/23 Next Visit Focus/Plan Next Note Type Treatment Note Next Visit Plan review all pelvic floor stretches next visit and work on relaxed awareness of the pelvic floor
--- NOTE | 2023-07-08 15:05 | PT.OPDS ---
Current Diagnoses Other specified disorders of muscle (04/22/23) Stress incontinence (female) (male) (04/22/23) Pelvic muscle wasting (04/22/23) Visit Care Team Role Provider Type Roseanna Joshi MD Family Provider Physician Primary Care Provider Specialty: Internal Medicine Address: [place], [address] Email: Samira Albert MD Attending Provider Physician Referring Provider Specialty: Gynecology EDUCATIONAL ADVISOR Obstetrics Address: [address] [place] [address], [id number] Email: [email or web address] Visit Number Visit Number 7 Discharge Summary PT-OP-B Current Condition Start: 12/29/22 09:44 Freq: Status: Active Protocol: Document 12/29/22 09:45 [facility] (Rec: 12/29/22 09:59 [facility] [id number]) Current Condition History of Current Condition Onset Date 04/10/22 History of Current Condition Revision of TVT 04/10/22 due to failed sling, she did her follow up in [place] she is not able to bike or swim. She started on estrodial cream to start building the wall of her pelvic floor and per pt it feels like it is helping. Her chief complaints now include irritation if she drinks alcohol she will feel increased pressure and also leakage. Prior Treatments and Tests history of hysterectomy , history of tubal when she was younger and scar tissue was connected to her bowels. Treatment Goals Patient/Caregiver Goals pt wants to learn how to maintain things as she grows older and maybe not have to use the estrogen cream the rest of her life. PT-OP-C Subjective Start: 12/29/22 09:44 Freq: Status: Active Protocol: Document 04/22/23 07:59 [facility] (Rec: 04/22/23 08:45 [facility] [id number]) OP-PT Subjective Patient Comments Patient Comments pt notes she had to cx last visit as she had the covid vaccine and flu shot together and woke up not feeling good. She has a appt with a urogynacologist in June for a second opinion. Jamil could feel urethral pain after last visit that lasted 1/2 the day. PT-OP-I Pelvic Floor Start: 12/30/22 09:42 Freq: Status: Active Protocol: Document 12/29/22 09:45 [facility] (Rec: 12/30/22 09:52 [facility] [id number]) Pelvic Floor Assessment Urine Pelvic Floor Surgery Yes Urinary Symptoms Urge Sensation,Pain Other Urinary Symptoms alcohol increases strong urgency and bladder irritation Voiding Frequency 11-14 Nocturia 1 Pelvic Clock Pelvic Clock 12-3 Atrophy Pelvic Clock 3-6 Atrophy Pelvic Clock 6-9 Atrophy Pelvic Clock 9-12 Atrophy Contraction Ability Voluntary Contraction Weak Voluntary Relaxation Weak Manual Muscle Testing Left 1 Manual Muscle Testing Right 1 Manual Muscle Testing Anterior 1 Manual Muscle Testing Posterior 1 Muscle Endurance (Seconds) 2 Comments Pelvic Floor Comments Jamil is weak in all chavira of the levator ani and has difficulty with pelvic floor facilitation without using her adductors or hip ER PT-OP-M Strength Start: 12/29/22 09:44 Freq: Status: Active Protocol: Document 12/29/22 09:45 [facility] (Rec: 12/30/22 09:54 [facility] [id number]) Trunk Strength Trunk Manual Muscle Testing Flexion 3 Fair Core Stabilization poor Transverse abdominal strength with difficulty with transverse abdominal recruitment PT-OP-T Assessment and Plan Start: 12/29/22 09:44 Freq: Status: Active Protocol: Document 07/08/23 15:04 [facility] (Rec: 07/08/23 15:05 [facility] [id number]) Physical Therapy Assessment Goals 3 Impairment pt reports functional limitations of not being able to bike ride, swim or hike due to pelvic discomfort symptoms . Care Home Goal (LTG) Jamil is able to return to full activity without c/o pelvic discomfort Jamil has been able to hike and walk some, she has not returned to biking or swimming goal not yet met LTG Duration 12 weeks 2 Impairment poor endurance of the pelvic floor with decreased ability to sustain a pelvic floor contraction more than a second or two good progress Early Years Teacher Goal (LTG) Jamil is able to sustain a pelvic floor contraction x 10 seconds in supine This is improving and Jamil is showing progress with endurance holds LTG Duration 8 weeks 1 Impairment pt has difficulty with facilitation of the pelvic floor and today needed adductor and hip ER assist for any palpable pelvic floor contraction Short Term Goal (STG) with NMES and EMG biofeedback Jamil is able to isolate her pelvic floor muscles Excellent progress STG Duration 3 weeks Care Home Goal (LTG) Jamil is able to increase strength of her pelvic floor by 1-2 muscle grades for improved support of the pelvis Some progress LTG Duration 12 weeks Assessment Summary Assessment jamil does not have any additonal scheduled PT visits prior to her leaving for [place]. She does plan on seeing a pelvic floor PT in [place] where she will be for the winter. At this point she will be discharged from PT
== END 2023-07-16 07:46 | disposition home or self-care (01) ==
LOC: PHYS 08:00
PROVIDERS: Family Provider Internal Medicine; PCP Internal Medicine; Referring Provider Obstetrics & Gynecology; Visit Provider Obstetrics & Gynecology
DX: M62.89 Other specified disorders of muscle (principal); N39.3 Stress incontinence (female) (male); N81.84 Pelvic muscle wasting
CPT/HCPCS: 97110; 97140; 97161; 97535

== ENCOUNTER 2023-12-13 13:33 | Emergency (ER) | payer OTHER, SELFPAY ==
[2022-02-12 18:19] VITALS: BMI 27.2
[2023-12-13] VITALS (9 sets, daily range): BP systolic 135–166; BP diastolic 87–92; PULSE 61–81; RESP 16–17; TEMP 36.7; O2SAT 98–100; BMI 27.4
--- NOTE | 2023-12-13 13:47 | DI.CT.S_ITS ---
PROCEDURE: CT HEAD/BRAIN WO CON INDICATIONS: hx of hemaplegic migraines, current symptoms TECHNIQUE: Noncontrast 4.5 mm thick angled axial sections acquired from the foramen magnum to the vertex, with coronal and sagittal reformats. For radiation dose reduction, the following was used: automated exposure control, adjustment of mA and/or kV according to patient size. COMPARISON: [facility], CT, CT STROKE, 02/12/2022, 14:48. FINDINGS: Image quality: Diagnostic. CSF spaces: Basal cisterns are patent. No extra-axial fluid collections. Ventricles are normal in size and shape. Brain: No midline shift. No intracranial masses or hemorrhage. Ribera-white matter interface is normal. Skull and face: Calvarium and visualized facial bones are intact, without suspicious lesions. Sinuses: Previous paranasal sinus surgeries including bilateral medial nasal antral windows and partial ethmoidectomies. Visualized sinuses and mastoids are clear. IMPRESSION: No acute intracranial pathology. Dictated by: Hubert Kaye M.D. on 12/13/2023 at 14:08 Approved by: Hubert Kaye M.D. on 12/13/2023 at 14:25
[2023-12-13] MEDS: KETOROLAC 30 MG/ML VIAL IM (13:49)
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
[2023-12-13] MEDS: SODIUM CHLORIDE 0.9% 1,000 ML 1000 ML IV (14:59)
[2023-12-13] MEDS: PROCHLORPERAZINE 10 MG/2 ML VIAL 5 MG IV (15:02)
[2023-12-13] MEDS: diphenhydrAMINE 50 MG/ML VIAL IV (15:06)
[2023-12-13] MEDS: FAMOTIDINE 20 MG/2 ML VIAL IV (15:06)
[2023-12-13] MEDS: DEXAMETHASONE 10 MG/ML VIAL IV (15:06)
== END 2023-12-13 18:05 | disposition home or self-care (01) ==
PROVIDERS: Emergency Provider Emergency Medicine; Family Provider Internal Medicine; PCP Internal Medicine
DX: G43.909 Migraine, unspecified, not intractable, without status migrainosus (principal)
CPT/HCPCS: 70450; 96372; 96374; 96375; 99284; J0780; J1100; J1200; J1885

== ENCOUNTER → 2024-02-18 13:00 | Outpatient (CLI) | payer OTHER, SELFPAY ==
[2022-02-12 18:19] VITALS: BMI 27.2
--- NOTE | 2024-02-18 13:03 | DI.MRI.S_ITS ---
PROCEDURE: MR CERVICAL SPINE WO CON INDICATIONS: NECK PAIN, ACUTE, PRIOR CERVICAL SURGERY TECHNIQUE: Noncontrast sagittal T1 spin echo and T2 fast spin echo, sagittal STIR, foraminal oblique sagittal T2 fast spin echo, and axial gradient echo or T2 fast spin echo through the cervical spine. COMPARISON: None. FINDINGS: Image quality: Excellent. Alignment and Curvature: There is normal bony alignment. Prior anterior cervical fusion from C5-C7. Bone Marrow: Marrow demonstrates normal overall signal. Spinal Cord: Visualized spinal cord has normal size and signal. No cerebellar tonsillar herniation. There is a syrinx that extends from C5-C7. Paraspinous Soft Tissues: No paravertebral masses. Prevertebral soft tissues are normal in thickness. Intervertebral discs: Multilevel disc desiccation with areas of height loss. C2-C3: No spinal canal stenosis or foraminal stenosis. Bilateral facet arthropathy and uncovertebral joint arthropathy. C3-C4: No spinal canal stenosis. Mild narrowing of the right foramen. The left foramen is patent. Bilateral facet arthropathy and uncovertebral joint arthropathy. C4-C5: Dorsal disc osteophyte complex results in moderate spinal canal stenosis with some abutment of the ventral spinal cord. No foraminal stenosis. Bilateral facet arthropathy and uncovertebral joint arthropathy. C5-C6: Disc osteophyte complex mildly effaces the ventral thecal sac. No foraminal stenosis. There is bilateral facet arthropathy and uncovertebral joint arthropathy. C6-C7: No foraminal stenosis or spinal canal stenosis. Bilateral uncovertebral joint arthropathy and facet arthropathy. C7-T1: No spinal canal stenosis or foraminal stenosis. Bilateral facet arthropathy and uncovertebral joint arthropathy. IMPRESSION: 1. Multilevel degenerative disc disease throughout the cervical spine as described above. The worst level is at C4-C5 which demonstrates moderate spinal canal stenosis with some abutment of the ventral spinal cord. 2. There is a syrinx that extends from C5-C7. Dictated by: Gilberto Ashraf M.D. on 02/21/2024 at 8:28 Approved by: Gilberto Ashraf M.D. on 02/21/2024 at 8:46
== END ==
PROVIDERS: Family Provider Internal Medicine; PCP Internal Medicine; Referring Provider Internal Medicine; Visit Provider Internal Medicine
DX: M50.321 Other cervical disc degeneration at C4-C5 level (principal); M48.02 Spinal stenosis, cervical region; M47.812 Spondylosis without myelopathy or radiculopathy, cervical region; G95.0 Syringomyelia and syringobulbia; Z98.1 Arthrodesis status
CPT/HCPCS: 72141

== ENCOUNTER → 2024-02-21 14:39 | Outpatient (CLI) | payer OTHER, SELFPAY ==
[2022-02-12 18:19] VITALS: BMI 27.2
--- NOTE | 2024-02-21 14:40 | DI.MG.S_ITS ---
BILATERAL DIGITAL SCREENING MAMMOGRAM 3D/2D WITH CAD: 02/21/2024 CLINICAL: Routine screening. Family history of breast cancer. Comparison is made to exams dated: 02/15/2023 mammogram, 02/10/2022 mammogram, and 11/22/2015 mammogram - [facility]. Both breasts are heterogeneously dense, which may obscure small masses (category c / 51-75% glandular tissue). Current study was also evaluated with a Computer Aided Detection (CAD) system. No significant masses, calcifications, or other findings are seen in either breast. There has been no significant interval change. IMPRESSION: NEGATIVE There is no mammographic evidence of malignancy. A 1 year screening mammogram is recommended. Based on the Tyrer Cuzick model (a risk assessment model) the patient's lifetime risk is 16.8% and her 10 year risk is 5.0%. According to the ACR, ACS, and NCCN guidelines, an annual breast MRI exam along with mammogram is recommended if the patient's lifetime risk is 20% or greater. This exam was interpreted at Station ID: [id number]. NOTE: For mammograms, a report in lay terms will be sent to the patient. Approximately 15% of breast malignancies will not be visualized mammographically. In the management of a palpable breast mass, a negative mammogram must not discourage biopsy of a clinically suspicious lesion. Electronically Signed By: Bekah bailey/monica:02/21/2024 18:16:13 letter sent: Normal Exam ACR BI-RADS Category 1: Negative [id number]
== END ==
PROVIDERS: Family Provider Internal Medicine; PCP Internal Medicine; Referring Provider Internal Medicine; Visit Provider Internal Medicine
DX: Z12.31 Encounter for screening mammogram for malignant neoplasm of breast (principal); Z80.3 Family history of malignant neoplasm of breast; R92.333 Mammographic heterogeneous density, bilateral breasts
CPT/HCPCS: 77063; 77067

== ENCOUNTER 2024-02-23 10:30 | Outpatient (RCR) | payer OTHER, SELFPAY ==
[2022-02-12 18:19] VITALS: BMI 27.2
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
--- NOTE | 2023-12-08 15:06 | PT.OPPOC ---
Physical, Occupational & Speech Therapy At [facility] Current Diagnoses Cervicalgia (12/08/23) Visit Care Team Role Provider Type Roseanna Joshi MD Attending Provider Physician Family Provider Primary Care Provider Referring Provider Specialty: Internal Medicine Address: [place], [address] Email: Plan Of Care PT-OP-T Assessment and Plan Start: 12/07/23 12:08 Freq: Status: Active Protocol: Document 12/08/23 09:00 MB (Rec: 12/08/23 09:42 MB [id number]) Physical Therapy Assessment Rehab Potential Rehabilitation Potential Fair Evaluation Complexity Number of Personal Factors/Comorbidities 1-2 Number of Body Systems Impaired 1-2 Clinical Presentation at Evaluation Evolving Impairments Impairments Activity Tolerance,Balance, Functional Activities, Functional Mobility,Pain, Posture,ROM,Sensation,Soft Tissue Mobility,Strength Goals 3 Impairment HDI reflects 82% disability Impairment Blank space Alf Goal (LTG) Pt will present with HDI score reflecting no more than 50% disability to reflect improved OLIVERA pain, quality of life and function. LTG Duration 8 weeks 2 Impairment Decreased cervical rotation and SB Impairment Blank space Boatwright Goal (LTG) Pt will present with equal and non-painful cervical rotation and SB to improve scanning with gait, driving and daily functional tasks. LTG Duration 8 weeks 1 Impairment Lack of HEP Impairment Blank space Alf Goal (LTG) Pt will perform progressive HEP with I including breathing , flexibility, gentle core and balance exercises to improve pain and quality of life. LTG Duration 8 weeks Assessment Summary Assessment Pt is a 53 y/o female presenting with complex medical history including cervical spine surgery, HAs, TMD, pelvic surgery and reports of possible underlying rheumatological disease. Pt reports daily migraines since June 2023 and decreased tolerance to medications described. She has nausea and vomiting with HAs. During history taking, pt states that she thought her PT evaluation was at 0830 and not 0900 and she has another appointment at 0930. As a result, PT evaluation was short at around 25'. Pt presents with postural changes, decreased AROM in cervical spine and reports of B finger tingling that she thinks is Raynauld's and she is awaiting rhematology consult. Pt will benefit from PT to improve posture, relaxation (breathing ), flexibility, core strength and balance. Barriers include severe pain and headaches and possibly compliance with PT appointments/time. Physical Therapy Plan Frequency and Duration Frequency of Treatment 1-2x/wk Duration of treatment (weeks) 8 Plan of Care Start Date 12/08/23 Plan of Care End Date 02/07/24 Therapeutic Interventions Therapeutic Interventions Balance Training,Canalithic Repositioning,Home Exercise Program,Joint Mobilizations, Manual Therapy,Neuromuscular Re-education,Patient/Caregiver Education,Self-Care/Home Management,Sensory Integration ,Soft Tissue Mobilization, Taping,Therapeutic Activities, Therapeutic Exercises, Vestibular Rehabilitation Modalities Cold Pack/Ice Massage,Electric Stimulation,Hot Packs, Ultrasound Next Visit Focus/Plan Next Note Type Treatment Note Next Visit Plan Buteyko breathing OLIVERA self-care ed and handouts, sleeping hygiene handout Initiate gentle cervical and thoracic mobility Plan of Care Dates Plan of Care Start Date 12/08/23 Plan of Care End Date 02/07/24 Electronically Signed by: Leda Cazares, PT 12/08/23 4071 If you are in agreement with this Plan of Care, please return a signed and dated copy. I have reviewed this Plan of Care and certify that the skilled therapy services above are required to meet the patient?s needs. Physician Signature Date Printed Name and Credentials Clinical Instructor Signature Printed Name and Credentials
--- NOTE | 2023-12-13 08:12 | PT.OTN ---
Current Diagnoses Cervicalgia (12/13/23) Physical Therapy Treatment Note PT-OP-A Visit Information Start: 12/07/23 12:08 Freq: Status: Active Protocol: Document 12/13/23 07:31 MB (Rec: 12/13/23 08:11 MB [id number]) Out-Patient Physical Therapy Visit Information Visit Information Visit Type Treatment Note Visit Note [employer] 08/21 before progress noted Visit Start Time 07:31 Visit Stop Time 08:11 Visit Number 2 Number of AIRPORT SALES AGENT Visits 0 Evaluation Information Evaluation Date 12/08/23 PT-OP-B Current Condition Start: 12/07/23 12:08 Freq: Status: Active Protocol: Document 12/08/23 09:00 MB (Rec: 12/08/23 09:16 MB [id number]) Current Condition History of Current Condition Onset Date June 2023 Current Complaints Everyday headaches since June History of Current Condition Pt sees a neurologist for HAs and she was put on daily medications for HAs but it made her too tired to drive. She stopped taking the medication. She thinks that injections are next. 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 Screen time is the worst. She has right greater than left TMD. She saw an oral surgeon in [facility] and she got a two new night guards. She has less popping. She has bone on bone right TMD. Her RA factor is high and she has issues with Raynaud's. [place] came back up to [place]10[place]23 from [place] and she feels that the weather bothers her a lot. Pt had full hysterectomy and bladder sling in the past three years. ENT in [facility] did not think it was sinus. Pt gets a neck x- ray every year and she had C6- 7 disc replacement six years ago. She is taking medication to help her sleep at night and she has prescriptions from TMD and neurologist providers. She takes BP meds at night. She threw up all three long weekend days. Treatment Goals Patient/Caregiver Goals To decrease the headaches to function PT-OP-C Subjective Start: 12/07/23 12:08 Freq: Status: Active Protocol: Document 12/13/23 07:31 MB (Rec: 12/13/23 08:11 MB [id number]) OP-PT Subjective Patient Comments Patient Comments Things have been pretty rough since the evaluation. She asks if it is a muscle above her right ear and she did have injection for TMD in the area in the past. Pt is starting to feel down d/t all the headaches. PT-OP-J Posture/Palpation/Skin Start: 12/07/23 12:08 Freq: Status: Active Protocol: Document 12/08/23 09:00 MB (Rec: 12/08/23 09:29 MB [id number]) Posture Evaluation Comments Posture Comments Standing posture: forward head , rounded shoulders, increased sway back, left iliac crest higher than right. PT-OP-K Range of Motion Start: 12/07/23 12:08 Freq: Status: Active Protocol: Document 12/08/23 09:00 MB (Rec: 12/08/23 09:42 MB [id number]) Cervical Spine Range of Motion Cervical Spine Active Testing Position Standing Flexion 30 Extension 20 Rotation Left 60 Rotation Right 70 Lateral Flexion Left 5 Lateral Flexion Right 15 PT-OP-M Strength Start: 12/07/23 12:08 Freq: Status: Active Protocol: Document 12/08/23 09:00 MB (Rec: 12/08/23 09:42 MB [id number]) Shoulder Strength Shoulder Manual Muscle Testing Right Flexion 5 Normal Abduction (C5) 5 Normal Left Flexion 5 Normal Abduction (C5) 5 Normal Elbow/Forearm Strength Elbow and Forearm Manual Muscle Testing Left Flexion (C6) 5 Normal Extension (C7) 5 Normal Right Flexion (C6) 5 Normal Extension (C7) 5 Normal PT-OP-Q Treatments Start: 12/07/23 12:08 Freq: Status: Active Protocol: Document 12/13/23 07:31 MB (Rec: 12/13/23 08:11 MB [id number]) Manual Therapy Treatment Other Other Manual Treatments Pt hook lying with legs supported and pillow support under head: suboccipital release, B upper traps STM, B cervical PA mobs grade II-III, STM left infraspinatus, B first rib mobs, C SCM STM and more tension on the right, B temporalis STM, fascial release over right ear for tension, B pect stretch Self-Care/Home Management Treatment Education Patient Education Body Mechanics,Pain Management ,Posture Caregiver Education Headache self-care and sleep hygiene handouts and discussion to help with headaches, use of ice, benefits of yellow glasses for blue light reduction, benefits of electrolytes and going for gentle walks, self STM temporalis and SCM PT-OP-T Assessment and Plan Start: 12/07/23 12:08 Freq: Status: Active Protocol: Document 12/13/23 07:31 MB (Rec: 12/13/23 08:11 MB [id number]) Physical Therapy Assessment Rehab Potential Rehabilitation Potential Fair Evaluation Complexity Number of Personal Factors/Comorbidities 1-2 Number of Body Systems Impaired 1-2 Clinical Presentation at Evaluation Evolving Impairments Impairments Activity Tolerance,Balance, Functional Activities, Functional Mobility,Pain, Posture,ROM,Sensation,Soft Tissue Mobility,Strength Goals 3 Impairment HDI reflects 82% disability Impairment Blank space Quality Engineer Goal (LTG) Pt will present with HDI score reflecting no more than 50% disability to reflect improved OLIVERA pain, quality of life and function. LTG Duration 8 weeks 2 Impairment Decreased cervical rotation and SB Impairment Blank space Fpc Goal (LTG) Pt will present with equal and non-painful cervical rotation and SB to improve scanning with gait, driving and daily functional tasks. LTG Duration 8 weeks 1 Impairment Lack of HEP Impairment Blank space Fpc Goal (LTG) Pt will perform progressive HEP with I including breathing , flexibility, gentle core and balance exercises to improve pain and quality of life. LTG Duration 8 weeks Assessment Summary Assessment Initiated education and manual work today and pt's right neck and musculature are much tighter than the left. Con't PT efforts and consider Buteyko breathing next treatment date. Physical Therapy Plan Frequency and Duration Frequency of Treatment 1-2x/wk Duration of treatment (weeks) 8 Plan of Care Start Date 12/08/23 Plan of Care End Date 02/07/24 Therapeutic Interventions Therapeutic Interventions Balance Training,Canalithic Repositioning,Home Exercise Program,Joint Mobilizations, Manual Therapy,Neuromuscular Re-education,Patient/Caregiver Education,Self-Care/Home Management,Sensory Integration ,Soft Tissue Mobilization, Taping,Therapeutic Activities, Therapeutic Exercises, Vestibular Rehabilitation Modalities Cold Pack/Ice Massage,Electric Stimulation,Hot Packs, Ultrasound Next Visit Focus/Plan Next Note Type Treatment Note Next Visit Plan Buteyko breathing Initiate gentle cervical and thoracic mobility: pect stretch, etc Ongoing manual work
--- NOTE | 2023-12-15 08:57 | PT.OTN ---
Current Diagnoses Cervicalgia (12/15/23) Physical Therapy Treatment Note PT-OP-A Visit Information Start: 12/07/23 12:08 Freq: Status: Active Protocol: Document 12/15/23 08:15 MB (Rec: 12/15/23 08:57 MB [id number]) Out-Patient Physical Therapy Visit Information Visit Information Visit Type Treatment Note Visit Note [employer] 3/10 before progress note Visit Start Time 08:15 Visit Stop Time 08:55 Visit Number 3 Number of WATER SOFTENER SERVICER AND INSTALLER Visits 0 Evaluation Information Evaluation Date 12/08/23 PT-OP-B Current Condition Start: 12/07/23 12:08 Freq: Status: Active Protocol: Document 12/08/23 09:00 MB (Rec: 12/08/23 09:16 MB [id number]) Current Condition History of Current Condition Onset Date June 2023 Current Complaints Everyday headaches since June History of Current Condition Pt sees a neurologist for HAs and she was put on daily medications for HAs but it made her too tired to drive. She stopped taking the medication. She thinks that injections are next. 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 Screen time is the worst. She has right greater than left TMD. She saw [place] [facility] [place] got a two new night guards. She has less popping. She has bone on bone right TMD. Her RA factor is high and she has issues with Raynaud's. She came back up to [place] 11/10/23 from [place] and she feels that the weather bothers her a lot. Pt had full hysterectomy and bladder sling in the past three years. [place]NT in [place] [facility] [place] not think it was [place]. Pt gets a neck x- ray every year and she had C6- 7 disc replacement six years ago. She is taking medication to help her sleep at night and she has prescriptions from TMD and neurologist providers. She takes BP meds at night. She threw up all three long weekend days. Treatment Goals Patient/Caregiver Goals To decrease the headaches to function PT-OP-C Subjective Start: 12/07/23 12:08 Freq: Status: Active Protocol: Document 12/15/23 08:15 MB (Rec: 12/15/23 08:57 MB [id number]) OP-PT Subjective Patient Comments Patient Comments After PT treatment, pt called neurology office and they told her to go get the Tordal injection and cocktail. She went to the walk-in clinic and then they wheeled her to the ER where she was treated with this. She slept after treatment. Head CT was negative. Yesterday was the best day yet and she sees the neurologist today to talk about self-injectables. Since working with PT Wednesday, her neck is moving more. The ED doc put her on 500 mg of Naproxen twice a day. PT-OP-J Posture/Palpation/Skin Start: 12/07/23 12:08 Freq: Status: Active Protocol: Document 12/08/23 09:00 MB (Rec: 12/08/23 09:29 MB [id number]) Posture Evaluation Comments Posture Comments Standing posture: forward head , rounded shoulders, increased sway back, left iliac crest higher than right. PT-OP-K Range of Motion Start: 12/07/23 12:08 Freq: Status: Active Protocol: Document 12/08/23 09:00 MB (Rec: 12/08/23 09:42 MB [id number]) Cervical Spine Range of Motion Cervical Spine Active Testing Position Standing Flexion 30 Extension 20 Rotation Left 60 Rotation Right 70 Lateral Flexion Left 5 Lateral Flexion Right 15 PT-OP-M Strength Start: 12/07/23 12:08 Freq: Status: Active Protocol: Document 12/08/23 09:00 MB (Rec: 12/08/23 09:42 MB [id number]) Shoulder Strength Shoulder Manual Muscle Testing Right Flexion 5 Normal Abduction (C5) 5 Normal Left Flexion 5 Normal Abduction (C5) 5 Normal Elbow/Forearm Strength Elbow and Forearm Manual Muscle Testing Left Flexion (C6) 5 Normal Extension (C7) 5 Normal Right Flexion (C6) 5 Normal Extension (C7) 5 Normal PT-OP-Q Treatments Start: 12/07/23 12:08 Freq: Status: Active Protocol: Document 12/15/23 08:15 MB (Rec: 12/15/23 08:57 MB [id number]) Therapeutic Exercises Supine Exercises Buteyko breathing Comments Ed in technique and performed today and O2 sats 98% and HR 59 BPM before tx Neuro Re-Education Treatment Other Activities Diaphragm and nasal breathing Comments Educated pt in diaphragm and nasal breathing to improve parasympathetic response, relaxation, and pt performs after several reps of nasal breathing today PT-OP-T Assessment and Plan Start: 12/07/23 12:08 Freq: Status: Active Protocol: Document 12/15/23 08:15 MB (Rec: 12/15/23 08:57 MB [id number]) Physical Therapy Assessment Rehab Potential Rehabilitation Potential Fair Evaluation Complexity Number of Personal Factors/Comorbidities 1-2 Number of Body Systems Impaired 1-2 Clinical Presentation at Evaluation Evolving Impairments Impairments Activity Tolerance,Balance, Functional Activities, Functional Mobility,Pain, Posture,ROM,Sensation,Soft Tissue Mobility,Strength Goals 3 Impairment HDI reflects 82% disability Impairment Blank space Correction Goal (LTG) Pt will present with HDI score reflecting no more than 50% disability to reflect improved OLIVERA pain, quality of life and function. LTG Duration 8 weeks 2 Impairment Decreased cervical rotation and SB Impairment Blank space Correction Goal (LTG) Pt will present with equal and non-painful cervical rotation and SB to improve scanning with gait, driving and daily functional tasks. LTG Duration 8 weeks 1 Impairment Lack of HEP Impairment Blank space Handstitching Machine Collar Feller Goal (LTG) Pt will perform progressive HEP with I including breathing , flexibility, gentle core and balance exercises to improve pain and quality of life. LTG Duration 8 weeks Assessment Summary Assessment Pt to see neurologist today after walk-in clinic and ED visit. She felt a lot better after medications and she feels PT is helpful. Buteyko breathing with head and legs supported. 1st rep: PT cues pt to inhale after 10 sec and O2 sats are 99% and HR is 59 BPM . 2nd rep: 19 sec and vitals the same; 3rd rep: 20 sec and sats 99% and HR 57 BPM; 4th rep: 30 sec and pt breathes through mouth after hold; 5th rep: 25 sec and sats 99% and HR 54 BPM. Pt's breaths do have tendency to be less soft with heavy movement of diaphragm with breaths and cues to soften. Extensive education about tension seeping out with passive exhaling. Physical Therapy Plan Frequency and Duration Frequency of Treatment 1-2x/wk Duration of treatment (weeks) 8 Plan of Care Start Date 12/08/23 Plan of Care End Date 02/07/24 Therapeutic Interventions Therapeutic Interventions Balance Training,Canalithic Repositioning,Home Exercise Program,Joint Mobilizations, Manual Therapy,Neuromuscular Re-education,Patient/Caregiver Education,Self-Care/Home Management,Sensory Integration ,Soft Tissue Mobilization, Taping,Therapeutic Activities, Therapeutic Exercises, Vestibular Rehabilitation Modalities Cold Pack/Ice Massage,Electric Stimulation,Hot Packs, Ultrasound Next Visit Focus/Plan Next Note Type Treatment Note Next Visit Plan Consider tape over mouth with manual work Initiate gentle cervical and thoracic mobility: pect stretch, etc Ongoing manual work
--- NOTE | 2023-12-20 08:02 | PT-OP ANOTE ---
Pt no shows to appointment. PT calls pt and leaves message on voicemail. Will d/c PT if there is a second no show. Did ask pt to call back.
--- NOTE | 2023-12-22 08:12 | PT.OTN ---
Current Diagnoses Cervicalgia (12/22/23) Physical Therapy Treatment Note PT-OP-A Visit Information Start: 12/07/23 12:08 Freq: Status: Active Protocol: Document 12/22/23 07:29 MB (Rec: 12/22/23 08:12 MB [id number]) Out-Patient Physical Therapy Visit Information Visit Information Visit Type Treatment Note Visit Note [employer] 4/10 before progress note Visit Start Time 07:29 Visit Stop Time 08:09 Visit Number 4 Number of ALCOHOLISM WORKER Visits 0 Evaluation Information Evaluation Date 12/08/23 PT-OP-B Current Condition Start: 12/07/23 12:08 Freq: Status: Active Protocol: Document 12/08/23 09:00 MB (Rec: 12/08/23 09:16 MB [id number]) Current Condition History of Current Condition Onset Date June 2023 Current Complaints Everyday headaches since June History of Current Condition Pt sees a neurologist for HAs and she was put on daily medications for HAs but it made her too tired to drive. She stopped taking the medication. She thinks that injections are next. 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 Screen time is the worst. She has right greater than left TMD. [place] [facility] [place] two new night guards. She has less popping. She has bone on bone right TMD. Her RA factor is high and she has issues with Raynaud's. She came back up to [place] 11/10/23 from [place] and she feels that the weather bothers her a lot. Pt had full hysterectomy and bladder sling in the past three years. [place] [facility] [place]. Pt gets a neck x- ray every year and she had C6- 7 disc replacement six years ago. She is taking medication to help her sleep at night and she has prescriptions from TMD and neurologist providers. She takes BP meds at night. She threw up all three long weekend days. Treatment Goals Patient/Caregiver Goals To decrease the headaches to function PT-OP-C Subjective Start: 12/07/23 12:08 Freq: Status: Active Protocol: Document 12/22/23 07:29 MB (Rec: 12/22/23 08:12 MB [id number]) OP-PT Subjective Patient Comments Patient Comments Pt is sorry about not showing for her appointment and she called and talked with the front office after PT message. Pt is working on diet, she is taking new injectable migraine medication, started massage therapy and is working on breathing. Massage therapy noticed her shoulders are elevated and forward. PT-OP-J Posture/Palpation/Skin Start: 12/07/23 12:08 Freq: Status: Active Protocol: Document 12/08/23 09:00 MB (Rec: 12/08/23 09:29 MB [id number]) Posture Evaluation Comments Posture Comments Standing posture: forward head , rounded shoulders, increased sway back, left iliac crest higher than right. PT-OP-K Range of Motion Start: 12/07/23 12:08 Freq: Status: Active Protocol: Document 12/08/23 09:00 MB (Rec: 12/08/23 09:42 MB [id number]) Cervical Spine Range of Motion Cervical Spine Active Testing Position Standing Flexion 30 Extension 20 Rotation Left 60 Rotation Right 70 Lateral Flexion Left 5 Lateral Flexion Right 15 PT-OP-M Strength Start: 12/07/23 12:08 Freq: Status: Active Protocol: Document 12/08/23 09:00 MB (Rec: 12/08/23 09:42 MB [id number]) Shoulder Strength Shoulder Manual Muscle Testing Right Flexion 5 Normal Abduction (C5) 5 Normal Left Flexion 5 Normal Abduction (C5) 5 Normal Elbow/Forearm Strength Elbow and Forearm Manual Muscle Testing Left Flexion (C6) 5 Normal Extension (C7) 5 Normal Right Flexion (C6) 5 Normal Extension (C7) 5 Normal PT-OP-Q Treatments Start: 12/07/23 12:08 Freq: Status: Active Protocol: Document 12/22/23 07:29 MB (Rec: 12/22/23 08:12 MB [id number]) Therapeutic Exercises Supine Exercises Foam roller exercises Equipment Used 6 Reps/Minutes 10 of AROM exercises Comments Flexion, Ts, 1/2Xs, pect stretch x30 sec Manual Therapy Treatment Other Other Manual Treatments Pt hook lying with head and legs supported with pillows: STM B upper traps, left first rib isometric mob, sidelying B rib recoil to loosen paraspinals, QL and ribs PT-OP-T Assessment and Plan Start: 12/07/23 12:08 Freq: Status: Active Protocol: Document 12/22/23 07:29 MB (Rec: 12/22/23 08:12 MB [id number]) Physical Therapy Assessment Rehab Potential Rehabilitation Potential Fair Evaluation Complexity Number of Personal Factors/Comorbidities 1-2 Number of Body Systems Impaired 1-2 Clinical Presentation at Evaluation Evolving Impairments Impairments Activity Tolerance,Balance, Functional Activities, Functional Mobility,Pain, Posture,ROM,Sensation,Soft Tissue Mobility,Strength Goals 3 Impairment HDI reflects 82% disability Impairment Blank space Assisted Goal (LTG) Pt will present with HDI score reflecting no more than 50% disability to reflect improved OLIVERA pain, quality of life and function. LTG Duration 8 weeks 2 Impairment Decreased cervical rotation and SB Impairment Blank space Mail Machine Operator Goal (LTG) Pt will present with equal and non-painful cervical rotation and SB to improve scanning with gait, driving and daily functional tasks. LTG Duration 8 weeks 1 Impairment Lack of HEP Impairment Blank space Mail Machine Operator Goal (LTG) Pt will perform progressive HEP with I including breathing , flexibility, gentle core and balance exercises to improve pain and quality of life. LTG Duration 8 weeks Assessment Summary Assessment Initiated thoracic and shoulder flexibility exercises today with head supported on foam roller. Limited cervical ROM d/t surgery. Physical Therapy Plan Frequency and Duration Frequency of Treatment 1-2x/wk Duration of treatment (weeks) 8 Plan of Care Start Date 12/08/23 Plan of Care End Date 02/07/24 Therapeutic Interventions Therapeutic Interventions Balance Training,Canalithic Repositioning,Home Exercise Program,Joint Mobilizations, Manual Therapy,Neuromuscular Re-education,Patient/Caregiver Education,Self-Care/Home Management,Sensory Integration ,Soft Tissue Mobilization, Taping,Therapeutic Activities, Therapeutic Exercises, Vestibular Rehabilitation Modalities Cold Pack/Ice Massage,Electric Stimulation,Hot Packs, Ultrasound Next Visit Focus/Plan Next Note Type Treatment Note Next Visit Plan Ongoing manual work and progress exercises for posture , thoracic flexibility, cervical spine, strengthening for core and intrascapular muscles, consider band added to shoulder exercises. Consider working on miguel coates collhoa
--- NOTE | 2023-12-27 08:17 | PT.OTN ---
Current Diagnoses Cervicalgia (12/27/23) Physical Therapy Treatment Note PT-OP-A Visit Information Start: 12/07/23 12:08 Freq: Status: Active Protocol: Document 12/27/23 07:33 MB (Rec: 12/27/23 08:16 MB [id number]) Out-Patient Physical Therapy Visit Information Visit Information Visit Type Treatment Note Visit Note [employer] 5/10 before progress note Or Progress note before Visit Start Time 07:33 Visit Stop Time 08:13 Visit Number 5 Number of RETAIL SALES CONSULTANT Visits 0 Evaluation Information Evaluation Date 12/08/23 PT-OP-B Current Condition Start: 12/07/23 12:08 Freq: Status: Active Protocol: Document 12/08/23 09:00 MB (Rec: 12/08/23 09:16 MB [id number]) Current Condition History of Current Condition Onset Date June 2023 Current Complaints Everyday headaches since June History of Current Condition Pt sees a neurologist for HAs and she was put on daily medications for HAs but it made her too tired to drive. She stopped taking the medication. She thinks that injections are next. 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 She has right greater than left TMD. [place] [facility] [place] new night guards. She has less popping. She has bone on bone right TMD. Her RA factor is high and she has issues with Raynaud's. She came back up to [place] 11/10/23 from [place] and she feels that the weather bothers her a lot. Pt had full hysterectomy and bladder sling in the past three years. [place] [facility] [place]. Pt gets a neck x- ray every year and she had C6- 7 disc replacement six years ago. She is taking medication to help her sleep at night and she has prescriptions from TMD and neurologist providers. She takes BP meds at night. She threw up all three long weekend days. Treatment Goals Patient/Caregiver Goals To decrease the headaches to function PT-OP-C Subjective Start: 12/07/23 12:08 Freq: Status: Active Protocol: Document 12/27/23 07:33 MB (Rec: 12/27/23 08:16 MB [id number]) OP-PT Subjective Patient Comments Patient Comments Pt has not had any debilitating HAs and she was able to clean her house. PT-OP-J Posture/Palpation/Skin Start: 12/07/23 12:08 Freq: Status: Active Protocol: Document 12/08/23 09:00 MB (Rec: 12/08/23 09:29 MB [id number]) Posture Evaluation Comments Posture Comments Standing posture: forward head , rounded shoulders, increased sway back, left iliac crest higher than right. PT-OP-K Range of Motion Start: 12/07/23 12:08 Freq: Status: Active Protocol: Document 12/08/23 09:00 MB (Rec: 12/08/23 09:42 MB [id number]) Cervical Spine Range of Motion Cervical Spine Active Testing Position Standing Flexion 30 Extension 20 Rotation Left 60 Rotation Right 70 Lateral Flexion Left 5 Lateral Flexion Right 15 PT-OP-M Strength Start: 12/07/23 12:08 Freq: Status: Active Protocol: Document 12/08/23 09:00 MB (Rec: 12/08/23 09:42 MB [id number]) Shoulder Strength Shoulder Manual Muscle Testing Right Flexion 5 Normal Abduction (C5) 5 Normal Left Flexion 5 Normal Abduction (C5) 5 Normal Elbow/Forearm Strength Elbow and Forearm Manual Muscle Testing Left Flexion (C6) 5 Normal Extension (C7) 5 Normal Right Flexion (C6) 5 Normal Extension (C7) 5 Normal PT-OP-Q Treatments Start: 12/07/23 12:08 Freq: Status: Active Protocol: Document 12/27/23 07:33 MB (Rec: 12/27/23 08:16 MB [id number]) Therapeutic Exercises Standing Exercises Racquet ball massage Comments Intrascapular muscles Modified cat cow Comments Multifidi, wagging, modfied cat cow Manual Therapy Treatment Other Other Manual Treatments Pt hook lying with head and legs supported and pillows: STM B upper traps, suboccipital release, right first rib isometric mob, PA cervical mobs level 2-3, longus colli MWM B and TrP pressure, STM temporalis right PT-OP-T Assessment and Plan Start: 12/07/23 12:08 Freq: Status: Active Protocol: Document 12/27/23 07:33 MB (Rec: 12/27/23 08:16 MB [id number]) Physical Therapy Assessment Rehab Potential Rehabilitation Potential Fair Evaluation Complexity Number of Personal Factors/Comorbidities 1-2 Number of Body Systems Impaired 1-2 Clinical Presentation at Evaluation Evolving Impairments Impairments Activity Tolerance,Balance, Functional Activities, Functional Mobility,Pain, Posture,ROM,Sensation,Soft Tissue Mobility,Strength Goals 3 Impairment HDI reflects 82% disability Impairment Blank space Raise Drill Operator Goal (LTG) Pt will present with HDI score reflecting no more than 50% disability to reflect improved OLIVERA pain, quality of life and function. LTG Duration 8 weeks 2 Impairment Decreased cervical rotation and SB Impairment Blank space Alf Goal (LTG) Pt will present with equal and non-painful cervical rotation and SB to improve scanning with gait, driving and daily functional tasks. LTG Duration 8 weeks 1 Impairment Lack of HEP Impairment Blank space Raise Drill Operator Goal (LTG) Pt will perform progressive HEP with I including breathing , flexibility, gentle core and balance exercises to improve pain and quality of life. LTG Duration 8 weeks Assessment Summary Assessment Right TMD and neck have increased tension. Right longus colli is tighter. Con't progression. Ed pt in use of tape and that prison guard may be making her clinch more, increased pillow support for side sleeping. Physical Therapy Plan Frequency and Duration Frequency of Treatment 1-2x/wk Duration of treatment (weeks) 8 Plan of Care Start Date 12/08/23 Plan of Care End Date 02/07/24 Therapeutic Interventions Therapeutic Interventions Balance Training,Canalithic Repositioning,Home Exercise Program,Joint Mobilizations, Manual Therapy,Neuromuscular Re-education,Patient/Caregiver Education,Self-Care/Home Management,Sensory Integration ,Soft Tissue Mobilization, Taping,Therapeutic Activities, Therapeutic Exercises, Vestibular Rehabilitation Modalities Cold Pack/Ice Massage,Electric Stimulation,Hot Packs, Ultrasound Next Visit Focus/Plan Next Note Type Treatment Note Next Visit Plan Similar: ongoing manual work and progress exercises for posture, thoracic flexibility, cervical spine, strengthening for core and intrascapular muscles, consider band added to shoulder exercises. Consider working on aminata longus colli, consider working on vonda
--- NOTE | 2023-12-30 09:03 | PT.OTN ---
Current Diagnoses Cervicalgia (12/30/23) Physical Therapy Treatment Note PT-OP-A Visit Information Start: 12/07/23 12:08 Freq: Status: Active Protocol: Document 12/30/23 08:19 SP (Rec: 12/30/23 09:04 SP [id number]) Out-Patient Physical Therapy Visit Information Visit Information Visit Type Treatment Note Visit Note [employer] 12/19 before progress note Or Progress note before Visit Start Time 08:19 Visit Stop Time 09:03 Visit Number 6 Number of CLARITY DEVELOPER Visits 1 Evaluation Information Evaluation Date 12/08/23 PT-OP-B Current Condition Start: 12/07/23 12:08 Freq: Status: Active Protocol: Document 12/08/23 09:00 MB (Rec: 12/08/23 09:16 MB [id number]) Current Condition History of Current Condition Onset Date June 2023 Current Complaints Everyday headaches since June History of Current Condition Pt sees a neurologist for HAs and she was put on daily medications for HAs but it made her too tired to drive. She stopped taking the medication. She thinks that injections are next. 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 Screen time is the worst. She has right greater than left TMD. She saw an oral surgeon in [facility] [place] and she got a two new night guards. She has less popping. She has bone on bone right TMD. Her RA factor is high and she has issues with Raynaud's. She came back up to [place] 11/10[place]23 from [place] and she feels that the weather bothers her a lot. Pt had full hysterectomy and bladder sling in the past three years. ENT in [facility] [place] did not think it was sinus. Pt gets a neck x- ray every year and she had C6- 7 disc replacement six years ago. She is taking medication to help her sleep at night and she has prescriptions from TMD and neurologist providers. She takes BP meds at night. She threw up all three long weekend days. Treatment Goals Patient/Caregiver Goals To decrease the headaches to function PT-OP-C Subjective Start: 12/07/23 12:08 Freq: Status: Active Protocol: Document 12/30/23 08:19 SP (Rec: 12/30/23 09:04 SP [id number]) OP-PT Subjective Patient Comments Patient Comments Pt reports she also saw her massage therapist later in day . So felt really sore so layed down and use heat and ice for recovery. Was nausea and severe headaches worse next today into the evening needed be in dark room. Called physician and got a Toridol IV cocktail for support yesterday. She arrives with low grade headache,light and sound sensitive today and yesterday. Considering Botox. Pt reported was hoarse after last tx thinking maybe to much manual front of her neck and nervous about her vocal implants. PT-OP-J Posture/Palpation/Skin Start: 12/07/23 12:08 Freq: Status: Active Protocol: Document 12/08/23 09:00 MB (Rec: 12/08/23 09:29 MB [id number]) Posture Evaluation Comments Posture Comments Standing posture: forward head , rounded shoulders, increased sway back, left iliac crest higher than right. PT-OP-K Range of Motion Start: 12/07/23 12:08 Freq: Status: Active Protocol: Document 12/08/23 09:00 MB (Rec: 12/08/23 09:42 MB [id number]) Cervical Spine Range of Motion Cervical Spine Active Testing Position Standing Flexion 30 Extension 20 Rotation Left 60 Rotation Right 70 Lateral Flexion Left 5 Lateral Flexion Right 15 PT-OP-M Strength Start: 12/07/23 12:08 Freq: Status: Active Protocol: Document 12/08/23 09:00 MB (Rec: 12/08/23 09:42 MB [id number]) Shoulder Strength Shoulder Manual Muscle Testing Right Flexion 5 Normal Abduction (C5) 5 Normal Left Flexion 5 Normal Abduction (C5) 5 Normal Elbow/Forearm Strength Elbow and Forearm Manual Muscle Testing Left Flexion (C6) 5 Normal Extension (C7) 5 Normal Right Flexion (C6) 5 Normal Extension (C7) 5 Normal PT-OP-Q Treatments Start: 12/07/23 12:08 Freq: Status: Active Protocol: Document 12/30/23 08:19 SP (Rec: 12/30/23 09:04 SP [id number]) Therapeutic Exercises Supine Exercises head nods Supine Exercise Name trialed in PT for ROM post manual- not added as HEP Reps/Minutes x8 reps Comments reports less tension back of head post manual Foam roller exercises Side bilateral Resistance AROM exercises Equipment Used 6 Reps/Minutes 10 each (ed increase BLE LENNOX and TA back toward foam roller ) Comments Flexion, Ts, 1/2Xs, pect stretch x30 sec- got little dizzy Manual Therapy Treatment Other Other Manual Treatments Pt hook lying with head and legs supported and pillows, lights dim: Gentle/very light STM B upper traps, suboccipital release, B Temporalis, SCM & Scalene R>L with ed hand over hand feedback reported self application. Craniosacral: parietal, sphenoid, frontal decompression. Short time spent reviewing self TMJ intraoral R (masseter, medial pterygoid) STMs manual and self application learned from previous PT. Good response less tension jaw. PT-OP-T Assessment and Plan Start: 12/07/23 12:08 Freq: Status: Active Protocol: Document 12/30/23 08:19 SP (Rec: 12/30/23 09:04 SP [id number]) Physical Therapy Assessment Goals 3 Impairment HDI reflects 82% disability Impairment Blank space Music Historian Goal (LTG) Pt will present with HDI score reflecting no more than 50% disability to reflect improved OLIVERA pain, quality of life and function. LTG Duration 8 weeks 2 Impairment Decreased cervical rotation and SB Impairment Blank space Music Historian Goal (LTG) Pt will present with equal and non-painful cervical rotation and SB to improve scanning with gait, driving and daily functional tasks. LTG Duration 8 weeks 1 Impairment Lack of HEP Impairment Blank space Music Historian Goal (LTG) Pt will perform progressive HEP with I including breathing , flexibility, gentle core and balance exercises to improve pain and quality of life. LTG Duration 8 weeks Assessment Summary Assessment Pt 24 cm jaw opening end tx ( not measure pre tx). Pt responded well to gentle asset accountant pressure STMs today, self application SCM and intraoral ed review for carryover home benefits. She reported and demonstrated little dizzy unsteady standing after supine HEP review over foam roller. Discussed perform on floor for now if tolerated and symptom free, to allow used to AROM safety before foam roller comes in, pt in agreement. Physical Therapy Plan Frequency and Duration Frequency of Treatment 1-2x/wk Duration of treatment (weeks) 8 Plan of Care Start Date 12/08/23 Plan of Care End Date 02/07/24 Therapeutic Interventions Therapeutic Interventions Balance Training,Canalithic Repositioning,Home Exercise Program,Joint Mobilizations, Manual Therapy,Neuromuscular Re-education,Patient/Caregiver Education,Self-Care/Home Management,Sensory Integration ,Soft Tissue Mobilization, Taping,Therapeutic Activities, Therapeutic Exercises, Vestibular Rehabilitation Modalities Cold Pack/Ice Massage,Electric Stimulation,Hot Packs, Ultrasound Next Visit Focus/Plan Next Note Type Treatment Note Next Visit Plan REcheck response to light manual and HEP reivew over foam roller dizziness last tx. POC: Similar: ongoing manual work if tolerated and progress exercises for posture, thoracic flexibility, cervical spine, strengthening for core and intrascapular muscles, consider band added to shoulder exercises. Consider working on miguel coates, consider working on vonda
--- NOTE | 2024-01-03 08:10 | PT.OTN ---
Current Diagnoses Cervicalgia (01/03/24) Physical Therapy Treatment Note PT-OP-A Visit Information Start: 12/07/23 12:08 Freq: Status: Active Protocol: Document 01/03/24 07:30 MB (Rec: 01/03/24 08:08 MB [id number]) Out-Patient Physical Therapy Visit Information Visit Information Visit Type Treatment Note Visit Note Progress note next treatment Visit Start Time 07:30 Visit Stop Time 08:10 Visit Number 7 Number of ASSOCIATE EMBALMER/FUNERAL DIRECTOR Visits 0 Evaluation Information Evaluation Date 12/08/23 Precautions Precautions History of neck surgery/disc surgery C6-7. Please do not do too much deep cervical manual work or ROM exercises with pt . PT-OP-B Current Condition Start: 12/07/23 12:08 Freq: Status: Active Protocol: Document 12/08/23 09:00 MB (Rec: 12/08/23 09:16 MB [id number]) Current Condition History of Current Condition Onset Date June 2023 Current Complaints Everyday headaches since June History of Current Condition Pt sees a neurologist for HAs and she was put on daily medications for HAs but it made her too tired to drive. She stopped taking the medication. She thinks that injections are next. 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 Screen time is the worst. She has right greater than left TMD. She saw an oral surgeon in [facility] and she got a two new night guards. She has less popping. She has bone on bone right TMD. Her RA factor is high and she has issues with Raynaud's. She came back up to [place] 11/10/23 from [place] and she feels that the weather bothers her a lot. Pt had full hysterectomy and bladder sling in the past three years. ENT in [facility] [place] did not think it was sinus. Pt gets a neck x- ray every year and she had C6- 7 disc replacement six years ago. She is taking medication to help her sleep at night and she has prescriptions from TMD and neurologist providers. She takes BP meds at night. She threw up all three long weekend days. Treatment Goals Patient/Caregiver Goals To decrease the headaches to function PT-OP-C Subjective Start: 12/07/23 12:08 Freq: Status: Active Protocol: Document 01/03/24 07:30 MB (Rec: 01/03/24 08:08 MB [id number]) OP-PT Subjective Patient Comments Patient Comments Pt felt worse after last treatment. It was maybe too much work with her neck. She had a headache stemming from her neck after treatment. Pt did not manage well over the weekend. She does not think that the migraine injectable is helping. PT-OP-J Posture/Palpation/Skin Start: 12/07/23 12:08 Freq: Status: Active Protocol: Document 12/08/23 09:00 MB (Rec: 12/08/23 09:29 MB [id number]) Posture Evaluation Comments Posture Comments Standing posture: forward head , rounded shoulders, increased sway back, left iliac crest higher than right. PT-OP-K Range of Motion Start: 12/07/23 12:08 Freq: Status: Active Protocol: Document 12/08/23 09:00 MB (Rec: 12/08/23 09:42 MB [id number]) Cervical Spine Range of Motion Cervical Spine Active Testing Position Standing Flexion 30 Extension 20 Rotation Left 60 Rotation Right 70 Lateral Flexion Left 5 Lateral Flexion Right 15 PT-OP-M Strength Start: 12/07/23 12:08 Freq: Status: Active Protocol: Document 12/08/23 09:00 MB (Rec: 12/08/23 09:42 MB [id number]) Shoulder Strength Shoulder Manual Muscle Testing Right Flexion 5 Normal Abduction (C5) 5 Normal Left Flexion 5 Normal Abduction (C5) 5 Normal Elbow/Forearm Strength Elbow and Forearm Manual Muscle Testing Left Flexion (C6) 5 Normal Extension (C7) 5 Normal Right Flexion (C6) 5 Normal Extension (C7) 5 Normal PT-OP-Q Treatments Start: 12/07/23 12:08 Freq: Status: Active Protocol: Document 01/03/24 07:30 MB (Rec: 01/03/24 08:08 MB [id number]) Manual Therapy Treatment Other Other Manual Treatments Pt hook lying with head and legs supported and lights dim: more gentle STM and positional release B pects ( right with more tension), B upper traps and levator, grade II PA cervical mobs, more tension left uppper traps and levator, very gentle STM SCM and scalenes, suboccipital release, all gentle work PT-OP-T Assessment and Plan Start: 12/07/23 12:08 Freq: Status: Active Protocol: Document 01/03/24 07:30 MB (Rec: 01/03/24 08:08 [id number]) Physical Therapy Assessment Rehab Potential Rehabilitation Potential Fair Evaluation Complexity Number of Personal Factors/Comorbidities 1-2 Number of Body Systems Impaired 1-2 Clinical Presentation at Evaluation Evolving Impairments Impairments Activity Tolerance,Balance, Functional Activities, Functional Mobility,Pain, Posture,ROM,Sensation,Soft Tissue Mobility,Strength Goals 3 Impairment HDI reflects 82% disability Impairment Blank space Skilled Nursing Goal (LTG) Pt will present with HDI score reflecting no more than 50% disability to reflect improved OLIVERA pain, quality of life and function. LTG Duration 8 weeks 2 Impairment Decreased cervical rotation and SB Impairment Blank space Forklift Operator Goal (LTG) Pt will present with equal and non-painful cervical rotation and SB to improve scanning with gait, driving and daily functional tasks. LTG Duration 8 weeks 1 Impairment Lack of HEP Impairment Blank space Forklift Operator Goal (LTG) Pt will perform progressive HEP with I including breathing , flexibility, gentle core and balance exercises to improve pain and quality of life. LTG Duration 8 weeks Assessment Summary Assessment Pt con't to report waking up with a headache every morning. She is also going to bed with a headache. This makes 6 months of headaches. She is starting psychotherapy tomorrow. Pt has complicated medical history including whiplash and C6-7 disc replacement. Progress note next treatment date. Hoping that gentle manual work is helpful today. Physical Therapy Plan Frequency and Duration Frequency of Treatment 1-2x/wk Duration of treatment (weeks) 8 Plan of Care Start Date 12/08/23 Plan of Care End Date 02/07/24 Therapeutic Interventions Therapeutic Interventions Balance Training,Canalithic Repositioning,Home Exercise Program,Joint Mobilizations, Manual Therapy,Neuromuscular Re-education,Patient/Caregiver Education,Self-Care/Home Management,Sensory Integration ,Soft Tissue Mobilization, Taping,Therapeutic Activities, Therapeutic Exercises, Vestibular Rehabilitation Modalities Cold Pack/Ice Massage,Electric Stimulation,Hot Packs, Ultrasound Next Visit Focus/Plan Next Note Type Treatment Note Next Visit Plan Avoid a lot of cervical ROM and deep cervical work d/t history. Ongoing gentle manual work and progress exercises for posture, thoracic flexibility, cervical spine, strengthening for core and intrascapular muscles, consider band added to shoulder exercises. Consider working on Borqs, longus colli, consider working on [employer] (PIR[employer])r
--- NOTE | 2024-01-05 08:29 | PT.OTN ---
Current Diagnoses Cervicalgia (01/05/24) Physical Therapy Treatment Note PT-OP-A Visit Information Start: 12/07/23 12:08 Freq: Status: Active Protocol: Document 01/05/24 07:30 MB (Rec: 01/05/24 08:29 MB [id number]) Out-Patient Physical Therapy Visit Information Visit Information Visit Type Progress Note Visit Note Progress note by 02/06 which is end of POC Visit Start Time 07:30 Visit Stop Time 08:10 Visit Number 8 Number of DIRECTOR INDEX Visits 0 Evaluation Information Evaluation Date 12/08/23 Precautions Precautions History of neck surgery/disc surgery C6-7. Please do not do too much deep cervical manual work or ROM exercises with pt . PT-OP-B Current Condition Start: 12/07/23 12:08 Freq: Status: Active Protocol: Document 12/08/23 09:00 MB (Rec: 12/08/23 09:16 MB [id number]) Current Condition History of Current Condition Onset Date June 2023 Current Complaints Everyday headaches since June History of Current Condition Pt sees a neurologist for HAs and she was put on daily medications for HAs but it made her too tired to drive. She stopped taking the medication. She thinks that injections are next. 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 Screen time is the worst. She has right greater than left TMD. She saw an oral surgeon in [facility] and she got a two new night guards. She has less popping. She has bone on bone right TMD. Her RA factor is high and she has issues with Raynaud's. She came back up to [place] 11/10/23 from [place] and she feels that the weather bothers her a lot. Pt had full hysterectomy and bladder sling in the past three years. ENT in [facility] did not think it was sinus. Pt gets a neck x- ray every year and she had C6- 7 disc replacement six years ago. She is taking medication to help her sleep at night and she has prescriptions from TMD and neurologist providers. She takes BP meds at night. She threw up all three long weekend days. Treatment Goals Patient/Caregiver Goals To decrease the headaches to function PT-OP-C Subjective Start: 12/07/23 12:08 Freq: Status: Active Protocol: Document 01/05/24 07:30 MB (Rec: 01/05/24 08:29 MB [id number]) OP-PT Subjective Patient Comments Patient Comments Pt was prescribed prednisone yesterday. She said that she went to ask about CT of her sinuses. Provider was able to read the ED note that said sinuses are clear. He will order a MRI. They are going to rule out temporal arteritis on the right side. PT-OP-J Posture/Palpation/Skin Start: 12/07/23 12:08 Freq: Status: Active Protocol: Document 12/08/23 09:00 MB (Rec: 12/08/23 09:29 MB [id number]) Posture Evaluation Comments Posture Comments Standing posture: forward head , rounded shoulders, increased sway back, left iliac crest higher than right. PT-OP-K Range of Motion Start: 12/07/23 12:08 Freq: Status: Active Protocol: Document 12/08/23 09:00 MB (Rec: 12/08/23 09:42 MB [id number]) Cervical Spine Range of Motion Cervical Spine Active Testing Position Standing Flexion 30 Extension 20 Rotation Left 60 Rotation Right 70 Lateral Flexion Left 5 Lateral Flexion Right 15 PT-OP-M Strength Start: 12/07/23 12:08 Freq: Status: Active Protocol: Document 12/08/23 09:00 MB (Rec: 12/08/23 09:42 MB [id number]) Shoulder Strength Shoulder Manual Muscle Testing Right Flexion 5 Normal Abduction (C5) 5 Normal Left Flexion 5 Normal Abduction (C5) 5 Normal Elbow/Forearm Strength Elbow and Forearm Manual Muscle Testing Left Flexion (C6) 5 Normal Extension (C7) 5 Normal Right Flexion (C6) 5 Normal Extension (C7) 5 Normal PT-OP-Q Treatments Start: 12/07/23 12:08 Freq: Status: Active Protocol: Document 01/05/24 07:30 MB (Rec: 01/05/24 08:29 MB [id number]) Therapeutic Exercises Supine Exercises Foam roller exercises Side bilateral Resistance AROM exercises Equipment Used 6 Reps/Minutes 10 each (ed increase BLE LENNOX and TA back toward foam roller ) Comments Flexion, Ts, 1/2Xs, pect stretch x30 sec- got little dizzy Manual Therapy Treatment Consent Patient gave verbal consent for manual Yes treatment Other Other Manual Treatments Pt hook lying with head and legs supported and lights dim: suboccipital release, gentle STM SCM and upper traps B Self-Care/Home Management Treatment Education Other Education Re-ed pt on benefits of taping mouth and practiced today as opposed to using bite guard as she points to TMJ area and reports tension after using it last night and history of grinding through, ed pt on benefits of taking ten minutes to work on breathing in comfortable position each time , times when she could tape mouth to work on breathing PT-OP-T Assessment and Plan Start: 12/07/23 12:08 Freq: Status: Active Protocol: Document 01/05/24 07:30 MB (Rec: 01/05/24 08:29 MB [id number]) Physical Therapy Assessment Rehab Potential Rehabilitation Potential Fair Evaluation Complexity Number of Personal Factors/Comorbidities 1-2 Number of Body Systems Impaired 1-2 Clinical Presentation at Evaluation Evolving Impairments Impairments Activity Tolerance,Balance, Functional Activities, Functional Mobility,Pain, Posture,ROM,Sensation,Soft Tissue Mobility,Strength Goals 3 Impairment HDI reflects 82% disability Impairment Blank space Skilled Nursing Goal (LTG) Pt will present with HDI score reflecting no more than 50% disability to reflect improved OLIVERA pain, quality of life and function. 01/05/24: 64% impairment on HDI today LTG Duration 8 weeks 2 Impairment Decreased cervical rotation and SB Impairment Blank space Display Fabricator Goal (LTG) Pt will present with equal and non-painful cervical rotation and SB to improve scanning with gait, driving and daily functional tasks. 01/05/24: Mildly reduced right rotation and left SB compared to opposite side and no pain today but nausea afterwards LTG Duration 8 weeks 1 Impairment Lack of HEP Impairment Blank space Display Fabricator Goal (LTG) Pt will perform progressive HEP with I including breathing , flexibility, gentle core and balance exercises to improve pain and quality of life. 01/05/24: Buteyko breathing, cat cow at counter, roller cane, racquet ball massage LTG Duration 8 weeks Assessment Summary Assessment Pt con't with daily headaches and now she is being worked-up for temporal arteritis. She has not had yearly check in with neurosurgeon and so ed pt to check in with neurosurgeon since she has had 6 month onset of headaches and he is not yet aware to check surgical site. Pt states today that the headaches started in June when she was in [facility], at high elevation . She has made some progress towards PT goals including HDI score, increased range and less pain with cervical rotation and performance of some exercises. Her presentation is complicated and she will benefit from ongoing PT to improve range, pain, exercises. Physical Therapy Plan Frequency and Duration Frequency of Treatment 1-2x/Week Duration of treatment (weeks) 8 Plan of Care Start Date 12/08/23 Plan of Care End Date 02/07/24 Therapeutic Interventions Therapeutic Interventions Balance Training,Canalithic Repositioning,Home Exercise Program,Joint Mobilizations, Manual Therapy,Neuromuscular Re-education,Patient/Caregiver Education,Self-Care/Home Management,Sensory Integration ,Soft Tissue Mobilization, Taping,Therapeutic Activities, Therapeutic Exercises, Vestibular Rehabilitation Modalities Cold Pack/Ice Massage,Electric Stimulation,Hot Packs, Ultrasound Next Visit Focus/Plan Next Note Type Treatment Note Next Visit Plan Consider Counterstrain, eye exercises/VOMS, avoid a lot of cervical ROM and deep cervical work d/t history. Ongoing gentle manual work and progress exercises for posture, thoracic flexibility, cervical spine, strengthening for core and intrascapular muscles, consider band added to shoulder exercises. Consider working on miguel coates, consider working on vonda
--- NOTE | 2024-01-24 08:17 | PT.OTN ---
Current Diagnoses Cervicalgia (01/24/24) Physical Therapy Treatment Note PT-OP-A Visit Information Start: 12/07/23 12:08 Freq: Status: Active Protocol: Document 01/24/24 07:30 MB (Rec: 01/24/24 08:15 MB [id number]) Out-Patient Physical Therapy Visit Information Visit Information Visit Type Treatment Note Visit Note Progress note by 02/06 which is end of POC Visit Start Time 07:30 Visit Stop Time 08:10 Visit Number 9 Number of INVESTMENT BANKING MANAGER Visits 0 Evaluation Information Evaluation Date 12/08/23 Precautions Precautions History of neck surgery/disc surgery C6-7. Please do not do too much deep cervical manual work or ROM exercises with pt . PT-OP-B Current Condition Start: 12/07/23 12:08 Freq: Status: Active Protocol: Document 12/08/23 09:00 MB (Rec: 12/08/23 09:16 MB [id number]) Current Condition History of Current Condition Onset Date June 2023 Current Complaints Everyday headaches since June History of Current Condition Pt sees a neurologist for HAs and she was put on daily medications for HAs but it made her too tired to drive. She stopped taking the medication. She thinks that injections are next. 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 Screen time is the worst. She has right greater than left TMD. She saw an oral surgeon in [facility] and she got a two new night guards. She has less popping. She has bone on bone right TMD. Her RA factor is high and she has issues with Raynaud's. She came back up to [place] 11/10/23 from [place] and she feels that the weather bothers her a lot. Pt had full hysterectomy and bladder sling in the past three years. ENT in [facility] did not think it was sinus. Pt gets a neck x- ray every year and she had C6- 7 disc replacement six years ago. She is taking medication to help her sleep at night and she has prescriptions from TMD and neurologist providers. She takes BP meds at night. She threw up all three long weekend days. Treatment Goals Patient/Caregiver Goals To decrease the headaches to function PT-OP-C Subjective Start: 12/07/23 12:08 Freq: Status: Active Protocol: Document 01/24/24 07:30 MB (Rec: 01/24/24 08:15 MB [id number]) OP-PT Subjective Patient Comments Patient Comments Pt states that she is feeling a lot better after the third injection. She notices if she has too much stimulation and processing, her headaches get worse. She is able to do work 10 hours a week. Tracking on the computer is a challenge, lots of noises and light are also troublesome. She is out getting vitamin D. She wakes up every morning with head pressure/OLIVERA. She is going to get a new pillow. Pt gets brain MRI this week. PT-OP-J Posture/Palpation/Skin Start: 12/07/23 12:08 Freq: Status: Active Protocol: Document 12/08/23 09:00 MB (Rec: 12/08/23 09:29 MB [id number]) Posture Evaluation Comments Posture Comments Standing posture: forward head , rounded shoulders, increased sway back, left iliac crest higher than right. PT-OP-K Range of Motion Start: 12/07/23 12:08 Freq: Status: Active Protocol: Document 12/08/23 09:00 MB (Rec: 12/08/23 09:42 MB [id number]) Cervical Spine Range of Motion Cervical Spine Active Testing Position Standing Flexion 30 Extension 20 Rotation Left 60 Rotation Right 70 Lateral Flexion Left 5 Lateral Flexion Right 15 PT-OP-M Strength Start: 12/07/23 12:08 Freq: Status: Active Protocol: Document 12/08/23 09:00 MB (Rec: 12/08/23 09:42 MB [id number]) Shoulder Strength Shoulder Manual Muscle Testing Right Flexion 5 Normal Abduction (C5) 5 Normal Left Flexion 5 Normal Abduction (C5) 5 Normal Elbow/Forearm Strength Elbow and Forearm Manual Muscle Testing Left Flexion (C6) 5 Normal Extension (C7) 5 Normal Right Flexion (C6) 5 Normal Extension (C7) 5 Normal PT-OP-Q Treatments Start: 12/07/23 12:08 Freq: Status: Active Protocol: Document 01/24/24 07:30 MB (Rec: 01/24/24 08:15 MB [id number]) Manual Therapy Treatment Consent Patient gave verbal consent for manual Yes treatment Other Other Manual Treatments Pt hook lying with head and legs supported and lights dim: SCM STM with most tension on the right, left first rib isometric, PA cervical mobs grade II, B anterior scalene STM, B upper traps STM. Self-Care/Home Management Treatment Education Other Education Re-ed pt on benefits of proper pillow for sleeping position, hydration, Buteyko breathing, mouth taping, stopping foam roller PT-OP-T Assessment and Plan Start: 12/07/23 12:08 Freq: Status: Active Protocol: Document 01/24/24 07:30 MB (Rec: 01/24/24 08:15 MB [id number]) Physical Therapy Assessment Rehab Potential Rehabilitation Potential Fair Evaluation Complexity Number of Personal Factors/Comorbidities 1-2 Number of Body Systems Impaired 1-2 Clinical Presentation at Evaluation Evolving Impairments Impairments Activity Tolerance,Balance, Functional Activities, Functional Mobility,Pain, Posture,ROM,Sensation,Soft Tissue Mobility,Strength Goals 3 Impairment HDI reflects 82% disability Impairment Blank space Invisible Braces Orthodontist Goal (LTG) Pt will present with HDI score reflecting no more than 50% disability to reflect improved OLIVERA pain, quality of life and function. 01/05/24: 64% impairment on HDI today LTG Duration 8 weeks 2 Impairment Decreased cervical rotation and SB Impairment Blank space Senior Care Goal (LTG) Pt will present with equal and non-painful cervical rotation and SB to improve scanning with gait, driving and daily functional tasks. 01/05/24: Mildly reduced right rotation and left SB compared to opposite side and no pain today but nausea afterwards LTG Duration 8 weeks 1 Impairment Lack of HEP Impairment Blank space Senior Care Goal (LTG) Pt will perform progressive HEP with I including breathing , flexibility, gentle core and balance exercises to improve pain and quality of life. 01/05/24: Buteyko breathing, cat cow at counter, roller cane, racquet ball massage LTG Duration 8 weeks Assessment Summary Assessment Pt is feeling better after third migraine self-injection. She gets MRI brain and has rheumatology appointment this week. Many muscles and joint tension cervical spine. Ed pt in benefits of working eye ROM with cervical spine in neutral/supported to help with eye symptoms. Pt would like to d/c in 2 treatments. Pt reports interest in HEP and prefers program like she has done in the past. PT feels that pelvic pain sequence will benefit fascial tightness, thoracic mobility and PT will perform with pt with supported cervial spine and this may help tension with HAs. Physical Therapy Plan Frequency and Duration Frequency of Treatment 1-2x/Week Duration of treatment (weeks) 8 Plan of Care Start Date 12/08/23 Plan of Care End Date 02/07/24 Therapeutic Interventions Therapeutic Interventions Balance Training,Canalithic Repositioning,Home Exercise Program,Joint Mobilizations, Manual Therapy,Neuromuscular Re-education,Patient/Caregiver Education,Self-Care/Home Management,Sensory Integration ,Soft Tissue Mobilization, Taping,Therapeutic Activities, Therapeutic Exercises, Vestibular Rehabilitation Modalities Cold Pack/Ice Massage,Electric Stimulation,Hot Packs, Ultrasound Next Visit Focus/Plan Next Note Type Treatment Note Next Visit Plan Pelvic pain sequence with neck supported, eye ROM D/c in two treatments
--- NOTE | 2024-01-31 08:44 | PT.OTN ---
Current Diagnoses Cervicalgia (01/31/24) Physical Therapy Treatment Note PT-OP-A Visit Information Start: 12/07/23 12:08 Freq: Status: Active Protocol: Document 01/31/24 07:26 MB (Rec: 01/31/24 08:44 MB [id number]) Out-Patient Physical Therapy Visit Information Visit Information Visit Type Treatment Note Visit Note Progress note by 02/06 which is end of POC Visit Start Time 07:26 Visit Stop Time 08:26 Visit Number 10 Number of CYBER SECURITY ENGINEER Visits 0 Evaluation Information Evaluation Date 12/08/23 Precautions Precautions History of neck surgery/disc surgery C6-7. Please do not do too much deep cervical manual work or ROM exercises with pt . MRI head 01/27/24: NAD. PT-OP-B Current Condition Start: 12/07/23 12:08 Freq: Status: Active Protocol: Document 12/08/23 09:00 MB (Rec: 12/08/23 09:16 MB [id number]) Current Condition History of Current Condition Onset Date June 2023 Current Complaints Everyday headaches since June History of Current Condition Pt sees a neurologist for HAs and she was put on daily medications for HAs but it made her too tired to drive. She stopped taking the medication. She thinks that injections are next. 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 Screen time is the worst. She has right greater than left TMD. She saw an oral surgeon in [facility] [place] and she got a two new night guards. She has less popping. She has bone on bone right TMD. Her RA factor is high and she has issues with Raynaud's. She came back up to [place] 11/10/23 from [place] and she feels that the weather bothers her a lot. Pt had full hysterectomy and bladder sling in the past three years. ENT in [facility] [place] did not think it was sinus. Pt gets a neck x- ray every year and she had C6- 7 disc replacement six years ago. She is taking medication to help her sleep at night and she has prescriptions from TMD and neurologist providers. She takes BP meds at night. She threw up all three long weekend days. Treatment Goals Patient/Caregiver Goals To decrease the headaches to function PT-OP-C Subjective Start: 12/07/23 12:08 Freq: Status: Active Protocol: Document 01/31/24 07:26 MB (Rec: 01/31/24 08:44 MB [id number]) OP-PT Subjective Patient Comments Patient Comments Pt states that right now, she has a headache on the left side. She met with the rhematologist and she has Raynauld's but she is not going to get medicine for it. She has RA and will not have treatment for it. The doctor does not think her headaches are related to the arthritis. She got a MRI of her head. Pt is doing her breathing exercises and her walking. She tried a little red wine and it instantly gave her a OLIVERA. Pt was also just put on progesterone and four new supplements. PT-OP-J Posture/Palpation/Skin Start: 12/07/23 12:08 Freq: Status: Active Protocol: Document 12/08/23 09:00 MB (Rec: 12/08/23 09:29 MB [id number]) Posture Evaluation Comments Posture Comments Standing posture: forward head , rounded shoulders, increased sway back, left iliac crest higher than right. PT-OP-K Range of Motion Start: 12/07/23 12:08 Freq: Status: Active Protocol: Document 12/08/23 09:00 MB (Rec: 12/08/23 09:42 MB [id number]) Cervical Spine Range of Motion Cervical Spine Active Testing Position Standing Flexion 30 Extension 20 Rotation Left 60 Rotation Right 70 Lateral Flexion Left 5 Lateral Flexion Right 15 PT-OP-M Strength Start: 12/07/23 12:08 Freq: Status: Active Protocol: Document 12/08/23 09:00 MB (Rec: 12/08/23 09:42 MB [id number]) Shoulder Strength Shoulder Manual Muscle Testing Right Flexion 5 Normal Abduction (C5) 5 Normal Left Flexion 5 Normal Abduction (C5) 5 Normal Elbow/Forearm Strength Elbow and Forearm Manual Muscle Testing Left Flexion (C6) 5 Normal Extension (C7) 5 Normal Right Flexion (C6) 5 Normal Extension (C7) 5 Normal PT-OP-Q Treatments Start: 12/07/23 12:08 Freq: Status: Active Protocol: Document 01/31/24 07:26 MB (Rec: 01/31/24 08:44 MB [id number]) Manual Therapy Treatment Consent Patient gave verbal consent for manual Yes treatment Other Other Manual Treatments Pt hook lying with head and legs supported and lights dim: grade I-II PA mobs upper cervical spine, STM upper traps, cervical parapsinals, B SCM and more tension on the right, suboccipital release, fascial counterstrain treatment including neural and lymphatic fascial systems as well as viscera, B positional release ribs, STM left greater than right infraspinatus and upper traps and levator Neuro Re-Education Treatment Other Activities Diaphragm and nasal breathing Comments Performed today during treatment with gentle nasal breathing with head and legs supported to improve parasympathetic engagement Self-Care/Home Management Treatment Education Other Education Discussion about follow-up with OB-EDUCATIONAL TECHNOLOGY SPECIALIST about pelvic floor concerns and benefits of pelvic floor PT, ongoing breathing training, enourages pt to follow-up with her neurosurgeon to assess cervical spine in case there is instability there since she has new symptoms PT-OP-T Assessment and Plan Start: 12/07/23 12:08 Freq: Status: Active Protocol: Document 01/31/24 07:26 MB (Rec: 01/31/24 08:44 MB [id number]) Physical Therapy Assessment Rehab Potential Rehabilitation Potential Fair Evaluation Complexity Number of Personal Factors/Comorbidities 1-2 Number of Body Systems Impaired 1-2 Clinical Presentation at Evaluation Evolving Impairments Impairments Activity Tolerance,Balance, Functional Activities, Functional Mobility,Pain, Posture,ROM,Sensation,Soft Tissue Mobility,Strength Goals 3 Impairment HDI reflects 82% disability Impairment Blank space Director Of Cardiac Rehabilitation Goal (LTG) Pt will present with HDI score reflecting no more than 50% disability to reflect improved OLIVERA pain, quality of life and function. 01/05/24: 64% impairment on HDI today LTG Duration 8 weeks 2 Impairment Decreased cervical rotation and SB Impairment Blank space Fci Goal (LTG) Pt will present with equal and non-painful cervical rotation and SB to improve scanning with gait, driving and daily functional tasks. 01/05/24: Mildly reduced right rotation and left SB compared to opposite side and no pain today but nausea afterwards LTG Duration 8 weeks 1 Impairment Lack of HEP Impairment Blank space Fci Goal (LTG) Pt will perform progressive HEP with I including breathing , flexibility, gentle core and balance exercises to improve pain and quality of life. 01/05/24: Buteyko breathing, cat cow at counter, roller cane, racquet ball massage LTG Duration 8 weeks Assessment Summary Assessment No pelvic pain sequence today d/t c/o bladder leakage. PT con't to encourage pt to make an appointment with her neurosurgeon given severe cervicogenic headache and left eye pain can be provoked with gentle STM left cervical paraspinals and initiate suboccipital release today. Pt will call neurosurgeon today, take her cervical pillow to her finds cabin and consider icing. Physical Therapy Plan Frequency and Duration Frequency of Treatment 1-2x/Week Duration of treatment (weeks) 8 Plan of Care Start Date 12/08/23 Plan of Care End Date 02/07/24 Therapeutic Interventions Therapeutic Interventions Balance Training,Canalithic Repositioning,Home Exercise Program,Joint Mobilizations, Manual Therapy,Neuromuscular Re-education,Patient/Caregiver Education,Self-Care/Home Management,Sensory Integration ,Soft Tissue Mobilization, Taping,Therapeutic Activities, Therapeutic Exercises, Vestibular Rehabilitation Modalities Cold Pack/Ice Massage,Electric Stimulation,Hot Packs, Ultrasound Next Visit Focus/Plan Next Note Type Progress Note Next Visit Plan Progress note and then initiate intrascapular strengthening, upper cervical isometrics
--- NOTE | 2024-02-07 08:56 | PT.OTN ---
Current Diagnoses Cervicalgia (02/07/24) Physical Therapy Treatment Note PT-OP-A Visit Information Start: 12/07/23 12:08 Freq: Status: Active Protocol: Document 02/07/24 08:13 MB (Rec: 02/07/24 08:49 MB [id number]) Out-Patient Physical Therapy Visit Information Visit Information Visit Type Progress Note Visit Start Time 08:13 Visit Stop Time 08:53 Visit Number 11 Number of TECHNICAL PUBLICATIONS WRITER Visits 0 Evaluation Information Evaluation Date 12/08/23 Precautions Precautions History of neck surgery/disc surgery C6-7. Please do not do too much deep cervical manual work or ROM exercises with pt . MRI head 01/27/24: NAD. PT-OP-B Current Condition Start: 12/07/23 12:08 Freq: Status: Active Protocol: Document 12/08/23 09:00 MB (Rec: 12/08/23 09:16 MB [id number]) Current Condition History of Current Condition Onset Date June 2023 Current Complaints Everyday headaches since June History of Current Condition Pt sees a neurologist for HAs and she was put on daily medications for HAs but it made her too tired to drive. She stopped taking the medication. She thinks that injections are next. 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 Screen time is the worst. She has right greater than left TMD. She [place] [facility] [place] got a two new night guards. She has less popping. She has bone on bone right TMD. Her RA factor is high and she has issues with Raynaud's. She came back up to [place] 11/10/23 from [place] and she feels that the weather bothers her a lot. Pt had full hysterectomy and bladder sling in the past three years. [place] [facility] [place] was [place]. Pt gets a neck x- ray every year and she had C6- 7 disc replacement six years ago. She is taking medication to help her sleep at night and she has prescriptions from TMD and neurologist providers. She takes BP meds at night. She threw up all three long weekend days. Treatment Goals Patient/Caregiver Goals To decrease the headaches to function PT-OP-C Subjective Start: 12/07/23 12:08 Freq: Status: Active Protocol: Document 02/07/24 08:13 MB (Rec: 02/07/24 08:49 MB [id number]) OP-PT Subjective Patient Comments Patient Comments Pt went to concert and she had ear coverage and it was okay. She had fun with management. She had a big weekend at home and has not moved into her friend's cabin on [address]. Pt feels she has some confusion and trouble getting words out. At work, they are going to hire another person because she is so behind. She contacted neurosurgeon office again and she feels they are pushing her off. PT-OP-J Posture/Palpation/Skin Start: 12/07/23 12:08 Freq: Status: Active Protocol: Document 12/08/23 09:00 MB (Rec: 12/08/23 09:29 MB [id number]) Posture Evaluation Comments Posture Comments Standing posture: forward head , rounded shoulders, increased sway back, left iliac crest higher than right. PT-OP-K Range of Motion Start: 12/07/23 12:08 Freq: Status: Active Protocol: Document 12/08/23 09:00 MB (Rec: 12/08/23 09:42 MB [id number]) Cervical Spine Range of Motion Cervical Spine Active Testing Position Standing Flexion 30 Extension 20 Rotation Left 60 Rotation Right 70 Lateral Flexion Left 5 Lateral Flexion Right 15 PT-OP-M Strength Start: 12/07/23 12:08 Freq: Status: Active Protocol: Document 12/08/23 09:00 MB (Rec: 12/08/23 09:42 MB [id number]) Shoulder Strength Shoulder Manual Muscle Testing Right Flexion 5 Normal Abduction (C5) 5 Normal Left Flexion 5 Normal Abduction (C5) 5 Normal Elbow/Forearm Strength Elbow and Forearm Manual Muscle Testing Left Flexion (C6) 5 Normal Extension (C7) 5 Normal Right Flexion (C6) 5 Normal Extension (C7) 5 Normal PT-OP-Q Treatments Start: 12/07/23 12:08 Freq: Status: Active Protocol: Document 02/07/24 08:13 MB (Rec: 02/07/24 08:49 MB [id number]) Therapeutic Exercises Supine Exercises Buteyko breathing Comments Verbally reviewed today and re -ed in performance Standing Exercises Racquet ball massage Comments Intrascapular area, STM, pulsating, MWM with head turns Modified cat cow Comments Reviewed today and ed to keep knees loose Manual Therapy Treatment Consent Patient gave verbal consent for manual Yes treatment Other Other Manual Treatments PT hook lying with head and legs supported: STM and positional release B upper traps, SCM, scalenes and longus colli and more tension on the left today PT-OP-T Assessment and Plan Start: 12/07/23 12:08 Freq: Status: Active Protocol: Document 02/07/24 08:13 MB (Rec: 02/07/24 08:49 MB [id number]) Physical Therapy Assessment Rehab Potential Rehabilitation Potential Fair Evaluation Complexity Number of Personal Factors/Comorbidities 1-2 Number of Body Systems Impaired 1-2 Clinical Presentation at Evaluation Evolving Impairments Impairments Activity Tolerance,Balance, Functional Activities, Functional Mobility,Pain, Posture,ROM,Sensation,Soft Tissue Mobility,Strength Goals 3 Impairment HDI reflects 82% disability Impairment Blank space Care Home Goal (LTG) Pt will present with HDI score reflecting no more than 50% disability to reflect improved OLIVERA pain, quality of life and function. 01/05/24: 64% impairment on HDI today 02/07/24: HDI score reflects 58 % impairment LTG Duration 8 weeks 2 Impairment Decreased cervical rotation and SB Impairment Blank space Care Home Goal (LTG) Pt will present with equal and non-painful cervical rotation and SB to improve scanning with gait, driving and daily functional tasks. 01/05/24: Mildly reduced right rotation and left SB compared to opposite side and no pain today but nausea afterwards 02/07/24: Cervical rotation to the right 71 deg and left 65 deg today. Cervical SB right 25 deg and left 20 deg. LTG Duration 8 weeks 1 Impairment Lack of HEP Impairment Blank space Care Home Goal (LTG) Pt will perform progressive HEP with I including breathing , flexibility, gentle core and balance exercises to improve pain and quality of life. 01/05/24: Buteyko breathing, cat cow at counter, roller cane, racquet ball massage 02/07/24: Foam roller exercise makes her feel dizzy, breathing exercises make her feel good. LTG Duration 8 weeks Assessment Summary Assessment Pt con't to make small gains with HDI score. Neck movement to the right is mildly better than the left today. She has had lower tolerance to exercises and reviewed today and made some changes. PT con' t to keep room with one small light and pt covers eyes. Con' t PT efforts 1 more month to see if pt can further progress . Physical Therapy Plan Frequency and Duration Frequency of Treatment 1-2x/Week Duration of treatment (weeks) 8 Plan of Care Start Date 02/07/24 Plan of Care End Date 03/11/24 Therapeutic Interventions Therapeutic Interventions Balance Training,Canalithic Repositioning,Home Exercise Program,Joint Mobilizations, Manual Therapy,Neuromuscular Re-education,Patient/Caregiver Education,Self-Care/Home Management,Sensory Integration ,Soft Tissue Mobilization, Taping,Therapeutic Activities, Therapeutic Exercises, Vestibular Rehabilitation Modalities Cold Pack/Ice Massage,Electric Stimulation,Hot Packs, Ultrasound Next Visit Focus/Plan Next Note Type Treatment Note Next Visit Plan Initiate intrascapular strengthening, upper cervical isometrics, gentle core progression and balance. [place] STM
--- NOTE | 2024-02-07 08:56 | PT.OPPOC ---
Physical, Occupational & Speech Therapy At [facility] Current Diagnoses Cervicalgia (02/07/24) Visit Care Team Role Provider Type Roseanna Joshi MD Attending Provider Physician Family Provider Primary Care Provider Referring Provider Specialty: Internal Medicine Address: [place], [address] Email: Plan Of Care PT-OP-B Current Condition Start: 12/07/23 12:08 Freq: Status: Active Protocol: Document 12/08/23 09:00 MB (Rec: 12/08/23 09:16 MB [id number]) Current Condition History of Current Condition Onset Date June 2023 Current Complaints Everyday headaches since June History of Current Condition Pt sees a neurologist for HAs and she was put on daily medications for HAs but it made her too tired to drive. She stopped taking the medication. She thinks that injections are next. 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 Screen time is the worst. She has right greater than left TMD. She saw an [place] [facility] [place] got a two new night guards. She has less popping. She has bone on bone right TMD. Her RA factor is high and she has issues with Raynaud's. She came back up to [place] 11/10/23 from [place] and she feels that the weather bothers her a lot. Pt had full hysterectomy and bladder sling in the past three years. ENT [place] [facility] [place] not think it was sinus. Pt gets a neck x- ray every year and she had C6- 7 disc replacement six years ago. She is taking medication to help her sleep at night and she has prescriptions from TMD and neurologist providers. She takes BP meds at night. She threw up all three long weekend days. Treatment Goals Patient/Caregiver Goals To decrease the headaches to function PT-OP-T Assessment and Plan Start: 12/07/23 12:08 Freq: Status: Active Protocol: Document 02/07/24 08:13 MB (Rec: 02/07/24 08:49 MB [id number]) Physical Therapy Assessment Rehab Potential Rehabilitation Potential Fair Evaluation Complexity Number of Personal Factors/Comorbidities 1-2 Number of Body Systems Impaired 1-2 Clinical Presentation at Evaluation Evolving Impairments Impairments Activity Tolerance,Balance, Functional Activities, Functional Mobility,Pain, Posture,ROM,Sensation,Soft Tissue Mobility,Strength Goals 3 Impairment HDI reflects 82% disability Impairment Blank space Fuel Truck Driver Goal (LTG) Pt will present with HDI score reflecting no more than 50% disability to reflect improved OLIVERA pain, quality of life and function. 01/05/24: 64% impairment on HDI today 02/07/24: HDI score reflects 58 % impairment LTG Duration 8 weeks 2 Impairment Decreased cervical rotation and SB Impairment Blank space Alf Goal (LTG) Pt will present with equal and non-painful cervical rotation and SB to improve scanning with gait, driving and daily functional tasks. 01/05/24: Mildly reduced right rotation and left SB compared to opposite side and no pain today but nausea afterwards 02/07/24: Cervical rotation to the right 71 deg and left 65 deg today. Cervical SB right 25 deg and left 20 deg. LTG Duration 8 weeks 1 Impairment Lack of HEP Impairment Blank space Fuel Truck Driver Goal (LTG) Pt will perform progressive HEP with I including breathing , flexibility, gentle core and balance exercises to improve pain and quality of life. 01/05/24: Buteyko breathing, cat cow at counter, roller cane, racquet ball massage 02/07/24: Foam roller exercise makes her feel dizzy, breathing exercises make her feel good. LTG Duration 8 weeks Assessment Summary Assessment Pt con't to make small gains with HDI score. Neck movement to the right is mildly better than the left today. She has had lower tolerance to exercises and reviewed today and made some changes. PT con' t to keep room with one small light and pt covers eyes. Con' t PT efforts 1 more month to see if pt can further progress . Physical Therapy Plan Frequency and Duration Frequency of Treatment 1-2x/Week Duration of treatment (weeks) 8 Plan of Care Start Date 02/07/24 Plan of Care End Date 03/11/24 Therapeutic Interventions Therapeutic Interventions Balance Training,Canalithic Repositioning,Home Exercise Program,Joint Mobilizations, Manual Therapy,Neuromuscular Re-education,Patient/Caregiver Education,Self-Care/Home Management,Sensory Integration ,Soft Tissue Mobilization, Taping,Therapeutic Activities, Therapeutic Exercises, Vestibular Rehabilitation Modalities Cold Pack/Ice Massage,Electric Stimulation,Hot Packs, Ultrasound Next Visit Focus/Plan Next Note Type Treatment Note Next Visit Plan Initiate intrascapular strengthening, upper cervical isometrics, gentle core progression and balance. Masseter STM Plan of Care Dates Plan of Care Start Date 02/07/24 Plan of Care End Date 03/11/24 Electronically Signed by: Leda Cazares, JUDI 02/07/24 0856 If you are in agreement with this Plan of Care, please return a signed and dated copy. I have reviewed this Plan of Care and certify that the skilled therapy services above are required to meet the patient?s needs. Physician Signature Date Printed Name and Credentials Clinical Instructor Signature Printed Name and Credentials
--- NOTE | 2024-02-09 16:54 | PT.OTN ---
Current Diagnoses Cervicalgia (02/09/24) Physical Therapy Treatment Note PT-OP-A Visit Information Start: 12/07/23 12:08 Freq: Status: Active Protocol: Document 02/09/24 13:13 NBM (Rec: 02/09/24 13:59 NBM [id number]) Out-Patient Physical Therapy Visit Information Visit Information Visit Type Treatment Note Visit Start Time 13:06 Visit Stop Time 13:55 Visit Number [address] [employer] Visits 1 Evaluation Information Evaluation Date 12/08/23 Precautions Precautions History of neck surgery/disc surgery C6-7. Please do not do too much deep cervical manual work or ROM exercises with pt . MRI head 01/27/24: NAD. PT-OP-B Current Condition Start: 12/07/23 12:08 Freq: Status: Active Protocol: Document 12/08/23 09:00 MB (Rec: 12/08/23 09:16 MB [id number]) Current Condition History of Current Condition Onset Date June 2023 Current Complaints Everyday headaches since June History of Current Condition Pt sees a neurologist for HAs and she was put on daily medications for HAs but it made her too tired to drive. She stopped taking the medication. She thinks that injections are next. 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 She has right greater than left TMD. She saw an oral surgeon in [facility] and she got a two new night guards. She has less popping. She has bone on bone right TMD. Her RA factor is high and she has issues with Raynaud's. She came back up to [place] 11/10/23 from [place] and she feels that the weather bothers her a lot. Pt had full hysterectomy and bladder sling in the past three years. ENT in [facility] did not think it was sinus. Pt gets a neck x- ray every year and she had C6- 7 disc replacement six years ago. She is taking medication to help her sleep at night and she has prescriptions from TMD and neurologist providers. She takes BP meds at night. She threw up all three long weekend days. Treatment Goals Patient/Caregiver Goals To decrease the headaches to function PT-OP-C Subjective Start: 12/07/23 12:08 Freq: Status: Active Protocol: Document 02/09/24 13:13 NBM (Rec: 02/09/24 13:59 [facility] [id number]) OP-PT Subjective Patient Comments Patient Comments Ruthy reports she needs surgery for rectocystocele with likely recovery 6-8 weeks . It feels like she has to pee all the time. She plans to put if off until after returning from [place] November 2024 which should be okay per MD. She's been getting spasm on L lumbar which started same time as headaches, and massage yesterday did not help so she still has headache. PT-OP-J Posture/Palpation/Skin Start: 12/07/23 12:08 Freq: Status: Active Protocol: Document 12/08/23 09:00 MB (Rec: 12/08/23 09:29 MB [id number]) Posture Evaluation Comments Posture Comments Standing posture: forward head , rounded shoulders, increased sway back, left iliac crest higher than right. PT-OP-K Range of Motion Start: 12/07/23 12:08 Freq: Status: Active Protocol: Document 12/08/23 09:00 MB (Rec: 12/08/23 09:42 MB [id number]) Cervical Spine Range of Motion Cervical Spine Active Testing Position Standing Flexion 30 Extension 20 Rotation Left 60 Rotation Right 70 Lateral Flexion Left 5 Lateral Flexion Right 15 PT-OP-M Strength Start: 12/07/23 12:08 Freq: Status: Active Protocol: Document 12/08/23 09:00 MB (Rec: 12/08/23 09:42 MB [id number]) Shoulder Strength Shoulder Manual Muscle Testing Right Flexion 5 Normal Abduction (C5) 5 Normal Left Flexion 5 Normal Abduction (C5) 5 Normal Elbow/Forearm Strength Elbow and Forearm Manual Muscle Testing Left Flexion (C6) 5 Normal Extension (C7) 5 Normal Right Flexion (C6) 5 Normal Extension (C7) 5 Normal PT-OP-Q Treatments Start: 12/07/23 12:08 Freq: Status: Active Protocol: Document 02/09/24 13:13 NBM (Rec: 02/09/24 13:59 NBM [id number]) Therapeutic Exercises Supine Exercises Lower trunk rotation Supine Exercise Name LTR w/ TrA focus Side bilateral Reps/Minutes 4 min Comments Cues for breathwork and TrA activation. Manual Therapy Treatment Consent Patient gave verbal consent for manual Yes treatment Other Other Manual Treatments -Pt hooklying with head and legs supported and lights dimmed: STM to B Upper traps, Levator scaps, SCMs, and scalenes. Gentle superficial STM to cervical paraspinals with pain monitoring and positive feedback response. Suboccipital release performed . -Sidelying w/ pillow support after LTR: STM to lumbar paraspinals L>R and L Quadratus lumborum. Manual stretch to L Quadratus lumborum w/ LUE overhead reach to improve stretch 2 x30s. Neuro Re-Education Treatment Other Activities Diaphragm and nasal breathing Comments Hooklying with head and legs supported, lights dimmed. Performed start of treatment sesssion with gentle nasal breathing to improve parasympathetic engagement. PT-OP-T Assessment and Plan Start: 12/07/23 12:08 Freq: Status: Active Protocol: Document 02/09/24 13:13 NBM (Rec: 02/09/24 13:59 [facility] [id number]) Physical Therapy Assessment Goals 3 Impairment HDI reflects 82% disability Impairment Blank space Correction Goal (LTG) Pt will present with HDI score reflecting no more than 50% disability to reflect improved OLIVERA pain, quality of life and function. 01/05/24: 64% impairment on HDI today 02/07/24: HDI score reflects 58 % impairment LTG Duration 8 weeks 2 Impairment Decreased cervical rotation and SB Impairment Blank space Correction Goal (LTG) Pt will present with equal and non-painful cervical rotation and SB to improve scanning with gait, driving and daily functional tasks. 01/05/24: Mildly reduced right rotation and left SB compared to opposite side and no pain today but nausea afterwards 02/07/24: Cervical rotation to the right 71 deg and left 65 deg today. Cervical SB right 25 deg and left 20 deg. LTG Duration 8 weeks 1 Impairment Lack of HEP Impairment Blank space Correction Goal (LTG) Pt will perform progressive HEP with I including breathing , flexibility, gentle core and balance exercises to improve pain and quality of life. 01/05/24: Buteyko breathing, cat cow at counter, roller cane, racquet ball massage 02/07/24: Foam roller exercise makes her feel dizzy, breathing exercises make her feel good. LTG Duration 8 weeks Assessment Summary Assessment Ruthy presents today with headache and recent spasms reported in L side of lumbar region. Treatment performed w/ lights dimmed and head and legs supported in hooklying initially, with focus on diaphragmatic breathing to activate parasympathetic nervous system engagement followed by STM to periscapular muscles and emphasis on periscapular muscles with shoulder elevation action to improve tension through shoulders and cervical region. STM followed by gentle Lower trunk rotation to improve trunk mobility and decrease stiffness w/ emphasis on Transverse abdominis activation and breathwork to maintain intraabdominal pressure. Manual pin and stretch performe to pt's L Quadratus lumborum with positive feedback response and pt ends session reporting improvement in headache symptoms and cervical tension. Physical Therapy Plan Frequency and Duration Frequency of Treatment 1-2x/Week Duration of treatment (weeks) 8 Plan of Care Start Date 02/07/24 Plan of Care End Date 03/11/24 Therapeutic Interventions Therapeutic Interventions Balance Training,Canalithic Repositioning,Home Exercise Program,Joint Mobilizations, Manual Therapy,Neuromuscular Re-education,Patient/Caregiver Education,Self-Care/Home Management,Sensory Integration ,Soft Tissue Mobilization, Taping,Therapeutic Activities, Therapeutic Exercises, Vestibular Rehabilitation Modalities Cold Pack/Ice Massage,Electric Stimulation,Hot Packs, Ultrasound Next Visit Focus/Plan Next Note Type Treatment Note Next Visit Plan Initiate intrascapular strengthening, upper cervical isometrics, gentle core progression and balance. Masseter STM
--- NOTE | 2024-02-16 15:35 | PT.OTN ---
Current Diagnoses Cervicalgia (02/16/24) Physical Therapy Treatment Note PT-OP-A Visit Information Start: 12/07/23 12:08 Freq: Status: Active Protocol: Document 02/16/24 14:35 MB (Rec: 02/16/24 15:34 MB [id number]) Out-Patient Physical Therapy Visit Information Visit Information Visit Type Treatment Note Visit Start Time 14:35 Visit Stop Time 15:15 Visit Number 13 Number of TRANSPORTATION PLANNER Visits 0 Evaluation Information Evaluation Date 12/08/23 Precautions Precautions History of neck surgery/disc surgery C6-7. Please do not do too much deep cervical manual work or ROM exercises with pt . MRI head 01/27/24: NAD. PT-OP-B Current Condition Start: 12/07/23 12:08 Freq: Status: Active Protocol: Document 12/08/23 09:00 MB (Rec: 12/08/23 09:16 MB [id number]) Current Condition History of Current Condition Onset Date June 2023 Current Complaints Everyday headaches since June History of Current Condition Pt sees a neurologist for HAs and she was put on daily medications for HAs but it made her too tired to drive. She stopped taking the medication. She thinks that injections are next. 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 She has right greater than left TMD. She saw an oral surgeon in [facility] and she got a two new night guards. She has less popping. She has bone on bone right TMD. Her RA factor is high and she has issues with Raynaud's. She came back up to [place] 11/10/23 from [place] and she feels that the weather bothers her a lot. Pt had full hysterectomy and bladder sling in the past three years. ENT in [facility] [place] did not think it was sinus. Pt gets a neck x- ray every year and she had C6- 7 disc replacement six years ago. She is taking medication to help her sleep at night and she has prescriptions from TMD and neurologist providers. She takes BP meds at night. She threw up all three long weekend days. Treatment Goals Patient/Caregiver Goals To decrease the headaches to function PT-OP-C Subjective Start: 12/07/23 12:08 Freq: Status: Active Protocol: Document 02/16/24 14:35 MB (Rec: 02/16/24 15:34 MB [id number]) OP-PT Subjective Patient Comments Patient Comments Pt reports worsening symptoms of incontinence and swelling everywhere with regard to cystocele and rectocele and bladder prolapse. The worsening symptoms started after vaginal exam. The headaches seem like her neck. Pt has MRI scheduled of neck . PT-OP-J Posture/Palpation/Skin Start: 12/07/23 12:08 Freq: Status: Active Protocol: Document 12/08/23 09:00 MB (Rec: 12/08/23 09:29 MB [id number]) Posture Evaluation Comments Posture Comments Standing posture: forward head , rounded shoulders, increased sway back, left iliac crest higher than right. PT-OP-K Range of Motion Start: 12/07/23 12:08 Freq: Status: Active Protocol: Document 12/08/23 09:00 MB (Rec: 12/08/23 09:42 MB [id number]) Cervical Spine Range of Motion Cervical Spine Active Testing Position Standing Flexion 30 Extension 20 Rotation Left 60 Rotation Right 70 Lateral Flexion Left 5 Lateral Flexion Right 15 PT-OP-M Strength Start: 12/07/23 12:08 Freq: Status: Active Protocol: Document 12/08/23 09:00 MB (Rec: 12/08/23 09:42 MB [id number]) Shoulder Strength Shoulder Manual Muscle Testing Right Flexion 5 Normal Abduction (C5) 5 Normal Left Flexion 5 Normal Abduction (C5) 5 Normal Elbow/Forearm Strength Elbow and Forearm Manual Muscle Testing Left Flexion (C6) 5 Normal Extension (C7) 5 Normal Right Flexion (C6) 5 Normal Extension (C7) 5 Normal PT-OP-Q Treatments Start: 12/07/23 12:08 Freq: Status: Active Protocol: Document 02/16/24 14:35 MB (Rec: 02/16/24 15:34 MB [id number]) Manual Therapy Treatment Consent Patient gave verbal consent for manual Yes treatment Other Other Manual Treatments Pt hook lying with head and legs supported: right pect minor and major STM and positional release, suboccipital release, B upper traps and SCM CFM, positional release thoracic spine, B first rib isometric, right masseter positional release, B tragus pressure and more tension on the left PT-OP-T Assessment and Plan Start: 12/07/23 12:08 Freq: Status: Active Protocol: Document 02/16/24 14:35 MB (Rec: 02/16/24 15:34 MB [id number]) Physical Therapy Assessment Rehab Potential Rehabilitation Potential Fair Evaluation Complexity Number of Personal Factors/Comorbidities 1-2 Number of Body Systems Impaired 1-2 Clinical Presentation at Evaluation Evolving Impairments Impairments Activity Tolerance,Balance, Functional Activities, Functional Mobility,Pain, Posture,ROM,Sensation,Soft Tissue Mobility,Strength Goals 3 Impairment HDI reflects 82% disability Impairment Blank space Foreign Banknote Teller Goal (LTG) Pt will present with HDI score reflecting no more than 50% disability to reflect improved OLIVERA pain, quality of life and function. 01/05/24: 64% impairment on HDI today 02/07/24: HDI score reflects 58 % impairment LTG Duration 8 weeks 2 Impairment Decreased cervical rotation and SB Impairment Blank space Foreign Banknote Teller Goal (LTG) Pt will present with equal and non-painful cervical rotation and SB to improve scanning with gait, driving and daily functional tasks. 01/05/24: Mildly reduced right rotation and left SB compared to opposite side and no pain today but nausea afterwards 02/07/24: Cervical rotation to the right 71 deg and left 65 deg today. Cervical SB right 25 deg and left 20 deg. LTG Duration 8 weeks 1 Impairment Lack of HEP Impairment Blank space Foreign Banknote Teller Goal (LTG) Pt will perform progressive HEP with I including breathing , flexibility, gentle core and balance exercises to improve pain and quality of life. 01/05/24: Buteyko breathing, cat cow at counter, roller cane, racquet ball massage 02/07/24: Foam roller exercise makes her feel dizzy, breathing exercises make her feel good. LTG Duration 8 weeks Assessment Summary Assessment Manual work today and pt to bring in her pilates ball and will deflate to practice sacral and then cervical relaxation over deflated ball to work on relaxation of spine and neck as well as chin tucks. Physical Therapy Plan Frequency and Duration Frequency of Treatment 1-2x/Week Duration of treatment (weeks) 8 Plan of Care Start Date 02/07/24 Plan of Care End Date 03/11/24 Therapeutic Interventions Therapeutic Interventions Balance Training,Canalithic Repositioning,Home Exercise Program,Joint Mobilizations, Manual Therapy,Neuromuscular Re-education,Patient/Caregiver Education,Self-Care/Home Management,Sensory Integration ,Soft Tissue Mobilization, Taping,Therapeutic Activities, Therapeutic Exercises, Vestibular Rehabilitation Modalities Cold Pack/Ice Massage,Electric Stimulation,Hot Packs, Ultrasound Next Visit Focus/Plan Next Note Type Treatment Note Next Visit Plan Sacrum and head resting on deflated pilates ball to help with relaxation and for neck, gentle ROM and chin tuck. Initiate intrascapular strengthening, upper cervical isometrics, gentle core progression and balance. Masseter STM
--- NOTE | 2024-02-21 09:47 | PT.OTN ---
Current Diagnoses Cervicalgia (02/21/24) Physical Therapy Treatment Note PT-OP-A Visit Information Start: 12/07/23 12:08 Freq: Status: Active Protocol: Document 02/21/24 09:01 MB (Rec: 02/21/24 09:47 MB [id number]) Out-Patient Physical Therapy Visit Information Visit Information Visit Type Treatment Note Visit Start Time 09:02 Visit Stop Time 09:42 Visit Number 14 Number of OR DIRECTOR Visits 0 Evaluation Information Evaluation Date 12/08/23 Precautions Precautions History of neck surgery/disc surgery C6-7. Please do not do too much deep cervical manual work or ROM exercises with pt . MRI head 01/27/24: NAD. PT-OP-B Current Condition Start: 12/07/23 12:08 Freq: Status: Active Protocol: Document 12/08/23 09:00 MB (Rec: 12/08/23 09:16 MB [id number]) Current Condition History of Current Condition Onset Date June 2023 Current Complaints Everyday headaches since June History of Current Condition Pt sees a neurologist for HAs and she was put on daily medications for HAs but it made her too tired to drive. She stopped taking the medication. She thinks that injections are next. 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 Screen time is the worst. She has right greater than left TMD. She saw an oral surgeon in [facility] and she got a two new night guards. She has less popping. She has bone on bone right TMD. Her RA factor is high and she has issues with Raynaud's. She came back up to [place] 11/10/23 from [place] and she feels that the weather bothers her a lot. Pt had full hysterectomy and bladder sling in the past three years. ENT in [facility] did not think it was sinus. Pt gets a neck x- ray every year and she had C6- 7 disc replacement six years ago. She is taking medication to help her sleep at night and she has prescriptions from TMD and neurologist providers. She takes BP meds at night. She threw up all three long weekend days. Treatment Goals Patient/Caregiver Goals To decrease the headaches to function PT-OP-C Subjective Start: 12/07/23 12:08 Freq: Status: Active Protocol: Document 02/21/24 09:01 MB (Rec: 02/21/24 09:47 MB [id number]) OP-PT Subjective Patient Comments Patient Comments Pt had several days of painful headache. She saw neurologist and she wants her to cut back on the naproxen. She is going to have nerve conduction test and speech and cognition therapy. Her neurologist wants her to go up on her nortriptiline. She had cervical MRI 02/18/24: IMPRESSION: 1. Multilevel degenerative disc disease throughout the cervical spine as described above. The worst level is at C4-C5 which demonstrates moderate spinal canal stenosis with some abutment of the ventral spinal cord. 2. There is a syrinx that extends from C5-C7. PT-OP-J Posture/Palpation/Skin Start: 12/07/23 12:08 Freq: Status: Active Protocol: Document 12/08/23 09:00 MB (Rec: 12/08/23 09:29 MB [id number]) Posture Evaluation Comments Posture Comments Standing posture: forward head , rounded shoulders, increased sway back, left iliac crest higher than right. PT-OP-K Range of Motion Start: 12/07/23 12:08 Freq: Status: Active Protocol: Document 12/08/23 09:00 MB (Rec: 12/08/23 09:42 MB [id number]) Cervical Spine Range of Motion Cervical Spine Active Testing Position Standing Flexion 30 Extension 20 Rotation Left 60 Rotation Right 70 Lateral Flexion Left 5 Lateral Flexion Right 15 PT-OP-M Strength Start: 12/07/23 12:08 Freq: Status: Active Protocol: Document 12/08/23 09:00 MB (Rec: 12/08/23 09:42 MB [id number]) Shoulder Strength Shoulder Manual Muscle Testing Right Flexion 5 Normal Abduction (C5) 5 Normal Left Flexion 5 Normal Abduction (C5) 5 Normal Elbow/Forearm Strength Elbow and Forearm Manual Muscle Testing Left Flexion (C6) 5 Normal Extension (C7) 5 Normal Right Flexion (C6) 5 Normal Extension (C7) 5 Normal PT-OP-Q Treatments Start: 12/07/23 12:08 Freq: Status: Active Protocol: Document 02/21/24 09:01 MB (Rec: 02/21/24 09:47 MB [id number]) Therapeutic Exercises Supine Exercises Horizontal abduction with band Resistance Level 1 band Equipment Used Minimally inflated pilates ball under head Comments 10 slow reps Pilates ball relaxation Supine Exercise Name Under head: gentle chin tucks and minimal rotation Equipment Used 12 minimally inflated pilates ball Comments Knees bent, ball under sacrum and then head Manual Therapy Treatment Consent Patient gave verbal consent for manual Yes treatment Other Other Manual Treatments Pt hook lying with head and legs supported: B intraoral masseter STM and positional release and increased tension on the right Neuro Re-Education Treatment Other Activities Diaphragm and nasal breathing Comments Hooklying with minimally inflated pilates ball under sacrum and head, lights dimmed . Performed with gentle nasal breathing to improve parasympathetic engagement. Ed in relaxation on head, neck and sacrum. PT-OP-T Assessment and Plan Start: 12/07/23 12:08 Freq: Status: Active Protocol: Document 02/21/24 09:01 MB (Rec: 02/21/24 09:47 MB [id number]) Physical Therapy Assessment Rehab Potential Rehabilitation Potential Fair Evaluation Complexity Number of Personal Factors/Comorbidities 1-2 Number of Body Systems Impaired 1-2 Clinical Presentation at Evaluation Evolving Impairments Impairments Activity Tolerance,Balance, Functional Activities, Functional Mobility,Pain, Posture,ROM,Sensation,Soft Tissue Mobility,Strength Goals 3 Impairment HDI reflects 82% disability Impairment Blank space Signal Technician Goal (LTG) Pt will present with HDI score reflecting no more than 50% disability to reflect improved OLIVERA pain, quality of life and function. 01/05/24: 64% impairment on HDI today 02/07/24: HDI score reflects 58 % impairment LTG Duration 8 weeks 2 Impairment Decreased cervical rotation and SB Impairment Blank space Signal Technician Goal (LTG) Pt will present with equal and non-painful cervical rotation and SB to improve scanning with gait, driving and daily functional tasks. 01/05/24: Mildly reduced right rotation and left SB compared to opposite side and no pain today but nausea afterwards 02/07/24: Cervical rotation to the right 71 deg and left 65 deg today. Cervical SB right 25 deg and left 20 deg. LTG Duration 8 weeks 1 Impairment Lack of HEP Impairment Blank space Detention Goal (LTG) Pt will perform progressive HEP with I including breathing , flexibility, gentle core and balance exercises to improve pain and quality of life. 01/05/24: Buteyko breathing, cat cow at counter, roller cane, racquet ball massage 02/07/24: Foam roller exercise makes her feel dizzy, breathing exercises make her feel good. LTG Duration 8 weeks Assessment Summary Assessment Pt does have changes on cervical MRI and PT is concerned about syrinx finding that appears to be around surgical area. PT encourages pt to make an appointment at Dr. Joshi's office. It may be beneficil for neurosurgeon and neurologist and have results as well. Pt has a lot going on medically with pelvic floor issues and needing surgery and with cervical spine and these are barriers to PT and pt's headaches and migraines likely do have a cervical component. Pt c/o hoarseness. PT can con 't efforts for gentle manual work and exercise to tolerance . Physical Therapy Plan Frequency and Duration Frequency of Treatment 1-2x/Week Duration of treatment (weeks) 8 Plan of Care Start Date 02/07/24 Plan of Care End Date 03/11/24 Therapeutic Interventions Therapeutic Interventions Balance Training,Canalithic Repositioning,Home Exercise Program,Joint Mobilizations, Manual Therapy,Neuromuscular Re-education,Patient/Caregiver Education,Self-Care/Home Management,Sensory Integration ,Soft Tissue Mobilization, Taping,Therapeutic Activities, Therapeutic Exercises, Vestibular Rehabilitation Modalities Cold Pack/Ice Massage,Electric Stimulation,Hot Packs, Ultrasound Next Visit Focus/Plan Next Note Type Treatment Note Next Visit Plan Intrascapular strengthening, upper cervical isometrics, gentle core progression and balance. Masseter STM
--- NOTE | 2024-02-23 14:04 | PT.OTN ---
Current Diagnoses Cervicalgia (02/23/24) Physical Therapy Treatment Note PT-OP-A Visit Information Start: 12/07/23 12:08 Freq: Status: Active Protocol: Document 02/23/24 10:34 MB (Rec: 02/23/24 11:11 MB [id number]) Out-Patient Physical Therapy Visit Information Visit Information Visit Type Treatment Note Visit Note D/c 03/11/24, two more treatments Visit Start Time 10:34 Visit Stop Time 11:14 Visit Number 15 Number of MEDICAL RECORDS ADMINISTRATOR Visits 0 Evaluation Information Evaluation Date 12/08/23 Precautions Precautions History of neck surgery/disc surgery C6-7. Please do not do too much deep cervical manual work or ROM exercises with pt . MRI head 01/27/24: NAD. PT-OP-B Current Condition Start: 12/07/23 12:08 Freq: Status: Active Protocol: Document 12/08/23 09:00 MB (Rec: 12/08/23 09:16 MB [id number]) Current Condition History of Current Condition Onset Date June 2023 Current Complaints Everyday headaches since June History of Current Condition Pt sees a neurologist for HAs and she was put on daily medications for HAs but it made her too tired to drive. She stopped taking the medication. She thinks that injections are next. 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 Screen time is the worst. She has right greater than left TMD. [place] [facility] [place] got a two new night guards. She has less popping. She has bone on bone right TMD. Her RA factor is high and she has issues with Raynaud's. She came back up to [place] 11/10/23 from [place] and she feels that the weather bothers her a lot. Pt had full hysterectomy and bladder sling in the past three years. [place] [facility] [place] think [place] was [place]. Pt gets a neck x- ray every year and she had C6- 7 disc replacement six years ago. She is taking medication to help her sleep at night and she has prescriptions from TMD and neurologist providers. She takes BP meds at night. She threw up all three long weekend days. Treatment Goals Patient/Caregiver Goals To decrease the headaches to function PT-OP-C Subjective Start: 12/07/23 12:08 Freq: Status: Active Protocol: Document 02/23/24 10:34 MB (Rec: 02/23/24 11:11 MB [id number]) OP-PT Subjective Patient Comments Patient Comments Pt reports B hand and feet tingling. Pt has surgery on Apr 10 for cystocele/ rectocele. She is thinking about talking with OB again beforehand. 03/29/24 pt has a EMG with neurologist. Pt also has cogntive eval on 04/13/24. PT-OP-J Posture/Palpation/Skin Start: 12/07/23 12:08 Freq: Status: Active Protocol: Document 12/08/23 09:00 MB (Rec: 12/08/23 09:29 MB [id number]) Posture Evaluation Comments Posture Comments Standing posture: forward head , rounded shoulders, increased sway back, left iliac crest higher than right. PT-OP-K Range of Motion Start: 12/07/23 12:08 Freq: Status: Active Protocol: Document 12/08/23 09:00 MB (Rec: 12/08/23 09:42 MB [id number]) Cervical Spine Range of Motion Cervical Spine Active Testing Position Standing Flexion 30 Extension 20 Rotation Left 60 Rotation Right 70 Lateral Flexion Left 5 Lateral Flexion Right 15 PT-OP-M Strength Start: 12/07/23 12:08 Freq: Status: Active Protocol: Document 12/08/23 09:00 MB (Rec: 12/08/23 09:42 MB [id number]) Shoulder Strength Shoulder Manual Muscle Testing Right Flexion 5 Normal Abduction (C5) 5 Normal Left Flexion 5 Normal Abduction (C5) 5 Normal Elbow/Forearm Strength Elbow and Forearm Manual Muscle Testing Left Flexion (C6) 5 Normal Extension (C7) 5 Normal Right Flexion (C6) 5 Normal Extension (C7) 5 Normal PT-OP-Q Treatments Start: 12/07/23 12:08 Freq: Status: Active Protocol: Document 02/23/24 10:34 MB (Rec: 02/23/24 14:02 MB [id number]) Therapeutic Exercises Sitting Exercises MMT, range assessment today in sitting Comments See assement for details Neuro Re-Education Treatment Other Activities Reflex and sensation testing Comments See findings under assessment today Self-Care/Home Management Treatment Education Patient Education Home Exercise Program,Pain Management,Posture,Safety Other Education Education provided to pt: importance of follow-up appointment with Dr. Joshi, PT concerns about syrinx/MRI findings and connection between 8 months of intractable migraine as well as new urinary symptoms. It is difficulty to pen point radicular symptoms and UE symptoms do not seem to folllow C4-7 pattern particularly: she c/o B hands and feet. Also showed pt spinal model to talk about stenosis and reviewed dermatome map. PT-OP-T Assessment and Plan Start: 12/07/23 12:08 Freq: Status: Active Protocol: Document 02/23/24 10:34 MB (Rec: 02/23/24 11:11 MB [id number]) Physical Therapy Assessment Rehab Potential Rehabilitation Potential Fair Evaluation Complexity Number of Personal Factors/Comorbidities 1-2 Number of Body Systems Impaired 1-2 Clinical Presentation at Evaluation Evolving Impairments Impairments Activity Tolerance,Balance, Functional Activities, Functional Mobility,Pain, Posture,ROM,Sensation,Soft Tissue Mobility,Strength Goals 3 Impairment HDI reflects 82% disability Impairment Blank space Insurance Investigator Goal (LTG) Pt will present with HDI score reflecting no more than 50% disability to reflect improved OLIVERA pain, quality of life and function. 01/05/24: 64% impairment on HDI today 02/07/24: HDI score reflects 58 % impairment LTG Duration 8 weeks 2 Impairment Decreased cervical rotation and SB Impairment Blank space Jail Goal (LTG) Pt will present with equal and non-painful cervical rotation and SB to improve scanning with gait, driving and daily functional tasks. 01/05/24: Mildly reduced right rotation and left SB compared to opposite side and no pain today but nausea afterwards 02/07/24: Cervical rotation to the right 71 deg and left 65 deg today. Cervical SB right 25 deg and left 20 deg. LTG Duration 8 weeks 1 Impairment Lack of HEP Impairment Blank space Jail Goal (LTG) Pt will perform progressive HEP with I including breathing , flexibility, gentle core and balance exercises to improve pain and quality of life. 01/05/24: Buteyko breathing, cat cow at counter, roller cane, racquet ball massage 02/07/24: Foam roller exercise makes her feel dizzy, breathing exercises make her feel good. LTG Duration 8 weeks Assessment Summary Assessment Given cervical MRI findings and pt ongoing symptoms ( intractable migraine/OLIVERA for 8+ months), PT and pt agree for another ROM, MMT screen today and pt presents with: pt denies paresthesias down arms and she reports numbness in all toes and in hands and hands are cold per pt and to PT touch today. B elbow flexion, wrist radial deviation and knee extension reflexes are normal and mildly more reactive on the right. Shoulder elevation B 5/5, B shoulder flexion and abduction 4+/5; right elbow flexion and extensio 4+/5, left elbow flexion and extension 4/5 (old left wrist fracture and surgery); right supination 4/5 and pronation 3+/5, left supination 3+/5, pronation 3+/ 5; B ocean lifeguard is weaker to squeezing PT fingers. Right hip flexor 5/5, left hip flexor 4+/5; knee extension right 5/5, left is 4+/5; B knee flexors 4+/5, B ankle DF and great toe extension 5/5. Pt reports occ left side facial drooping with bad migraines and right side of face feels tight. At this point, PT will not work on cervical spine given syrinx/ MRI findings and PT can con't for next two treatments to provide HEP. Physical Therapy Plan Frequency and Duration Frequency of Treatment 1-2x/Week Duration of treatment (weeks) 8 Plan of Care Start Date 02/07/24 Plan of Care End Date 03/11/24 Therapeutic Interventions Therapeutic Interventions Balance Training,Canalithic Repositioning,Home Exercise Program,Joint Mobilizations, Manual Therapy,Neuromuscular Re-education,Patient/Caregiver Education,Self-Care/Home Management,Sensory Integration ,Soft Tissue Mobilization, Taping,Therapeutic Activities, Therapeutic Exercises, Vestibular Rehabilitation Modalities Cold Pack/Ice Massage,Electric Stimulation,Hot Packs, Ultrasound Next Visit Focus/Plan Next Note Type Treatment Note Next Visit Plan Intrascapular strengthening standing with band including ER, row, reverse fly and pull down with triceps, gentle core progression and balance. Could consider body blade. Masseter STM and other peripheral treatments away from cervical spine.
--- NOTE | 2024-03-01 10:38 | PT-OP ANOTE ---
Pt canceled appointment today with note that she has shingles. She has one more PT appointment scheduled with PT next week and then anticipate d/c PT.
--- NOTE | 2024-03-06 12:56 | PT.OPDS ---
Current Diagnoses Cervicalgia (02/23/24) Visit Care Team Role Provider Type Roseanna Joshi MD Attending Provider Physician Family Provider Primary Care Provider Referring Provider Specialty: Internal Medicine Address: [place], [address] Email: Visit Number Visit Number 15 Discharge Summary PT-OP-B Current Condition Start: 12/07/23 12:08 Freq: Status: Active Protocol: Document 12/08/23 09:00 MB (Rec: 12/08/23 09:16 MB [id number]) Current Condition History of Current Condition Onset Date June 2023 Current Complaints Everyday headaches since June History of Current Condition Pt sees a neurologist for HAs and she was put on daily medications for HAs but it made her too tired to drive. She stopped taking the medication. She thinks that injections are next. 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 She has right greater than left TMD. She saw an oral surgeon in [facility] [place] and she got a two new night guards. She has less popping. She has bone on bone right TMD. Her RA factor is high and she has issues with Raynaud's. She came back up to [place] 11/10/23 from [place] and she feels that the weather bothers her a lot. Pt had full hysterectomy and bladder sling in the past three years. ENT in [facility] [place] not think it was sinus. Pt gets a neck x- ray every year and she had C6- 7 disc replacement six years ago. She is taking medication to help her sleep at night and she has prescriptions from TMD and neurologist providers. She takes BP meds at night. She threw up all three long weekend days. Treatment Goals Patient/Caregiver Goals To decrease the headaches to function PT-OP-C Subjective Start: 12/07/23 12:08 Freq: Status: Active Protocol: Document 02/23/24 10:34 MB (Rec: 02/23/24 11:11 MB [id number]) OP-PT Subjective Patient Comments Patient Comments Pt reports B hand and feet tingling. Pt has surgery on Apr 10 for cystocele/ rectocele. She is thinking about talking with OB again beforehand. 03/29/24 pt has a EMG with neurologist. Pt also has cogntive eval on 04/13/24. PT-OP-J Posture/Palpation/Skin Start: 12/07/23 12:08 Freq: Status: Active Protocol: Document 12/08/23 09:00 MB (Rec: 12/08/23 09:29 MB [id number]) Posture Evaluation Comments Posture Comments Standing posture: forward head , rounded shoulders, increased sway back, left iliac crest higher than right. PT-OP-K Range of Motion Start: 12/07/23 12:08 Freq: Status: Active Protocol: Document 12/08/23 09:00 MB (Rec: 12/08/23 09:42 MB [id number]) Cervical Spine Range of Motion Cervical Spine Active Testing Position Standing Flexion 30 Extension 20 Rotation Left 60 Rotation Right 70 Lateral Flexion Left 5 Lateral Flexion Right 15 PT-OP-M Strength Start: 12/07/23 12:08 Freq: Status: Active Protocol: Document 12/08/23 09:00 MB (Rec: 12/08/23 09:42 MB [id number]) Shoulder Strength Shoulder Manual Muscle Testing Right Flexion 5 Normal Abduction (C5) 5 Normal Left Flexion 5 Normal Abduction (C5) 5 Normal Elbow/Forearm Strength Elbow and Forearm Manual Muscle Testing Left Flexion (C6) 5 Normal Extension (C7) 5 Normal Right Flexion (C6) 5 Normal Extension (C7) 5 Normal PT-OP-T Assessment and Plan Start: 12/07/23 12:08 Freq: Status: Active Protocol: Document 03/06/24 12:55 MB (Rec: 03/06/24 12:56 MB [id number]) Physical Therapy Assessment Assessment Summary Assessment Pt had to cancel last two appointments d/t shingles. She rescheduled one more in March but that is after her POC is up. PT left message . PT completed a full progress note and assessment last treatment date and needs to follow-up with Roseanna Joshi and neurosurgeon about cervical MRI findings. Ready to d/c PT.
== END 2024-03-17 10:05 | disposition home or self-care (01) ==
LOC: PHYS 10:30
PROVIDERS: Family Provider Internal Medicine; PCP Internal Medicine; Referring Provider Internal Medicine; Visit Provider Internal Medicine
DX: M54.2 Cervicalgia (principal)
CPT/HCPCS: 97110; 97112; 97140; 97161; 97535

== ENCOUNTER → 2024-04-07 09:20 | Outpatient (CLI) | payer OTHER, SELFPAY ==
[2022-02-12 18:19] VITALS: BMI 27.2
[2024-04-10 10:08] LABS: Candida species Positive (Negative); Gardnerella vaginalis Negative (Negative); Trichomoas vaginalis Negative (Negative)
== END ==
PROVIDERS: Family Provider Internal Medicine; PCP Internal Medicine; Visit Provider Obstetrics & Gynecology
DX: N89.8 Other specified noninflammatory disorders of vagina (principal)
CPT/HCPCS: 87480; 87510; 87660

== ENCOUNTER → 2024-12-20 10:15 | Outpatient (CLI) | payer OTHER, SELFPAY ==
[2022-02-12 18:19] VITALS: BMI 27.2
[2024-12-20 12:00] LABS: Free T4, Direct Thyroxine 1.18 ng/dL (0.78-2.19)
[2024-12-20 12:09] LABS: Estradiol, Total 52.8 pg/mL
[2024-12-20 12:14] LABS: Thyroid Stimulating Hormone 1.13 uIU/mL (0.47-4.68)
== END ==
LOC: LAB 10:16
PROVIDERS: Family Provider Internal Medicine; PCP Internal Medicine; Referring Provider Obstetrics & Gynecology; Visit Provider Obstetrics & Gynecology
DX: N95.1 Menopausal and female climacteric states (principal)
CPT/HCPCS: 36415; 82670; 84144; 84402; 84403; 84439; 84443

== ENCOUNTER → 2024-12-25 16:19 | Outpatient (CLI) | payer OTHER, SELFPAY ==
[2022-02-12 18:19] VITALS: BMI 27.2
[2024-12-25 18:46] LABS: Appearance Urine UA CLEAR; Bilirubin Urine UA NEGATIVE (NEGATIVE); Color Urine UA YELLOW; Glucose Urine UA NEGATIVE (Negative); Ketones Urine UA 1+ (NEGATIVE); Leukocyte Esterase Urine UA NEGATIVE (NEGATIVE); Nitrite Urine UA NEGATIVE (Negative); Occult Blood Urine UA 1+ (Negative); Protein Urine UA NEGATIVE (Negative); Specific Gravity Urine UA 1.025 (1.000-1.035); Urobilinogen Urine UA 0.2 E.U./dL (0.2)
[2024-12-25 18:53] LABS: Bacteria Urine Occasional (0-1); Culture Indicated Urine Cult Not Indicated; RBC Urine 0-1/HPF (0-5/HPF); Squamous Epithelial Cell Urine 1-5 /HPF (0-5/HPF); Urine Volume Low Vol <10mL (spun); WBC Urine 0-1/HPF (0-5/HPF)
== END ==
PROVIDERS: PCP Internal Medicine; Visit Provider Obstetrics & Gynecology Gynecology
DX: N39.41 Urge incontinence (principal)
CPT/HCPCS: 81001

== ENCOUNTER 2025-01-01 14:18 | Outpatient (RCR) | payer OTHER, SELFPAY ==
[2022-02-12 18:19] VITALS: BMI 27.2
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
== END 2025-02-09 10:13 | disposition home or self-care (01) ==
LOC: PHYS 14:18
PROVIDERS: PCP Internal Medicine; Referring Provider Internal Medicine; Visit Provider Internal Medicine
DX: M26.603 Bilateral temporomandibular joint disorder, unspecified (principal); M26.609 Unspecified temporomandibular joint disorder, unspecified side
CPT/HCPCS: 97110; 97162; 97535

== ENCOUNTER 2025-01-30 06:17 | Day surgery (SDC) | payer OTHER, SELFPAY ==
[2022-02-12 18:19] VITALS: BMI 27.2
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
[2025-01-22 13:02] VITALS: BMI 25.8
[2025-01-30] VITALS (18 sets, daily range): BP systolic 109–149; BP diastolic 66–92; PULSE 64–98; RESP 10–20; TEMP 36.1–36.8; O2SAT 96–100; BMI 25.7
--- NOTE | 2025-01-30 | PATH_ITS ---
[facility] Accession Number: [id number] No. of containers..01 Tissue . 01 Material submitted: . body - PARTIAL SLING EXCISION . 01 Clinical history: . FOR GROSS INSPECTION . 01 Diagnosis: PARTIAL SLING EXCISION: Blue surgical mesh (for gross examination). Unremarkable fibroconnective tissue. MRV 02/05/2025 1742 Local . 01 Electronically signed: . Love Javier MD, Pathologist NPI- [id number] . 01 Gross description: . Received in formalin with two identifiers and partial sling excision, is a section of blue surgical mesh, 1.3 x 1.0 cm, with a moderate amount of attached buck soft tissue. A portion of the buck soft tissue is submitted in A1. ([id number]) /MRV 02/01/2025 1807 Local . 01 Pathologist provided ICD-10: N81.11, N81.9, N81.6 . 01 CPT . 405023, 802088 Specimen Comment: A courtesy copy of this report has been sent to [facility] Pathology Performed at: [address] [address], [place], [place] [id number] MD Romulo Sevilla MD Phone: [phone]
[2025-01-30] MEDS: LACTATED RINGERS 1,000 ML 42 ML IV ×3 (06:58→13:50)
[2025-01-30] MEDS: ACETAMINOPHEN IV 1,000 MG/100 ML VIAL 400 MG IV (06:58)
[2025-01-30] MEDS: SCOPOLAMINE 1 PATCH TOP (06:58)
[2025-01-30] MEDS: PHENAZOPYRIDINE 100 MG TABLET 200 MG PO (07:20)
[2025-01-30] MEDS: GABAPENTIN 300 MG CAPSULE PO (07:20)
[2025-01-30 07:24] LABS: Add Manual Diff / Slide Review NO; Hematocrit 41.0 % (36-46); Hemoglobin 14.1 g/dL (12.0-16.0); Lymphocytes Absolute Auto 2200 /uL (1100-4500); Mean Corpuscular HGB Conc 34.3 % (30-36); Mean Corpuscular Hemoglobin 29.8 PG (26-34); Mean Corpuscular Volume 86.9 fL (80-100); Platelet Count 213 X10^3/uL (150-400)
--- NOTE | 2025-01-30 07:30 | PM.PREOP ---
Pre-operative Note Interval Note History & Physical reviewed/Exam performed by Physician: Yes Changes to H&P: No
[2025-01-30 07:35] LABS: Alanine Aminotransferase 15 IU/L (<35); Albumin 4.2 g/dL (3.5-5.0); Albumin Globulin Ratio 1.5 (1.0-2.8); Alkaline Phosphatase 57 U/L (38-126); Blood Urea Nitrogen 20 mg/dL (7-17); Calcium 8.7 mg/dL (8.4-10.2); Carbon Dioxide 26 mmol/L (22-32); Chloride 104 mmol/L (98-107); Estimated Glomerular Filt Rate > 60 mL/min (>60); Globulin 2.8 g/dL (1.7-4.1); Glucose 89 mg/dL (70-99); HEMOLYSIS 40 (0-50); Potassium 4.2 mmol/L (3.4-5.1); Sodium 137 mmol/L (137-145); Total Protein 7.0 g/dL (6.3-8.2)
[2025-01-30] MEDS: CEFAZOLIN 2 GM/100 ML PREMIX 100 ML IV (08:15)
[2025-01-30] MEDS: BUPIVACAINE 0.25% W/ EPI 30 ML VIAL INJ (09:00)
[2025-01-30] MEDS: LIDOCAINE 1% W/EPI 10ML 20 ML INJ (09:01)
--- NOTE | 2025-01-30 09:08 | SUR.OPER ---
Lithotomy on padded OR bed. Nordic Pad Positioner under torso. Head on pillow, arms padded and tucked at sides. purple strap across shoulders. Legs secured in padded yellow fins stirrups.
--- NOTE | 2025-01-30 11:46 | P.OP_ITS ---
Operative Date/Time/Diagnoses Date of procedure: 01/30/25 Time of procedure: 08:00 Pre-op diagnosis: cystocele, vaginal vault prolapse, rectocele, recurrent stress incontinence, prior sling Post-op diagnosis: same Procedure & Clinicians Procedure: Procedures Operation Date: 01/30/25 07:45 Actual Procedure Side Surgeon p Robotic Sacral colpopexy, mid urethral sling, cystoscopy Not Applicable Matt Levy MD Operative Notes Findings: Operative Note Surgeon:? Matt Levy MD Shirt Maker:?? [] Pre-Op Diagnosis:?? Vaginal vault prolapse, cystocele, rectocele, Recurrent stress urinary incontinence prior sling, then sling erosion, then prior sling revision Post-Op Diagnosis:?? Same? Procedure:?? Robotic assisted laparoscopic sacral colpopexy, mid urethral TVT sling, paprtial sling excision cystoscopy Findings (brief): 1. EUA with stage 2 POP. 5 ports, usual fashion.?? some mild Adhesions of sigmoid to the vaginal cuff and pelvic sidewalls, all lysed sharply.? Prior hyst, BSO.? 2.? Restorelle mesh cut to 6 cm Ant and 8 cm Post, attached to vagina with sutures of 2-0 vicyrl.?? Excellent support of all 3 compartments.? 3.? during dissection for the sling, the prior sling was encountered on the Left side, was in the way, so a partial sling excision was done to facilitate this surgery 4. TVT sling placed at mid-urethra, tension-free.? 5.? Cystoscopy with normal bladder, ureters, urethra, no trocar injury, bilateral ureteral jets.? Date of Surgery:? January 30, 2025 Complications:? None Specimens:? Partial sling excision of prior sling Anesthesia Technique: General endotracheal Estimated Blood Loss (mls):? 50 Blood Replacement (mls):? None Drains:? Cavazos Condition:? Stable Procedure in detail: After consent was confirmed, the patient was taken to the operating room and?positioned with the [place] Pad on the OR bed, and then placed under general anesthesia without incident. ?Sequential compression devices were in place and active. ?She received perioperative antibiotics. ?The arms were tucked and her legs were placed in the dorsal lithotomy position using the Eddi stirrups. ??She was then prepped and draped in the usual sterile fashion. ?An examination under anesthesia was consistent with the preoperative assessment. ?A three-way 16 slovenian cavazos catheter was placed. ?Attention was turned to the abdomen. All 5 trocar sites were injected with 0.25% Marcaine with epinephrine prior to incision. A supra- umbilical 8?mm port was placed 2-3 cm above the umbilicus: a 8?mm incision was made, the Veress needle was placed, and pneumoperitoneum was achieved at low flow of 5, reaching a pressure of about 12, with 2-3 liters of CO2 gas. ?The abdominal wall was tented out to avoid any injury to underlying structures, and the trocar was introduced into the abdomen with ease, flow turned up to 40, pressure set at 12. ??Three?additional 8 mm robotic ports were placed, along the same line across the abdomen: ?? right lateral abdomen, left mid abdomen, left lateral abdomen,?under direct visualization atraumatically.??An additional perinatal breastfeeding assistant 8 mm port was placed in the RUQ.?The patient was placed into steep Trendelenberg. ?The DV5?robot was Docked from a side-dock approach, using 3 arms. ?During the dissection, monopolar scissors and bipolar [place]?forceps were used, and during suturing, these were replaced with 2 needle drivers. ?The Gazzang grasper was used at the 3rd arm for surgical assistance. ?The 4th port was for the surgical resident (passing sutures and suction / irrigation). ?At this point, I went to the robotic console to operate the robot. Adhesions were lysed as noted above. The sigmoid was retracted, and the sacral promontory was identified, and the ureters were identifed lateral to the intended surgical planes.? The bladder was dissected off the vagina for a distance of 6 cm, and the vagina was dissected off the posterior peritoneum, most of the way down the posterior vagina, approx 8 cm. ??The Christo Surgical Sacral Colpopexy tip with the Lay Arch was used to expose the vagina for dissection. ?Retrograde fill of the bladder facilitated the dissection. ?The peritoneum over the sacral promontory was incised and the dissection was carried down into the pelvis. ?The loose areolar connective tissue overlying the sacral promontory was dissected until the sacrum was clearly identified. ?The anterior arm of the Y-polypropylene mesh was fashioned as noted above, and sutured to the anterior vagina with several interrupted 2-0 vicryl sutures. ?The posterior arm of the mesh was fashioned as noted above, and sutured to the posterior vagina with several interrupted 2-0 vicryl sutures. ?The mesh tail was grasped to create a Y shape, cut to the appropriate length, and then attached to the sacral promontory in a tension-free manner, using 2 sutures of 2-0 Ethibond (permanent suture). The sacral peritoneum was closed over the mesh with a running 2-0 PDS / V-Lock suture, and then continued to close the peritoneum over the vaginal part of the mesh. I left the console and scrubbed and gowned and returned to the OR table. The robot was undocked.? All port sites were inspected for hemostasis, and pneumoperitoneum released. The skin incisions were reapproximated with 4-0 monocryl, and then dermabond was placed. ?Attention was turned to the remainder of the vagina where excellent apical support was appreciated. ?Cystourethroscopy was performed which revealed bilateral ureteral efflux of pyridium and no evidence of injury or suture material within the bladder urethra. With the Cavazos catheter in place, the anterior vaginal mucosa beneath and lateral to the urethra was injected with 10-20 cc of? 0.5% lidocaine / epinephrine 1:200,000.? A 2-3 cm midline incision was made at the level of the midurethra with a scapel. Metzenbaum scissors were used to dissect the vagina from the urethra and then create tunnels beneath the vaginal mucosa up toward the pubic bone on each side.? As noted above,, during dissection for the sling, the prior sling was encountered on the Left side, and it was in the way, so a partial sling excision was done to facilitate this surgery. The medial edge of the prior blue mesh sling was grasped with a hemostat and was dissected off of the vagina, having already been dissected off of the urethra. It was dissected up into the sling tunnel and then excised. It was proximally 2 cm in length in the usual 8-10 mm in width. It was passed off the field and sent as gross specimen. A marking pen was used to seda the skin just above the pubic bone and 2 cm from the midline bilaterally, and two small 8-10 mm incisions were made on the suprapubic skin.? The trocar was passed from the right vaginal tunnel, behind the pubic bone, to the right suprapubic incision, and this was repeated on the left side.? The Cavazos catheter was removed, and cystoscopy was performed with a 70 degree lens. There was no trocar injury, and the bladder, ureters, and urethra were normal.? The Cavazos catheter was reinserted.? The sling was pulled into position in a tension-free manner, and a Azra clamp was easily passed between the sling and the urethra.? The plastic sheaths were removed to anchor the sling, and tension was checked again. The ends of the sling were trimmed just below the skin, and the skin incisions were cleaned and closed with dermabond. The vaginal incision was closed with 2-0 vicryl in a running fashion. Sponge, needle and instrument count was correct.? The patient tolerated the procedure well and was taken to the recovery room in stable condition. Matt Levy MD UroGynecology & Pelvic Reconstructive Surgery [place], [place] Applied: implant(s) (TVT sling)
[2025-01-30] MEDS: ONDANSETRON 4 MG/2 ML INJ IV (12:15)
[2025-01-30] MEDS: OXYCODONE IR 5 MG TABLET PO ×2 (12:15→18:36)
--- NOTE | 2025-01-30 15:19 | PC.NURSE ---
Addendum entered by Afua Burton R.N. 01/30/25 19:18: Patient had a small amount of red blood to her ulices pad. She is back to bed, and senna has been ordered for her. She ate dinner up in the chair and is in bed resting. Original Note: Patient is comfortable in bed, she was given oxycodone before coming up to her room. She is tolerating her ivf and resting comfortably. She has 5 lapsites with durmobond across her mid abdomen, and two lapsites on he pubic area with durmobond.
[2025-01-30] MEDS: KETOROLAC 30 MG/ML VIAL 15 MG IV (20:15)
[2025-01-30] MEDS: DOCUSATE 100 MG CAPSULE PO (20:15)
[2025-01-30] MEDS: ACETAMINOPHEN 325 MG TABLET 975 MG PO (20:15)
[2025-01-30] MEDS: SENNOSIDES 8.6 MG TABLET PO (20:15)
[2025-01-31] MEDS: MORPHINE 2 MG/ML INJ IV (00:30)
[2025-01-31] MEDS: KETOROLAC 30 MG/ML VIAL 15 MG IV ×2 (02:15→08:05)
[2025-01-31] MEDS: ACETAMINOPHEN 325 MG TABLET 975 MG PO (05:46)
[2025-01-31 07:36] VITALS: BP 116/77; PULSE 77; RESP 16; TEMP 36.5; O2SAT 99
[2025-01-31] MEDS: DOCUSATE 100 MG CAPSULE PO (08:04)
--- NOTE | 2025-01-31 10:28 | CM.DANOTE ---
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 PCP: Roseanna Joshi Payer: Fabiana Reviewed chart, pt discussed in multidisciplinary rounds this morning. Patient has planned for home, DC order has already been initiated this morning. Patient lives independently with spouse who she feels confident can look after her upon return home. No barriers identified at this time to patient's safe discharge home w/family to assist; close outpatient f/u recommended. Social work team will plan to follow clinical course closely in case any DC needs or concerns arise. JOSEPH Mtz Discharge Planning/Care Management CM Discharge Assessment Start: 01/30/25 06:52 Freq: Status: Active Protocol: Document 01/31/25 10:26 DORIS (Rec: 01/31/25 10:28 DORIS [id number]) Discharge Planning Assessment Assigned Discharge JOSEPH Crowder Sugar Trucker DPOA/Assigned Milad Benito [phone] Designee Name Advance Directives? Yes Advance Directives No on File History Provided By Patient,Medical Record Prior Living House Arrangements Household Members spouse Independent with ADL Yes 's Is patient alert and Yes oriented? Comment Independent Comment Home Barriers to No Discharge Discharge Plan Home Transportation Patients will transport her home at DC Arrangement Referrals Initiated None needed
--- NOTE | 2025-01-31 10:52 | PC.NURSE ---
Day shift: Paperwork signed and all questions answered. This entry writer talked to Dr Levy and Dr Barkley on phone to make sure it is ok to d/c Pt before being seen by MD today. All clear and the d/c date changed by this entry writer per Dr Levy. Pt has all personal belongings. No new MD scripts. Extensive d/c instructions in packet from Dr Levy. Left unit via WC at approx 1045. Taken by BELINDA Lama.
== END 2025-01-31 10:45 | disposition home or self-care (01) ==
LOC: OR 06:18 → AC 06:18
PROVIDERS: PCP Internal Medicine; Referring Provider Obstetrics & Gynecology Gynecology; Visit Provider Obstetrics & Gynecology Gynecology
PROC: 0USG4ZZ Reposition Vagina, Percutaneous Endoscopic Approach (ICD-10-PCS; CPT 57425; principal; 2025-01-30 07:45)
DX: N99.3 Prolapse of vaginal vault after hysterectomy (principal); N39.46 Mixed incontinence; N32.81 Overactive bladder; Z90.711 Acquired absence of uterus with remaining cervical stump; Z90.79 Acquired absence of other genital organ(s); Z90.722 Acquired absence of ovaries, bilateral; N73.6 Female pelvic peritoneal adhesions (postinfective)
CPT/HCPCS: 57425; 57288; S2900; 80053; 85025; C1781; C1771; J0131; J0690; J1100; J1171; J1885; J2250; J2270; J2405; J3010

== ENCOUNTER → 2025-02-08 17:05 | Outpatient (CLI) | payer OTHER, SELFPAY ==
[2025-01-30 06:52] VITALS: BMI 25.7
[2025-02-08 17:59] LABS: Appearance Urine UA CLEAR; Bilirubin Urine UA NEGATIVE (NEGATIVE); Color Urine UA YELLOW; Glucose Urine UA NEGATIVE (Negative); Ketones Urine UA NEGATIVE (NEGATIVE); Leukocyte Esterase Urine UA 2+ (NEGATIVE); Nitrite Urine UA NEGATIVE (Negative); Occult Blood Urine UA 2+ (Negative); Protein Urine UA NEGATIVE (Negative); Specific Gravity Urine UA 1.010 (1.000-1.035); Urobilinogen Urine UA 0.2 E.U./dL (0.2)
[2025-02-08 18:08] LABS: pH Urine UA 6.5 (4.5-8.0)
[2025-02-08 18:22] LABS: Culture Indicated Urine Specimen Cultured
== END ==
PROVIDERS: PCP Internal Medicine; Referring Provider Obstetrics & Gynecology; Visit Provider Obstetrics & Gynecology
DX: R39.15 Urgency of urination (principal)
CPT/HCPCS: 81001; 87077; 87086; 87186